=== PATIENT | female | born 1960 | race Caucasian/White ===

== ENCOUNTER 2019-07-14 13:15 | Outpatient (CLI) | payer OTHER, SELFPAY ==
--- NOTE | 2019-07-14 11:30 | DI.RAD_ITS ---
INDICATION: lbp M54.5, G89.29 OTHER CHRONIC PAIN . COMPARISON: No exams were available for comparison TECHNIQUE: 2D digital imaging was performed. FINDINGS: Thevertebral bodies are intact. A narrowed vacuum disc is identified at L5-S1. There is discogenic sc lerosis and hypertrophic spurring and there is a grade 3 L5 on S1 spondylolisthesis. The pedicle, spi nous and transverse processes appear intact. Degenerative changes involving the SI joints. The sacrum is unremarkable IMPRESSION: Degenerative bony changes are associated with a narrowed vacuum disc at L5-S1 where there is a grade 3 spondylolisthesis.
[2019-07-14 12:01] LABS: Abs Immature Grans 0.02 k/cumm (0.0-0.09); Absolute Basophil Count 0.02 k/cumm (0.0-0.2); Absolute Eosinophil Count 0.19 k/cumm (0.0-0.7); Absolute Lymphocyte Count 1.02 k/cumm (1.2-3.4); Absolute Monocyte Count 0.29 k/cumm (0.11-0.7); Absolute Neutrophil Count 3.94 k/cumm (1.2-6.7); Basophils % 0.4; Eosinophils % 3.5; HCT 38.5 % (36.0-46.0); HGB 12.6 g/dL (12.0-15.5); Immature Grans % 0.4; Lymphocytes % 18.6; Mean Corp. HGB Concentration 32.7 g/dL (32.0-36.0); Mean Corpuscular Hemoglobin 34.7 pg (27.0-33.0); Mean Corpuscular Volume 106.1 fL (80-95); Mean Platelet Volume 9.2 fL (8.0-11.0); Monocytes % 5.3; Neutrophils % 71.8; Platelet Count 177 x1000/uL (130-400); RBC 3.63 m/cumm (4.00-5.20); RBC Distribution Width 13.1 % (11.7-14.6); White Blood Cell Count 5.48 k/cumm (4.4-10.8)
[2019-07-14 12:21] LABS: Diff Comment RBC Morph Reviewed
[2019-07-14 12:22] LABS: Hypochromasia 1+; Macrocytosis 2+
[2019-07-14 13:04] LABS: ALT 26 U/L (14-59); AST 24 U/L (15-37); Albumin 3.6 g/dL (3.4-5.0); Alkaline Phosphatase 91 U/L (46-116); Anion Gap 9.8 mmol/L (3-11); BUN 17 mg/dL (7-18); Bilirubin, Total 0.6 mg/dL (0.2-1.0); CO2 28.2 mmol/L (21.0-32.0); CREATININE 1.05 mg/dL (0.55-1.02); Calcium 8.8 mg/dL (8.5-10.1); Chloride 105 mmol/L (98-107); Creatine Kinase 59 U/L (26-192); Estimated GFR 53.64 (mL/min/1.73m2); Glucose 101 mg/dL (70-100); Potassium 4.2 mmol/L (3.5-5.1); Sodium 143 mmol/L (136-145); TSH (W/Ref FT4) 2.05 uIU/mL (0.36-3.74); Total Protein 7.3 g/dL (6.4-8.2)
[2019-07-14 16:40] LABS: Calculated LDL 109 mg/dL; Cholesterol 200 mg/dL (50-200); HDL Cholesterol 68 mg/dL (40-60); Triglyceride 119 mg/dL (30-150); Vitamin B12 854 pg/mL (193-986)
== END 2019-07-14 13:35 ==
PROVIDERS: PCP Family Medicine; Visit Provider Family Medicine
DX: G89.29 Other chronic pain (principal); M54.5 Low back pain; E78.5 Hyperlipidemia, unspecified; I10 Essential (primary) hypertension; R60.0 Localized edema; D51.0 Vitamin B12 deficiency anemia due to intrinsic factor deficiency; M43.17 Spondylolisthesis, lumbosacral region; M51.36 Other intervertebral disc degeneration, lumbar region
CPT/HCPCS: 36415; 80053; 80061; 82550; 72110; 82607; 84443; 85025

== ENCOUNTER 2019-08-03 02:39 | Outpatient (CLI) | payer OTHER, SELFPAY ==
[2019-08-03 12:29] LABS: Reticulocyte 2.4 % (0.5-2.4)
[2019-08-03 13:52] LABS: Anion Gap 9.3 mmol/L (3-11); BUN 12 mg/dL (7-18); CO2 28.7 mmol/L (21.0-32.0); CREATININE 0.94 mg/dL (0.55-1.02); Calcium 9.1 mg/dL (8.5-10.1); Chloride 104 mmol/L (98-107); Folate 3.3 ng/mL (8.6-20.0); Glucose 89 mg/dL (70-100); Potassium 4.6 mmol/L (3.5-5.1); Sodium 142 mmol/L (136-145)
== END 2019-08-03 02:59 ==
PROVIDERS: PCP Family Medicine; Visit Provider Family Medicine
DX: R60.0 Localized edema (principal); D75.89 Other specified diseases of blood and blood-forming organs
CPT/HCPCS: 36415; 80048; 82746; 85045

== ENCOUNTER 2019-08-10 00:43 | Outpatient (CLI) | payer OTHER, SELFPAY ==
--- NOTE | 2019-08-10 11:52 | DI.MAMMO_ITS ---
EXAM: MAMMO SCREENING CLINICAL HISTORY: screening Z12.31. TECHNIQUE: Mammograms were interpreted according to the usual protocol including computer analysis with CAD system, tomosynthesis and C-view imaging. COMPARISON: FEBRUARY 2015 FINDINGS: The breasts are of moderate density with fairly symmetrical distribution of fibroglandular tissue. N o dominant mass or clumped microcalcification is identified in either breast. Current examination is compared with previous examinations including February 2015 and there has been no gross interval change i n appearance in comparison with the previous studies. IMPRESSION: No specific evidence of malignancy at this time. Routine screening examinations are suggested at year ly intervals due to the family history of breast carcinoma. Category 1, breast density category B. BI-RADS Cat 1 - Negative Breast Density - Category B - Scattered areas of fibroglandular density
== END 2019-08-10 01:03 ==
PROVIDERS: PCP Family Medicine; Visit Provider Family Medicine
DX: Z12.31 Encounter for screening mammogram for malignant neoplasm of breast (principal); Z80.3 Family history of malignant neoplasm of breast
CPT/HCPCS: 77063; 77067

== ENCOUNTER 2020-03-10 01:05 | Outpatient (CLI) | payer OTHER, SELFPAY ==
--- NOTE | 2020-03-10 | DI.MRI_ITS ---
EXAM: MR LUMBAR SPINE WO CLINICAL HISTORY: RADICULAR PAIN LT LOWER EXTREMITY,M54.10,RADICULOPATHY. TECHNIQUE: Multiplanar multisequence MRI was performed. COMPARISON: MR MRI - LUMBAR SPINE WO CONTRAST from 07/22/2012 FINDINGS: MR examination lumbosacral spine was performed according to the usual protocol. There is a bilateral L5 spondylolysis with spondylolisthesis of L5 on S1 approximately 20 percent of vertebral width, the findings are essentially unchanged from prior MRI of June 2012. There is associated bilateral neural foraminal narrowing at this level secondary to the spondylolisthesis. There are mild hypertrophic degenerative changes at L3-4 and L4-5. No significant bony signal abnorm ality seen. Conus medullaris appears intact. There is a moderate sized central disc herniation at L1-2 which extends above and below the disc leve l. No gross neural impingement. No central canal spinal stenosis or neural foraminal stenosis. At L2-3 there are no significant findings. At L3-4 there is a mild disc bulge with question minimal superimposed right paracentral disc herniati on. No central canal spinal stenosis or neural foraminal stenosis. No neural impingement. At L4-5 there is a mild central disc herniation, no bony central canal spinal stenosis, neural forami nal stenosis, or neural impingement. At L5-S1 there is the previously noted bilateral spondylolysis with associated spondylolisthesis and bilateral neural foraminal narrowing. No disc herniation at this level. IMPRESSION: Bilateral L5 spondylolysis with associated 20 percent anterior spondylolisthesis of L5 on S1, unchang ed from June 2012 Disc herniations at L1-2 and L 4 5 as described above, these are new since June 2012. DATA REPOSITORY:
== END 2020-03-10 01:25 ==
PROVIDERS: PCP Family Medicine; Visit Provider Nurse Practitioner
DX: M54.16 Radiculopathy, lumbar region (principal); M43.07 Spondylolysis, lumbosacral region; M43.17 Spondylolisthesis, lumbosacral region; M51.16 Intervertebral disc disorders with radiculopathy, lumbar region
CPT/HCPCS: 72148

== ENCOUNTER 2020-05-12 02:49 | Outpatient (CLI) | payer OTHER, SELFPAY ==
--- NOTE | 2020-05-12 12:00 | RT.EKG_ITS ---
APPROVED REPORT Exam: Resting ECG Patient Location: O HR:73 bpm ECG Measurements Heart Rate 73 AXIS VT 210 P 32 QRSd 89 QRS 7 QT 401 T 39 QTc 442 <Conclusion> Sinus rhythm...normal P axis, V-rate 60- 99 Prolonged VT interval...VT >210, V-rate 50- 90 Low voltage, precordial leads...precordial leads <1.0mV
[2020-05-12 12:15] LABS: Abs Immature Grans 0.01 k/cumm (0.0-0.09); Absolute Basophil Count 0.01 k/cumm (0.0-0.2); Absolute Eosinophil Count 0.18 k/cumm (0.0-0.7); Absolute Lymphocyte Count 0.99 k/cumm (1.2-3.4); Absolute Neutrophil Count 4.12 k/cumm (1.2-6.7); Basophils % 0.2; Eosinophils % 3.2; HCT 39.6 % (36.0-46.0); Immature Grans % 0.2 %; Lymphocytes % 17.6; Mean Corp. HGB Concentration 32.8 g/dL (32.0-36.0); Mean Corpuscular Hemoglobin 34.4 pg (27.0-33.0); Mean Corpuscular Volume 104.8 fL (80-95); Mean Platelet Volume 9.4 fL (8.0-11.0); Monocytes % 5.3; Neutrophils % 73.5; Platelet Count 189 x1000/uL (130-400); RBC 3.78 m/cumm (4.00-5.20); RBC Distribution Width 13.2 % (11.7-14.6); White Blood Cell Count 5.61 k/cumm (4.4-10.8)
[2020-05-12 12:25] LABS: PTT Activated 26.8 sec (21.0-31.4); Prothrombin Time 10.5 sec (9.3-11.0)
[2020-05-12 13:05] LABS: BUN 9 mg/dL (7-18); CREATININE 1.06 mg/dL (0.55-1.02); Estimated GFR 52.88 (mL/min/1.73m2)
== END 2020-05-12 03:09 ==
PROVIDERS: PCP Family Medicine; Visit Provider Neurological Surgery
DX: M43.17 Spondylolisthesis, lumbosacral region (principal)
CPT/HCPCS: 36415; 84520; 81003; 82565; 85025; 85610; 85730

== ENCOUNTER 2020-05-20 08:08 | Outpatient (CLI) | payer OTHER, SELFPAY ==
[2020-05-21 23:46] LABS: COVID-19 RT-PCR Result NEGATIVE (Negative)
== END 2020-05-20 08:28 ==
PROVIDERS: PCP Family Medicine; Visit Provider Family Medicine
DX: Z41.9 Encounter for procedure for purposes other than remedying health state, unspecified (principal)
CPT/HCPCS: U0003

== ENCOUNTER 2020-06-07 22:32 | Outpatient (REF) | payer OTHER, SELFPAY ==
[2020-06-07 22:43] LABS: Anion Gap 9.3 mmol/L (3-11); BUN 11 mg/dL (7-18); CO2 28.7 mmol/L (21.0-32.0); CREATININE 1.28 mg/dL (0.55-1.02); Calcium 9.9 mg/dL (8.5-10.1); Chloride 101 mmol/L (98-107); Estimated GFR 42.54 (mL/min/1.73m2); Glucose 102 mg/dL (74-106); Potassium 4.3 mmol/L (3.5-5.1); Sodium 139 mmol/L (136-145)
== END 2020-06-07 22:52 ==
LOC: LBN 22:32
PROVIDERS: PCP Family Medicine; Visit Provider Family Medicine
DX: I10 Essential (primary) hypertension (principal)
CPT/HCPCS: 80048

== ENCOUNTER 2020-09-27 00:42 | Outpatient (CLI) | payer OTHER, SELFPAY ==
--- NOTE | 2020-09-27 | DI.RAD_ITS ---
EXAM: XR LUMBAR SPINE AP, LAT CLINICAL HISTORY: CHECK ALIGNMENT,S/P L4-S1 LAMINECTOMY/FUSION,SPONDYLOLISTHESIS,M43.10 TECHNIQUE: COMPARISON: CR XR LUMBAR SPINE COMPLETE from 07/14/2019 MR MR LUMBAR SPINE WO from 03/10/2020 FINDINGS: Four views were obtained. There are Murry rods in place at L4, L5, and S1 levels bilaterally. There is moderate anterior spondylolisthesis of L5 on S1, unchanged from prior radiographs of 2018. No additional abnormality of alignment seen. There is narrowing of the intervertebral disc space at L5-S1 is noted the prior examination. Otherwi se intervertebral disc spaces are fairly well maintained. Mild facet hypertrophic degenerative changes noted at multiple levels. Moderate bilateral SI joint d egenerative changes, probable fusion of right SI joint inferiorly. IMPRESSION: Degenerative changes, Murry rods in place from L4-S1, persistent unchanged L5 on S1 spondylolist hesis. RADIATION DOSE DELIVERED: Total DLP Total DLP
== END 2020-09-27 01:02 ==
PROVIDERS: PCP Family Medicine; Visit Provider Nurse Practitioner
DX: M43.17 Spondylolisthesis, lumbosacral region (principal); M47.817 Spondylosis without myelopathy or radiculopathy, lumbosacral region
CPT/HCPCS: 72100

== ENCOUNTER 2021-01-06 03:46 | Outpatient (CLI) | payer OTHER, SELFPAY ==
--- NOTE | 2021-01-06 06:30 | DI.US_ITS ---
APPROVED REPORT EXAM: Comprehensive 2D, Doppler, and color-flow Echocardiogram Patient Location: Out-Patient Liner Assembler: Geraldine Naqvi RDCS (AE) Indications: Edema Other Information Study Quality: Fair. Technically limited study due to body habitus. Conclusion Normal left ventricular wall thickness and chamber size. Estimated ejection fraction is 60%. There are no segmental wall motion abnormalities Normal right ventricular size and systolic function The left atrium is borderline dilated. The right atrium is normal size. Structurally normal aortic valve without stenosis or regurgitation Mild mitral annular calcification. Trace mitral regurgitation Structurally normal tricuspid valve, trace tricuspid regurgitation, normal right ventricular systolic pressure Normal pulmonic valve Mildly dilated ascending aorta measuring 3.34 cm Wall motion Left Ventricle The left ventricle is normal size. The left ventricular systolic function is normal. The left ventric ular ejection fraction is within the normal range. There is normal left ventricular wall thickness. T here is normal LV segmental wall motion. There is no ventricular septal defect visualized. LVEF is 60 %. Right Ventricle The right ventricle is normal size. The right ventricular systolic function is normal. The RVSP is 19 .7 mmHg. Atria Left atrium is borderline dilated. The right atrium size is normal. The interatrial septum is intact with no evidence for an atrial septal defect. Aortic Valve The aortic valve is normal in structure. Aortic valve is trileaflet. There is no aortic valvular sten osis. No aortic regurgitation is present. Mitral Valve Mild mitral annular calcification. No evidence of mitral valve stenosis. Trace mitral regurgitation. Tricuspid Valve The tricuspid valve is normal in structure. There is no tricuspid valve stenosis. Trace tricuspid reg urgitation. Pulmonic Valve Pulmonic valve is grossly normal in structure. There is no pulmonic valvular stenosis. There is no pu lmonic valvular regurgitation. Great Vessels The aortic root is normal in size. The ascending aorta is mildly dilated. IVC is normal in size and c ollapses >50% with inspiration. Pericardium There is no pericardial effusion. 2D Dimensions IVSD d PLAX 0.95 cm F: 0.6-1.0 LV Vol A2C d MOD 134.4 mL LVPW d PLAX 0.96 cm F: 0.6 - 1.0 LV Vol A4C d MOD 124.4 mL LVID d PLAX 4.49 cm F: 3.8 - 5.2 LA vol/ BSA A2C s A-L 36.3 mL/m2 LVDs 3.15 cm F: 2.2 - 3.5 LA vol/ BSA A4C s A-L 38.7 mL/m2 Ao Root d 3.14 cm F: 2.7 - 3.3 LA Vol/ BSA Biplane s A-L 38.3 mL/m2 RA Area A4C 15.66 cm2 LA Area A4C s MOD 24.13 cm2 RA Vol/ BSA A4C s A-L 21.5 mL/m2 LA Area A2C s MOD 22.89 cm2 Ao Asc Diam d 3.34 cm F: 2.3 - 3.1 LV EF A4C MOD 61.5 % LV EF Teichholz 56.2 % LV EF A2C MOD 60.6 % LVEF (Calvo's) 59.96 % F: 54 - 74 LV EF Biplane MOD 60.0 % LV Volume 96.70 mL F: 46 - 106 SV 78.58 mL LV Volume Index 46.04 mL/m2 F: 29 - 61 SV Index 37.39 mL/m2 LV Vol Biplane MOD 131.1 mL FS 29.20 % M-Mode TAPSE 2.35 cm (M/F) >1.7 LV Diastology MV E' medial 0.132 (>0.07 m/s) E/A Ratio 1.3 LV E/e MED 8.50 (<14) MV E Vmax 1.13 (0.4-1.3 m/s) MV E' lateral 0.137 (>0.1 m/s) MV A Vmax 0.90 (0.4-1.3 m/s) LV E/e LAT 8.20 (<14) MV E/A Ratio 1.19 MV E/E' medial 8.53 MV E/E' lateral 8.23 Aortic Valve LVOT Area 2.85 cm2 AoV Area Vmax 2.43 cm2 LVOT Vmax 1.32 m/s AoV Area/ BSA (Vmax) 1.16 cm2/m2 LVOT Mean Puma. 0.83 m/s ADA Mean Puma. 2.11 cm2 LVOT Peak Grad 7.0 mmHg ADA Mean Puma. Index 1.00 cm2/m2 LVOT Mean Grad 3.3 mmHg LVOT VTI 0.271 m LVOT Diam s 1.90 cm AoV Vmax 1.55 m/s Velocity Ratio 0.85 AoV Mean Puma. 1.12 m/s AoV Peak Grad 9.6 mmHg LVOT SV 77.35 mL AoV Mean Grad 5.6 mmHg AoV VTI 0.307 m AoV Area VTI 2.52 cm2 AoV Area/ BSA (VTI) 1.20 cm/m2 Mitral Valve MV DT 193 (160-240 msec) MV PHT 56 msec MV Area PHT 3.92 cm2 MV VTI 0.271 m MV VTI Annulus 0.280 m MV Area VTI 2.96 (4.0-6.0 cm2) Pulmonary Valve PV Vmax 1.08 (0.5-1.5 m/s) RVOT Peak Gr. 2.89 mmHg PV Peak Grad 4.6 mmHg RVOT Mean Gr. 1.55 mmHg PV Mean Grad 2.8 mmHg RVOT VTI 0.209 m PV VTI 0.243 m RVOT Vmax 0.85 m/s Tricuspid Valve TR Peak Grad 16.6 mmHg TR Vmax 2.04 m/s RA Pressure 3.00 mmHg RVSP (TR) 19.7 mmHg
== END 2021-01-06 04:06 ==
PROVIDERS: PCP Family Medicine; Visit Provider Nurse Practitioner
DX: R60.0 Localized edema (principal); I77.810 Thoracic aortic ectasia
CPT/HCPCS: 93306

== ENCOUNTER 2021-07-20 12:09 | Outpatient (REF) | payer OTHER, SELFPAY ==
--- NOTE | 2021-07-20 13:40 | PAPFT_PTH ---
PATIENT: Bing Bernal LOC: [facility] U#:[id number] AGE/SX: 61/F ROOM: RE07/20/[address]: Lisa Lowry, PhD SOCIAL MEDIA SR STRATEGY MANAGER : 1960 BED: DIS: 07/20/2021 SPEC #: [id number] RECD: 07/21/21 12:58 STATUS: [facility] RETodd #: [id number] DANELLE: 07/20/21 13:[address]: Lisa Lowry DEPT: [facility] Cytology RECD BY: Aster Murphy Tissues: 1 - CX/ENDOCX FOR PAP SMEARS Procedures: PAP THIN PREP/UVM Screening HPV DNA PROBE Comments: [id number]
== END 2021-07-20 12:10 | disposition home or self-care (01) ==
LOC: LBN 12:09
PROVIDERS: PCP Nurse Practitioner; Visit Provider Nurse Practitioner
DX: Z12.4 Encounter for screening for malignant neoplasm of cervix (principal); Z11.51 Encounter for screening for human papillomavirus (HPV)
CPT/HCPCS: 88142; 87624

== ENCOUNTER 2021-08-17 01:53 | Outpatient (CLI) | payer OTHER, SELFPAY ==
--- NOTE | 2021-08-17 06:15 | DI.MAMMO_ITS ---
Exam(s) MAMMO SCREENING EXAM: MAMMO SCREENING CLINICAL HISTORY: screening,Z12.39. TECHNIQUE: Bilateral full field digital CC and MLO mammographic images were obtained with 3D tomosyn thesis and utilizing computer aided detection (CAD). COMPARISON: Prior mammograms dating back to 2014, the most recent being July 2019. FINDINGS: Asymmetric tissue in the right breast is unchanged from prior studies. There are no new spiculated masses nor malignant appearing microcalcification groups. There is no significant architectural distortion nor skin thickening-retraction. IMPRESSION: No radiographic evidence of malignancy. BI-RADS Category 1 - Negative Breast Density - Category B - Scattered areas of fibroglandular density Breast density Category C or D implies that the patient has dense breast tissue. Dense breast tissue can make it harder to find cancer on a mammogram. Dense breast tissue is also associated with an incr eased risk of breast cancer. This information about the result of the mammogram report was provided to the patient to raise their awareness. Use this report when you speak with the patient about their risks for breast cancer, which includes their family history. At that time, you may recommend additional screening tests (Ultrasoun d or MRI) as these tests may add significant information. A negative radiographic report should not delay biopsy if a dominant or clinically suspicious mass is present. Up to ten percent of cancers are not identified on mammography. A negative report may reinforce clinical impression. Adenosis and dense breasts may obscure an underlying neoplasm. False positive reports average 6 to 10%. Patient will receive a letter notifying them of these results.
== END 2021-08-17 02:13 ==
PROVIDERS: PCP Nurse Practitioner; Visit Provider Nurse Practitioner
DX: Z12.31 Encounter for screening mammogram for malignant neoplasm of breast (principal)
CPT/HCPCS: 77063; 77067

== ENCOUNTER 2021-08-17 02:42 | Outpatient (CLI) | payer OTHER, SELFPAY ==
[2021-08-17 08:55] LABS: Hemoglobin A1C 5.3 % (<5.7)
[2021-08-17 09:26] LABS: CREATININE 1.2 mg/dL (0.55-1.02); Estimated GFR 45.67 (mL/min/1.73m2); Potassium 4.4 mmol/L (3.5-5.1)
== END 2021-08-17 02:43 | disposition home or self-care (01) ==
LOC: LBO 02:42
PROVIDERS: PCP Nurse Practitioner; Visit Provider Nurse Practitioner
DX: I10 Essential (primary) hypertension (principal); R60.0 Localized edema; Z13.1 Encounter for screening for diabetes mellitus
CPT/HCPCS: 36415; 82565; 83036; 84132

== ENCOUNTER 2021-09-23 16:52 | Observation (INO) | payer OTHER, SELFPAY ==
[2021-09-23] VITALS (27 sets, daily range): BP systolic 101–133; BP diastolic 66–96; PULSE 86–107; RESP 12–29; TEMP 36.5–37.5; O2SAT 95–100
--- NOTE | 2021-09-23 17:30 | DI.RAD_ITS ---
Exam(s) XR PORTABLE CHEST AP EXAM: XR PORTABLE CHEST AP CLINICAL HISTORY: syncope. TECHNIQUE: 2D digital imaging was performed. COMPARISON: CR CHEST 2 VIEWS PA,LAT from 04/01/2009 FINDINGS: Cardiomegaly, mild-moderate.. The mediastinum is not widened. Lungs are clear. No infiltrates nor obvious pleural effusions. No evidence of pulmonary edema. IMPRESSION: No acute pulmonary findings on this single AP portable view of the chest. Mild-moderate cardiomegaly noted. DATA REPOSITORY: RADIATION DOSE DELIVERED: All CT scans at this facility use at least one of these dose optimization techniques: automated exposure control; mA and/or kV adjustment per patient size (includes targeted e xams where dose is matched to clinical indication); or iterative reconstruction.
--- NOTE | 2021-09-23 17:30 | RT.EKG_ITS ---
APPROVED REPORT Exam: Resting ECG Reason for Exam: syncope Patient Location: E HR:96 bpm ECG Measurements Heart Rate 96 AXIS MO 235 P 46 QRSd 95 QRS 4 QT 364 T 9 QTc 459 Conclusion Sinus rhythm. Prolonged MO interval. Low voltage, precordial leads Nonspecific T abnormalities
--- NOTE | 2021-09-23 18:05 | NUR.NOTE ---
Nursing Note: Karthik [phone]
[2021-09-23 18:19] LABS: Abs Immature Grans 0.07 10^3/uL (0.0-0.06); Absolute Basophil Count 0.04 10^3/uL (0.0-0.2); Absolute Eosinophil Count 0.09 10^3/uL (0.0-0.7); Absolute Lymphocyte Count 1.01 10^3/uL (1.2-3.4); Absolute Monocyte Count 0.36 10^3/uL (0.1-0.8); Absolute Neutrophil Count 7.66 10^3/uL (1.2-6.7); Basophils % 0.4; Immature Grans % 0.8; Lymphocytes % 10.9; MCHC 34.1 % (32.0-36.0); MCV 102.5 fL (80-95); MPV 9.2 fL (8.0-11.0); Monocytes % 3.9; Nucleated RBC 0 %; Platelet Count 245 10^3/uL (130-400); RDW 12.3 % (11.7-14.6); RDW-SD 46.3 fL; WBC 9.23 10^3/uL (4.4-10.8)
--- NOTE | 2021-09-23 18:22 | ED.GENADUL_ITS ---
Discharge Plan Disposition Patient Disposition: [facility] INPATIENT Condition: Good Discharge Details Clinical Impression: Alcohol intoxication, Syncope, UTI (urinary tract infection) Admit Date/Time: 09/23/21 23:00 Admit Provider: Jasvir Jorge Attending Provider: Jasvir Jorge Primary Care Provider: Lisa Lowry ED Provider: Aster Abad Discharge Data Discharge Date/Time-TO BE ENTERED AT DEPARTURE: 09/23/21 23:02 Medical Decision Making Patient is alert and oriented, pleasant in demeanor Has an abrasion that is not suturable to the bridge of her nose Ordered CTA head and neck given syncopal event Patient is notably tachycardic, 110 upon arrival, lactic acid elevated at 5.6 No leukocytosis, stable blood pressure The alcohol level was ordered at the request of admitting hospitalist, found to be elevated Patient patient is agreeable to admission at this time, on reassessment she does admit to 1 vodka with orange juice daily She states she not had a drink since last month Urinalysis positive for UTI, 20-50, positive for leukocyte esterase, urine culture pending Received 1 L of IV fluid resuscitation No signs of withdrawal Patient with unsteady gait, not safe for discharge home, with lactic acidosis and urinary tract infection with tachycardia, will need to be admitted to the hospital She has a negative CTA per radiology interpretation in my review Case discussed with Dr. Jorge, admitting hospitalist Medical Records Medical records reviewed: Yes I reviewed the patient's medical records. Lab Data Lab results reviewed: Yes I reviewed the patient's lab results. HPI General Mode of arrival: ambulatory . Date/Time Provider Initiated Documentation: 09/23/21 16:59 . Limitations to Documentation: no limitations . Information obtained by: patient . HPI Narrative: This 61-year-old female with history of sleep apnea, spondylolisthesis hyperlipidemia Patient, denies any chest pain or shortness of breath. She feels weak she denies any dizziness. She states she has had a headache for the past week and a half. She states this is unusual for her. Today and yesterday she felt quite tired. tetanus UTD.Today she went on to go to the bathroom and she had a syncopal events. She does not remember the event but woke up to her standing over her. She has never had an episode of syncope before. She denies any current neck pain, headache, urinary symptoms. She denies any abdominal discomfort or fever or chills. She denies any new medications. Related Data Home Medications Medication Instructions Recorded Confirmed calcium carbonate [Tums] 4 tab PO DAILY tab.chew 02/10/13 09/23/21 cholecalciferol (vitamin D3) 1 tab PO DAILY 02/10/13 09/23/21 [Vitamin D3] cyanocobalamin (vitamin B-12) 1 tab PO DAILY 02/10/13 09/23/21 [Vitamin B-12] milk thistle 2 cap PO DAILY 02/10/13 09/23/21 aspirin [Aspirin Low-Strength] 81 mg PO DAILY tab-cap 12/30/14 09/23/21 omeprazole 40 mg PO BID #180 tab-cap 02/03/16 09/23/21 coenzyme Q10 [Co Q-10] 100 mg PO DAILY 30 Days #30 tab-cap 02/05/18 09/23/21 mometasone 0.1 % topical ointment 1 applic TP DAILY PRN #45 gm 07/14/19 09/23/21 atenolol 50 mg tablet 50 mg PO DAILY #90 tab-cap 06/15/21 09/23/21 folic acid 1 mg tablet 1 mg PO DAILY #90 tab 06/15/21 09/23/21 nifedipine 30 mg tablet,extended 30 mg PO DAILY #90 tab 06/15/21 09/23/21 release spironolactone 50 mg tablet 50 mg PO QAM #90 tab 06/15/21 09/23/21 Previous Rx's Medication Instructions Recorded coenzyme Q10 [Co Q-10] 100 mg PO DAILY 30 Days #30 tab-cap 02/05/18 mometasone 0.1 % topical ointment 1 applic TP DAILY PRN #45 gm 07/14/19 atenolol 50 mg tablet 50 mg PO DAILY #90 tab-cap 06/15/21 folic acid 1 mg tablet 1 mg PO DAILY #90 tab 06/15/21 nifedipine 30 mg tablet,extended 30 mg PO DAILY #90 tab 06/15/21 release spironolactone 50 mg tablet 50 mg PO QAM #90 tab 06/15/21 Allergies Allergy/AdvReac Type Severity Reaction Status Date / Time oxycodone Allergy Intermediate Unverified 09/23/21 17:05 sucralfate Allergy Intermediate Itching Unverified 09/23/21 17:05 furosemide Allergy Mild Unverified 09/23/21 17:05 hydrochlorothiazide Allergy Mild Unverified 09/23/21 17:05 influenza A (H5N1) virus AdvReac Unverified 09/23/21 23:48 vaccine mo General Stated Complaint: AMS/LOC MAURICIO: 2 Review of Systems All systems reviewed & are unremarkable except as noted in HPI and below PFSH Active Problem List Alcohol intoxication (Acute) Syncope (Chronic) UTI (urinary tract infection) (Acute) Lactic acid acidosis (Acute) UTI (urinary tract infection) (Acute) HTN (hypertension) (Chronic) Sleep apnea (Acute) Psoriasis (Chronic) Folic acid deficiency (Acute) Spondylolisthesis at L5-S1 level (Acute) Pedal edema (Acute) Essential hypertension (Acute) Gastroesophageal reflux disease with esophagitis (Acute) Headache (Acute 09/26/04) Hyperlipidemia (Acute) Pernicious anemia (Acute 09/26/06) Medical History Non-toxic uninodular goiter thyroid cyst-removed by Dr. Flores 1999 Surgical History Cholecystectomy Status post cholecystectomy Family History Mother , age 48 Breast cancer Father , age 90 Stomach cancer Sister No problems noted. Brother No problems noted. Brother No problems noted. Brother No problems noted. Maternal Grandmother , in her 80s No problems noted. Paternal Grandmother , in her 80s No problems noted. Social History Smoking/Tobacco Use Status: Never Smoking risk assessment performed?: Yes Alcohol Intake: current Alcohol Intake frequency: 0-2 drinks per day Alcohol type: beer, wine and hard liquor Drug use: Never Caregiver/Support person: No Household members: spouse Housing: house Communication Needs: None Do you need help understanding health information?: Never Pets and animals: No Sexually active: No Do you think of yourself as: straight/heterosexual Current gender identity: female What is your relationship status?: How often do you talk on the phone with friends or family?: three or more times per week How often do you get together with friends or relatives?: once per week How often do you attend nondenominational or rastafari services?: 1-3 times per year Do you belong to any clubs or organized social groups?: yes Panel score (0-1 are the most socially isolated patients): 3 What type of physical activity do you participate in: none Jodee/Mormon: Jainism Special jodee needs: No Seatbelt use: always Drive intox 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 carrier driver: No Do you feel safe at home: Yes Do you feel safe in your relationship?: Yes Exam Const General: cooperative and comfortable HENMT Other: No septal hematoma, abrasion to bridge of nose Eyes Pupils: PERRL Neck Other: No midline tenderness Resp Effort & Inspection: normal respiratory effort Auscultation: clear to auscultation bilaterally Cardio Rate: regular rate Rhythm: regular rhythm GI Inspection: normal to inspection Other: Nontender abdominal exam, no CVA tenderness, no abdominal bruit or pulsatile mass Skin General skin exam: no rashes or lesions noted Neuro General: patient alert and patient oriented x3 Cranial Nerves: CN's II-XI intact bilaterally and tongue midline Cognition: normal cognition Speech: speech normal Other: Strength and sensation intact distally Extrem Other: 3+ edema to bilateral lower extremities Course Vital Signs Vital signs: Vital Signs Temperature 37.5 C 09/23/21 17:00 Pulse 107 H 09/23/21 17:00 Respiratory Rate 20 09/23/21 17:00 Blood Pressure 124/83 09/23/21 17:00 Pulse Oximetry 97 09/23/21 17:00 Temperature 37.5 C 09/23/21 17:00 Temperature Source Tympanic 09/23/21 17:00 Pulse 107 H 09/23/21 17:00 Respiratory Rate 17 09/23/21 17:21 Respiratory Effort 09/23/21 17:21 Respiratory Depth Normal 09/23/21 17:21 Respiratory Pattern Normal 09/23/21 17:21 Blood Pressure 124/83 09/23/21 17:00 Pulse Oximetry 97 09/23/21 17:00 Oxygen Delivery Method Room Air 09/23/21 17:00 Oxygen Flow Rate 0 09/23/21 17:00 Pain Level 0 09/23/21 17:00 Critical Care Time Critical Care Time Critical Care Time: Yes Total Critical Care Time: 45 Attestation: Telemetry monitoring, IV antibiotics, IV fluid resuscitation, admission to hospital, CT imaging of head and neck, diagnostic laboratory evaluation PAWSS Have you Been Recently Intoxicated or Drunk Within the Last 30 days?: No Have you Ever Experienced Previous Episodes of Alcohol Withdrawal?: No Have you ever Experienced Withdrawal Seizures?: No Have you ever Experienced Delirium Tremens(DT)s?: No Have you ever undergone Alcohol Rehabilitation Treatment (i.e, inpt ot outpatient treatment programs)?: No Have you ever Experienced Blackouts?: No Have you ever Combined Alcohol with other Downers within the last 90 days?: No Have you ever Combined Alcohol with any other Substance of Abuse during the last 90 days?: No Result: 0
[2021-09-23 18:25] LABS: Lactate 5.5 mmol/L (0.6-1.4)
[2021-09-23 18:35] LABS: Bilirubin Negative (Negative); Blood Small (Negative); Clarity Sl Cloudy (Clear); Glucose Negative (Negative); Ketones Trace mg/dL (Negative); Leukocyte Esterase Moderate (Negative); Nitrite Negative (Negative); Specific Gravity 1.015 (1.005-1.025); Urobilinogen 0.2 EU/dL (Up TO 0.2); pH 5.5 (5-8)
[2021-09-23 18:41] LABS: Magnesium 1.7 mg/dL (1.8-2.4)
[2021-09-23 18:44] LABS: Troponin I < 0.05 ng/mL (<0.06)
[2021-09-23 18:46] LABS: ALT 45 U/L (14-59); AST 68 U/L (15-37); Albumin 3.6 g/dL (3.4-5.0); Alkaline Phosphatase 104 U/L (46-116); Anion Gap 16.5 mmol/L (3-11); BUN 9 mg/dL (7-18); Bilirubin, Total 0.4 mg/dL (0.2-1.0); CO2 20.5 mmol/L (21.0-32.0); CREATININE 1.1 mg/dL (0.55-1.02); Calcium 9.5 mg/dL (8.5-10.1); Chloride 102 mmol/L (98-107); Glucose 109 mg/dL (74-106); Sodium 139 mmol/L (136-145); Total Protein 8.8 g/dL (6.4-8.2)
[2021-09-23 18:53] LABS: Source Nasal/Nares
[2021-09-23] MEDS: Normal Saline 1,000 ML 1000 ML IV (18:54)
[2021-09-23] MEDS: cefTRIAXone 2 GM/50 ML BAG IVPB (19:04)
[2021-09-23 19:10] LABS: Bacteria Many HPF (Negative); C & S Indicated? Yes; Casts Negative LPF (Negative); Crystals Negative HPF (Negative); Epithelial Cells Few HPF (Negative); Mucus Negative (Negative); WBC 20-50 HPF (0-5)
[2021-09-23 19:30] LABS: COVID-19 PCR Negative (Negative)
--- NOTE | 2021-09-23 21:10 | DI.CT_ITS ---
Exam(s) CT BRAIN NECK CTA EXAM: CT BRAIN NECK CTA CLINICAL HISTORY: headache and syncope. TECHNIQUE: Imaging Protocol: Axial CT angiography was performed with multi-slice acquisition and mu lti-planar and/or 3D reconstructions. CONTRAST MATERIAL: Intravenous: Omnipaque 350 Contrast volume:structured data in ml COMPARISON: No exams were available for comparison FINDINGS: CTA Neck W: Aortic arch anatomy: Left vertebral artery originates off of the aortic arch instead of off the subcl tamela artery. Anterior circulation: Both common carotid arteries ascend with normal luminal diameters. No significant stenosis at the ca rotid bifurcations nor within the proximal internal carotid arteries in the neck. Both internal phillips tid arteries are patent in the upper neck and skull base-carotid canals. Posterior circulation: Both vertebral arteries ascend with normal luminal diameters within the foramen transversarium. Diam eters of these vessels are approximately equal. No intraluminal thrombus nor dissection. The right vertebral artery is mildly dominant. Both vertebral arteries contribute to the formation of the basi lar artery at the skull base. CTA Brain W: Anterior circulation: Both internal carotid arteries are patent in the skull base-carotid canals as well as within the cave rnous sinuses. Supraclinoid aspects are patent. Both A1 segments are patent as are the anterior cer ebral arteries and there is no evidence of aneurysm at the level of the anterior communicating artery . Both middle cerebral arteries are patent. Posterior circulation: Basilar artery ascends in the midline. Distally gives off superior cerebellar arteries and above thi s level terminates as patent bilateral posterior cerebral arteries. There is no evidence of aneurysm at the tip of the basilar artery. CT BRAIN: There is no evidence of intracranial hemorrhage, mass effect, or shift of midline structures. There are no extra-axial fluid collections. Ventricles are not enlarged or shifted. There are no ring enh ancing lesions in the brain and no abnormal meningeal enhancement. Small area of hypodensity in the left parietal white matter noted. No abnormal enhancement at this l evel. Probably related to chronic small vessel disease. IMPRESSION: 1. There is no significant stenosis in the carotid arteries in the neck. Both vertebral arteries are patent. No dissection 2. Patent intracranial arteries. No significant stenosis nor occlusion. 3. Other findings as above. No ring enhancing lesions in the brain. No abnormal meningeal enhance ment. RADIATION DOSE DELIVERED: 1,906.36mGy.cm Total DLP DATA REPOSITORY: All CT scans at this facility are submitted to the National Radiology Data Registry (NRDR) Dose Index Registry (DIR) with the [employer] ([employer]). RADIATION OPTIMIZATION: All CT scans at this facility use at least one of these dose optimization te chniques: automated exposure control; mA and/or kV adjustment per patient size (includes targeted exa ms where dose is matched to clinical indication); or iterative reconstruction.
[2021-09-23] MEDS: Omnipaque 350 MG/ML 50 ML BTL IJ ×2 (21:20→21:21)
[2021-09-23] MEDS: Normal Saline - Diluent 50 ML VIAL IV (21:20)
[2021-09-23] MEDS: Normal Saline Flush 10 ML SYR IVP (21:21)
--- NOTE | 2021-09-23 22:01 | DI.VRAD_ITS ---
PROCEDURE INFORMATION: Exam: XR Chest Exam date and time: 09/23/2021 5:38 PM Age: 61 years old Clinical indication: Other: Syncope TECHNIQUE: Imaging protocol: XR of the chest. Views: 1 view. COMPARISON: CT BRAIN NECK CTA 09/23/2021 8:32 PM FINDINGS: Lungs: Unremarkable. No consolidation. Pleural spaces: Unremarkable. No pleural effusion. No pneumothorax. Heart/Mediastinum: Heart appears enlarged. Bones/joints: Unremarkable. IMPRESSION: [id number] cardiac enlargement Dictated and Authenticated by: Grant Garcia MD. Ordering:IKE Rodarte MD
--- NOTE | 2021-09-23 22:31 | DI.VRAD_ITS ---
PROCEDURE INFORMATION: Exam: CT Angiography Head Without And With Contrast, Arteriography Exam date and time: 09/23/2021 5:38 PM Age: 61 years old Clinical indication: Other: Headache and syncope TECHNIQUE: Imaging protocol: Computed tomographic angiography of the head without and with contrast. Exam focused on the arteries. 3D rendering (Not supervised by radiologist): MIP and/or 3D reconstructed images were created by the technologist. Radiation optimization: All CT scans at this facility use at least one of these dose optimization techniques: automated exposure control; mA and/or kV adjustment per patient size (includes targeted exams where dose is matched to clinical indication); or iterative reconstruction. Contrast material: OMNIPAQUE 350; Contrast volume: 85 ml; Contrast route: INTRAVENOUS (IV); COMPARISON: No relevant prior studies available. FINDINGS: ANTERIOR CIRCULATION: Right internal carotid artery: Intracranial segment is patent with no evidence of hemodynamically significant stenosis. No aneurysm. Right middle cerebral artery: No occlusion or significant stenosis. No aneurysm. Right anterior cerebral artery: No occlusion or significant stenosis. No aneurysm. Left internal carotid artery: Intracranial segment is patent with no evidence of hemodynamically significant stenosis. No aneurysm. Left middle cerebral artery: No occlusion or significant stenosis. No aneurysm. Left anterior cerebral artery: No occlusion or significant stenosis. No aneurysm. POSTERIOR CIRCULATION: Right vertebral artery: No occlusion or significant stenosis. No aneurysm. Left vertebral artery: No occlusion or significant stenosis. No aneurysm. Basilar artery: No occlusion or significant stenosis. No aneurysm. Right posterior cerebral artery: No occlusion or significant stenosis. No aneurysm. Left posterior cerebral artery: No occlusion or significant stenosis. No aneurysm. HEAD: Brain: Nonspecific hypodensities of the periventricular and deep subcortical white matter, most likely secondary to chronic small vessel ischemic change. No intracranial hemorrhage or extra-axial fluid collection. No evidence of mass effect or midline shift. Crane-white matter differentiation is normal. Cerebral ventricles: Mild prominence of the ventricles and sulci, most likely attributed to parenchymal volume loss. Bones/joints: Unremarkable. No acute fracture. Paranasal sinuses: Visualized sinuses are normal. No fluid levels. Mastoid air cells: Visualized mastoids are normal. No mastoid effusion. Soft tissues: Unremarkable. IMPRESSION: 1. No intracranial arterial occlusion or significant stenosis. 2. No acute findings on non-contrast Head CT images. ASPECTS score 10. 3. Chronic findings, as above. PROCEDURE INFORMATION: Exam: CT Angiography Neck With Contrast Exam date and time: 09/23/2021 5:38 PM Age: 61 years old Clinical indication: Other: Headache and syncope TECHNIQUE: Imaging protocol: Computed tomography angiography of the neck with contrast. 3D rendering (Not supervised by radiologist): MIP and/or 3D reconstructed images were created by the technologist. Radiation optimization: All CT scans at this facility use at least one of these dose optimization techniques: automated exposure control; mA and/or kV adjustment per patient size (includes targeted exams where dose is matched to clinical indication); or iterative reconstruction. Contrast material: OMNIPAQUE 350; Contrast volume: 85 ml; Contrast route: INTRAVENOUS (IV); COMPARISON: No relevant prior studies available. FINDINGS: Right common carotid artery: No significant stenosis. No dissection or occlusion. Right internal carotid artery: Extracranial segment is patent with no significant stenosis (0% stenosis by NASCET criteria). No dissection or occlusion. Right external carotid artery: No occlusion or significant stenosis. Left common carotid artery: No significant stenosis. No dissection or occlusion. Left internal carotid artery: Extracranial segment is patent with no significant stenosis (0% stenosis by NASCET criteria). No dissection or occlusion. Left external carotid artery: No occlusion or significant stenosis. Right vertebral artery: No significant stenosis. No dissection or occlusion. Left vertebral artery: No significant stenosis. No dissection or occlusion. Soft tissues: Unremarkable. Bones/joints: No acute fracture. IMPRESSION: No occlusion or significant stenosis in the arteries of the neck. REFERENCES: NASCET CRITERIA. The degree of internal carotid artery stenosis is based on NASCET criteria. Normal is no stenosis. Mild is less than 50% stenosis. Moderate is 50-69% stenosis. Severe is 70% to 99% stenosis. Total occlusion is no detectable patent lumen. Dictated and Authenticated by: Jamin Dumont MD. Ordering:IKE Rodarte MD
--- NOTE | 2021-09-23 22:44 | NUR.NOTE ---
pts notified of the admission staus . he will call in the AMNursing Note:
[2021-09-23 23:07] LABS: ETHANOL BLOOD 241.7 mg/dL (<10)
[2021-09-23 23:11] LABS: Lactate 4.3 mmol/L (0.6-1.4)
[2021-09-23] MEDS: Acetaminophen 325 MG TAB 650 MG PO (23:11)
--- NOTE | 2021-09-23 23:13 | W.PM.HP.N ---
Date of service: 09/23/21 Time of Service: 23:13 Assessment and Plan Assessment and plan (1) Syncope: Start date: 09/23/21 Status: Acute Assessment and plan: This is a 61-year-old lady who had a syncopal episode on the way to the bathroom after having had vodka and orange juice drinking and not feeling well with headache and neck pain for the last week. She denies any incontinence or seizure activity and awakened without postictal symptoms. His management menstruation syncope the patient not having voided as of yet but possibly a vasovagal event. She has a UTI and did not have urinary complaints but could have contributed to this episode. He had lactic acidosis and tachycardia which resolved with IV fluid resuscitation in the ED. Patient will be observed with treatment of reversible problems and need to be evaluated by PT and OT. Expectation is that she will return home with her . Qualifiers: Syncope type: vasovagal syncope Qualified Code(s): R55 - Syncope and collapse (2) Lactic acid acidosis: Start date: 09/23/21 Status: Acute Assessment and plan: Probably secondary to dehydration with recent alcohol use and not feeling well with possible decreased intake but this is reversed with IV hydration and patient has resolved her tachycardia indicating hydration management issue. (3) UTI (urinary tract infection): Start date: 09/23/21 Status: Acute Assessment and plan: IV Rocephin and convert to oral antibiotic with guidance from urine culture with pathogen and sensitivities. Increase oral hydration. Qualifiers: Hematuria presence: without hematuria Urinary tract infection type: acute cystitis Qualified Code(s): N30.00 - Acute cystitis without hematuria (4) HTN (hypertension): Status: Chronic Assessment and plan: Patient will not be continued on spironolactone and Procardia while being observed but atenolol will be given. Advance back home therapy as needed. Evaluate for orthostasis as patient is moving with OT and PT evaluation. Patient is obese and can work on weight. Qualifiers: Hypertension type: primary hypertension Qualified Code(s): I10 - Essential (primary) hypertension History of Present Illness History of Present Illness Chief Complaint: Syncopal episode Narrative: This is a 61-year-old female patient with a history of hypertension on 3 different agents including spironolactone with atenolol and nifedipine ER who presented after a syncopal episode as she was getting up to go to the bathroom at home. She awakened with with her over her and did have a superficial laceration over the bridge of her nose which does not require repair. She has had a headache with neck pain for about a week prior to this event and had a drink of vodka with orange juice evening of admission. She had not been drinking daily. Patient does have a cocktail. She denies previous alcohol withdrawal. She denies previous syncope. Her headache and neck pain were improved after her syncopal episode. She has a history of degenerative disc disease of her back and she is short stature and obese. She usually ambulates without difficulty. She is not on any chronic pain medication. In the ED the patient was found to have a UTI with lactic acidosis and alcohol level in the range of intoxication. He required IV fluid resuscitation and started on Rocephin with urine culture pending. He manifested no cardiac dysrhythmia on monitor and tachycardia resolved after IV fluid resuscitation. Patient is eating and drinking well. She does have history of possible migraines but these are not frequent. She has never had focal neurological complaints. She had a syncopal episode on the way to the bathroom not after urination. Pertinent review of systems otherwise unrevealing with patient comfortable lying in bed not able to ambulate without assist in the ED and still requiring assistance to sit up in bed for exam. Review of Systems Narrative: 13 point review of systems otherwise unrevealing. Patient denies any incontinence or focal neurological symptoms after a syncopal episode. She had no prodrome prior to her syncopal episode. She has not been feeling well in general prior to her syncope most of her headache and neck pain but she denied any dysuria or urgency with urination.. [facility] Active Problem List Alcohol intoxication (Acute) Syncope (Chronic) UTI (urinary tract infection) (Acute) Lactic acid acidosis (Acute) UTI (urinary tract infection) (Acute) HTN (hypertension) (Chronic) Syncope (Chronic) Sleep apnea (Acute) Psoriasis (Chronic) Folic acid deficiency (Acute) Spondylolisthesis at L5-S1 level (Acute) Pedal edema (Acute) Essential hypertension (Acute) Gastroesophageal reflux disease with esophagitis (Acute) Headache (Acute 09/26/04) Hyperlipidemia (Acute) Pernicious anemia (Acute 09/26/06) Medical History Non-toxic uninodular goiter thyroid cyst-removed by Dr. Flores 1999 Surgical History Cholecystectomy Status post cholecystectomy Family History Mother , age 48 Breast cancer Father , age 90 Stomach cancer Sister No problems noted. Brother No problems noted. Brother No problems noted. Brother No problems noted. Maternal Grandmother , in her 80s No problems noted. Paternal Grandmother , in her 80s No problems noted. Social History Smoking/Tobacco Use Status: Never Smoking risk assessment performed?: Yes Alcohol Intake: current Alcohol Intake frequency: 0-2 drinks per day Alcohol type: beer, wine and hard liquor Drug use: Never Caregiver/Support person: No Household members: spouse Housing: house Communication Needs: None Do you need help understanding health information?: Never Pets and animals: No Sexually active: No Do you think of yourself as: straight/heterosexual Current gender identity: female What is your relationship status?: How often do you talk on the phone with friends or family?: three or more times per week How often do you get together with friends or relatives?: once per week How often do you attend muslim or anabaptism services?: 1-3 times per year Do you belong to any clubs or organized social groups?: yes Panel score (0-1 are the most socially isolated patients): 3 What type of physical activity do you participate in: none Jodee/Anabaptist: Adventist Special jodee needs: No Seatbelt use: always 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 Do you feel safe at home: Yes Do you feel safe in your relationship?: Yes Meds Allergies and Home Medications Allergies Allergy/AdvReac Type Severity Reaction Status Date / Time oxycodone Allergy Intermediate Unverified 09/23/21 17:05 sucralfate Allergy Intermediate Itching Unverified 09/23/21 17:05 furosemide Allergy Mild Unverified 09/23/21 17:05 hydrochlorothiazide Allergy Mild Unverified 09/23/21 17:05 influenza A (H5N1) virus AdvReac Unverified 09/23/21 23:48 vaccine mo Home Medications Medication Instructions Recorded Confirmed Type calcium carbonate [Tums] 4 tab PO DAILY tab.chew 02/10/13 09/23/21 History cholecalciferol (vitamin D3) 1 tab PO DAILY 02/10/13 09/23/21 History [Vitamin D-400] cyanocobalamin (vitamin B-12) 1 tab PO DAILY 02/10/13 09/23/21 History [Vitamin B-12] milk thistle 2 cap PO DAILY 02/10/13 09/23/21 History aspirin [Aspirin Low-Strength] 81 mg PO DAILY tab-cap 12/30/14 09/23/21 History omeprazole 40 mg PO BID #180 tab-cap 02/03/16 09/23/21 History coenzyme Q10 [Co Q-10] 100 mg PO DAILY 30 Days #30 tab-cap 02/05/18 09/23/21 Rx mometasone 0.1 % topical ointment 1 applic TP DAILY PRN #45 gm 07/14/19 09/23/21 Rx atenolol 50 mg tablet 50 mg PO DAILY #90 tab-cap 06/15/21 09/23/21 Rx folic acid 1 mg tablet 1 mg PO DAILY #90 tab 06/15/21 09/23/21 Rx nifedipine 30 mg tablet,extended 30 mg PO DAILY #90 tab 06/15/21 09/23/21 Rx release spironolactone 50 mg tablet 50 mg PO QAM #90 tab 06/15/21 09/23/21 Rx Exam Narrative Exam Narrative: General: Patient appears older than stated age, morbidly obese and short stature. Affect flat with normal mood. Alert and oriented x3. In no acute distress. HEENT: Normocephalic, abrasion over bridge of nose, eyes with pupils equal and reactive to light symmetrically, extraocular intact and sclera anicteric. Oropharynx with moist Koza. Neck: Supple without JVD. Decreased range of motion with no chronic degenerative disc disease and spondylosis. Back: Kyphotic posture without CVA tenderness. Lungs: Clear to auscultation percussion. Heart: Regular rate and rhythm with no murmurs gallops appreciated. Breast: Exam deferred. Abdomen: Obese contour, soft nontender to palpation without palpable hepatosplenomegaly. Bowel sounds positive in all quadrants. Genitalia/rectal: Exam deferred. Extremities: Nonpitting edema both lower extremities with arthritic changes of the joint but fair range of motion. No clubbing or cyanosis. Skin: Normal color, warm and dry. Neuro: Cranial nerves II through XII grossly intact. No focalizing motor deficits. No tremor. Psych: Flattened affect with good eye contact, normal mood. No abnormal thought processes. Remote and recent memory grossly intact. Results Imaging Imaging Studies: Exam: XR Chest Exam date and time: 09/23/2021 5:38 PM Age: 61 years old Clinical indication: Other: Syncope TECHNIQUE: Imaging protocol: XR of the chest. Views: 1 view. COMPARISON: CT BRAIN NECK CTA 09/23/2021 8:32 PM FINDINGS: Lungs: Unremarkable. No consolidation. Pleural spaces: Unremarkable. No pleural effusion. No pneumothorax. Heart/Mediastinum: Heart appears enlarged. Bones/joints: Unremarkable. IMPRESSION: [id number] cardiac enlargement Dictated and Authenticated by: Grant Garcia MD. Exam: CT Angiography Head Without And With Contrast, Arteriography Exam date and time: 09/23/2021 5:38 PM Age: 61 years old Clinical indication: Other: Headache and syncope TECHNIQUE: Imaging protocol: Computed tomographic angiography of the head without and with contrast. Exam focused on the arteries. 3D rendering (Not supervised by radiologist): MIP and/or 3D reconstructed images were created by the technologist. Radiation optimization: All CT scans at this facility use at least one of these dose optimization techniques: automated exposure control; mA and/or kV adjustment per patient size (includes targeted exams where dose is matched to clinical indication); or iterative reconstruction. Contrast material: OMNIPAQUE 350; Contrast volume: 85 ml; Contrast route: INTRAVENOUS (IV); COMPARISON: No relevant prior studies available. FINDINGS: ANTERIOR CIRCULATION: Right internal carotid artery: Intracranial segment is patent with no evidence of hemodynamically significant stenosis. No aneurysm. Right middle cerebral artery: No occlusion or significant stenosis. No aneurysm. Right anterior cerebral artery: No occlusion or significant stenosis. No aneurysm. Left internal carotid artery: Intracranial segment is patent with no evidence of hemodynamically significant stenosis. No aneurysm. Left middle cerebral artery: No occlusion or significant stenosis. No aneurysm. Left anterior cerebral artery: No occlusion or significant stenosis. No aneurysm. POSTERIOR CIRCULATION: Right vertebral artery: No occlusion or significant stenosis. No aneurysm. Left vertebral artery: No occlusion or significant stenosis. No aneurysm. Basilar artery: No occlusion or significant stenosis. No aneurysm. Right posterior cerebral artery: No occlusion or significant stenosis. No aneurysm. Left posterior cerebral artery: No occlusion or significant stenosis. No aneurysm. HEAD: Brain: Nonspecific hypodensities of the periventricular and deep subcortical white matter, most likely secondary to chronic small vessel ischemic change. No intracranial hemorrhage or extra-axial fluid collection. No evidence of mass effect or midline shift. Crane-white matter differentiation is normal. Cerebral ventricles: Mild prominence of the ventricles and sulci, most likely attributed to parenchymal volume loss. Bones/joints: Unremarkable. No acute fracture. Paranasal sinuses: Visualized sinuses are normal. No fluid levels. Mastoid air cells: Visualized mastoids are normal. No mastoid effusion. Soft tissues: Unremarkable. IMPRESSION: 1. No intracranial arterial occlusion or significant stenosis. 2. No acute findings on non-contrast Head CT images. ASPECTS score 10. 3. Chronic findings, as above. PROCEDURE INFORMATION: Exam: CT Angiography Neck With Contrast Exam date and time: 09/23/2021 5:38 PM Age: 61 years old Clinical indication: Other: Headache and syncope TECHNIQUE: Imaging protocol: Computed tomography angiography of the neck with contrast. 3D rendering (Not supervised by radiologist): MIP and/or 3D reconstructed images were created by the technologist. Radiation optimization: All CT scans at this facility use at least one of these dose optimization techniques: automated exposure control; mA and/or kV adjustment per patient size (includes targeted exams where dose is matched to clinical indication); or iterative reconstruction. Contrast material: OMNIPAQUE 350; Contrast volume: 85 ml; Contrast route: INTRAVENOUS (IV); COMPARISON: No relevant prior studies available. FINDINGS: Right common carotid artery: No significant stenosis. No dissection or occlusion. Right internal carotid artery: Extracranial segment is patent with no significant stenosis (0% stenosis by NASCET criteria). No dissection or occlusion. Right external carotid artery: No occlusion or significant stenosis. Left common carotid artery: No significant stenosis. No dissection or occlusion. Left internal carotid artery: Extracranial segment is patent with no significant stenosis (0% stenosis by NASCET criteria). No dissection or occlusion. Left external carotid artery: No occlusion or significant stenosis. Right vertebral artery: No significant stenosis. No dissection or occlusion. Left vertebral artery: No significant stenosis. No dissection or occlusion. Soft tissues: Unremarkable. Bones/joints: No acute fracture. IMPRESSION: No occlusion or significant stenosis in the arteries of the neck. REFERENCES: NASCET CRITERIA. The degree of internal carotid artery stenosis is based on NASCET criteria. Normal is no stenosis. Mild is less than 50% stenosis. Moderate is 50-69% stenosis. Severe is 70% to 99% stenosis. Total occlusion is no detectable patent lumen. Dictated and Authenticated by: Jamin Dumont MD. Labs Result diagrams: 09/24/21 05:30 09/24/21 05:30 Labs: Laboratory Results - last 24 hr 09/23/21 09/23/21 09/23/21 18:15 18:15 18:15 WBC RBC Hgb Hct MCV MCH MCHC RDW Plt Count MPV Immature Gran % Neutrophils % Lymphocytes % Monocytes % Eosinophils % Basophils % Nucleated RBC % Absolute Neutrophils Absolute Lymphocytes Absolute Monocytes Absolute Eosinophils Absolute Basophils VBG Lactate 5.5 H* Sodium 139 Potassium 4.0 Chloride 102 Carbon Dioxide 20.5 L Anion Gap 16.5 H BUN 9 Creatinine 1.1 H Estimated GFR/1.73 m2 50.50 Glucose 109 H Calcium 9.5 Magnesium 1.7 L Total Bilirubin 0.4 AST 68 H ALT 45 Alkaline Phosphatase 104 Troponin I < 0.05 Total Protein 8.8 H Albumin 3.6 Urine Color Urine Clarity Urine pH Ur Specific [place] Urine Protein Urine Ketones Urine Blood Urine Nitrite Urine Bilirubin Urine Urobilinogen Ur Leukocyte Esterase Urine RBC Urine WBC Ur Epithelial Cells Urine Crystals Urine Bacteria Urine Casts Urine Mucus Ur Culture Indicated? Urine Glucose Ethyl Alcohol COVID-19 Source SARS-CoV-2 (PCR) 09/23/21 09/23/21 09/23/21 18:15 18:30 18:37 WBC 9.23 RBC 4.00 Hgb 14.0 Hct 41.0 MCV 102.5 H MCH 35.0 H MCHC 34.1 RDW 12.3 Plt Count 245 MPV 9.2 Immature Gran % 0.8 Neutrophils % 83.0 Lymphocytes % 10.9 Monocytes % 3.9 Eosinophils % 1.0 Basophils % 0.4 Nucleated RBC % 0 Absolute Neutrophils 7.66 H Absolute Lymphocytes 1.01 L Absolute Monocytes 0.36 Absolute Eosinophils 0.09 Absolute Basophils 0.04 VBG Lactate Sodium Potassium Chloride Carbon Dioxide Anion Gap BUN Creatinine Estimated GFR/1.73 m2 Glucose Calcium Magnesium Total Bilirubin AST ALT Alkaline Phosphatase Troponin I Total Protein Albumin Urine Color Yellow Urine Clarity Sl Cloudy Urine pH 5.5 Ur Specific [place] 1.015 Urine Protein Negative Urine Ketones Trace H Urine Blood Small H Urine Nitrite Negative Urine Bilirubin Negative Urine Urobilinogen 0.2 Ur Leukocyte Esterase Moderate H Urine RBC 3-5 H Urine WBC 20-50 H Ur Epithelial Cells Few Urine Crystals Negative Urine Bacteria Many Urine Casts Negative Urine Mucus Negative Ur Culture Indicated? Yes Urine Glucose Negative Ethyl Alcohol COVID-19 Source Nasal/Nares SARS-CoV-2 (PCR) Negative 09/23/21 09/23/21 18:40 23:05 WBC RBC Hgb Hct MCV MCH MCHC RDW Plt Count MPV Immature Gran % Neutrophils % Lymphocytes % Monocytes % Eosinophils % Basophils % Nucleated RBC % Absolute Neutrophils Absolute Lymphocytes Absolute Monocytes Absolute Eosinophils Absolute Basophils VBG Lactate 4.3 H* Sodium Potassium Chloride Carbon Dioxide Anion Gap BUN Creatinine Estimated GFR/1.73 m2 Glucose Calcium Magnesium Total Bilirubin AST ALT Alkaline Phosphatase Troponin I Total Protein Albumin Urine Color Urine Clarity Urine pH Ur Specific [place] Urine Protein Urine Ketones Urine Blood Urine Nitrite Urine Bilirubin Urine Urobilinogen Ur Leukocyte Esterase Urine RBC Urine WBC Ur Epithelial Cells Urine Crystals Urine Bacteria Urine Casts Urine Mucus Ur Culture Indicated? Urine Glucose Ethyl Alcohol 241.7 H COVID-19 Source SARS-CoV-2 (PCR) Last Vital Signs Temp 36.5 C 09/23/21 23:11 Pulse 88 09/23/21 23:11 Resp 23 09/23/21 23:11 BP 101/66 09/23/21 23:11 Pulse Ox 98 09/23/21 23:11 PAWSS Have you Been Recently Intoxicated or Drunk Within the Last 30 days?: No Have you Ever Experienced Previous Episodes of Alcohol Withdrawal?: No Have you ever Experienced Withdrawal Seizures?: No Have you ever Experienced Delirium Tremens(DT)s?: No Have you ever undergone Alcohol Rehabilitation Treatment (i.e, inpt ot outpatient treatment programs)?: No Have you ever Experienced Blackouts?: No Have you ever Combined Alcohol with other Downers within the last 90 days?: No Have you ever Combined Alcohol with any other Substance of Abuse during the last 90 days?: No Result: 0
[2021-09-23 23:58] LABS: NT-proBNP 123 pg/mL (<300)
[2021-09-24] VITALS (7 sets, daily range): BP systolic 100–120; BP diastolic 65–82; PULSE 70–104; RESP 18–20; TEMP 36.6–37; O2SAT 94–98
[2021-09-24 00:15] LABS: Troponin I < 0.05 ng/mL (<0.06)
[2021-09-24 05:45] LABS: Abs Immature Grans 0.03 10^3/uL (0.0-0.06); Absolute Basophil Count 0.04 10^3/uL (0.0-0.2); Absolute Eosinophil Count 0.06 10^3/uL (0.0-0.7); Absolute Lymphocyte Count 1.25 10^3/uL (1.2-3.4); Absolute Monocyte Count 0.55 10^3/uL (0.1-0.8); Absolute Neutrophil Count 5.09 10^3/uL (1.2-6.7); Basophils % 0.6; Eosinophils % 0.9; HCT 33.2 % (36.0-46.0); HGB 11.3 g/dL (11.2-15.7); Immature Grans % 0.4; Lymphocytes % 17.8; MCH 34.2 pg (27.0-33.0); MCV 100.6 fL (80-95); MPV 9.5 fL (8.0-11.0); Monocytes % 7.8; Neutrophils % 72.5; Nucleated RBC 0 %; Platelet Count 192 10^3/uL (130-400); RDW 12.7 % (11.7-14.6); RDW-SD 47.1 fL; WBC 7.02 10^3/uL (4.4-10.8)
[2021-09-24 06:46] LABS: BUN 9 mg/dL (7-18); CREATININE 1.1 mg/dL (0.55-1.02); Calcium 8.5 mg/dL (8.5-10.1); Glucose 81 mg/dL (74-106)
[2021-09-24 06:47] LABS: ALT 81 U/L (14-59); AST 34 U/L (15-37); Albumin 2.7 g/dL (3.4-5.0); Alkaline Phosphatase 81 U/L (46-116); Anion Gap 13.9 mmol/L (3-11); Bilirubin, Total 0.3 mg/dL (0.2-1.0); CO2 21.1 mmol/L (21.0-32.0); Chloride 108 mmol/L (98-107); Magnesium 1.5 mg/dL (1.8-2.4); Potassium 3.7 mmol/L (3.5-5.1); Sodium 143 mmol/L (136-145); Total Protein 6.8 g/dL (6.4-8.2); Troponin I < 0.05 ng/mL (<0.06)
[2021-09-24] MEDS: Aspirin 81 MG CHEW PO (08:03)
[2021-09-24] MEDS: Cyanocobalamin 500 MCG TAB PO (08:03)
[2021-09-24] MEDS: Cholecalciferol (Vitamin D3) 400 UNIT TAB PO (08:03)
[2021-09-24] MEDS: Folic Acid 1 MG TAB PO (08:04)
[2021-09-24] MEDS: Calcium Carbonate *TUMS* 500 MG CHEW 750 MG PO (08:04)
[2021-09-24] MEDS: Omeprazole 20 MG CAPCR 40 MG PO (08:04)
[2021-09-24] MEDS: Enoxaparin 40 MG/0.4 ML SYR SC (08:05)
[2021-09-24] MEDS: Atenolol 50 MG TAB PO (08:38)
--- NOTE | 2021-09-24 09:31 | PDOC.CMIN ---
- If Service Date Differs Date of service: 09/24/21 Time of Service: 09:31 Care Management Initial Assess REASON FOR HOSPITALIZATION:: Syncope, Lactic Acidosis, UTI. PAST MEDICAL HISTORY/PAST SURGICAL HISTORY:: Active Problem List: Sleep apnea (Acute), Psoriasis (Chronic), Folic acid deficiency (Acute), Spondylolisthesis at L5-S1 level (Acute), Pedal edema (Acute), Essential hypertension (Acute), Gastroesophageal reflux disease with esophagitis (Acute), Headache (Acute 09/26/04), Hyperlipidemia (Acute), and Pernicious anemia (Acute 09/26/06). Medical History: Non-toxic uninodular goiter - thyroid cyst-removed by Dr. Flores 1999. Surgical History: Cholecystectomy and Status post cholecystectomy. PREVIOUS FUNCTIONAL STATUS/SOCIAL/FAMILY SUPPORTS:: Bing lives in [place], [place], with her , Karthik. 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 She states her has had to care for their house, do the laundry, and cook for the past 2 years as she has been unable to. Her nephew, his and their children have tended to her flower garden over the summer months. Bing is independent with her ADLs at baseline. CURRENT FUNCTIONAL STATUS:: Bing is lying in bed when CM comes to meet with her. She is pleasant and easily engages in conversation. She states she is very brianne to have a supportive and understanding and talks about some of her struggles with health issues. ADVANCE DIRECTIVES:: On file; Karthik Bernal () and Katie Bernal (sister) are appointed as co-agents for Health Care. Has patient been provided with info about the portal/API?: Yes Did the patient sign up for the portal?: No (Patient declines.) CODE STATUS:: Full Code INSURANCE COVERAGE / FINANCIAL ISSUES:: [employer] and Financial Asst 57. CURRENT HOME/COMMUNITY SERVICES/EQUIPMENT:: No home/community services. Bing ambulates with a cane when she is outdoors. PRIMARY CARE PHYSICIAN:: Lisa Lowry, Ph.D., ANP ([facility]). POTENTIAL DISCHARGE NEEDS:: Follow up appointment with PCP and plan of care. PATIENT/FAMILY EDUCATION NEEDS:: Review discharge instructions including limitation and follow up plan of care; discuss Ask Me Three and self management. ANTICIPATED BARRIERS TO DISCHARGE:: No anticipated barriers to discharge at this time. TRANSPORTATION:: Via private vehicle with family. PLAN:: iBng will likely be discharged home with no services when medically cleared by provider. She will follow up with her PCP and plan of care as prescribed. Bing will be transported home via private vehicle by family when ready. CM will continue to follow.
[2021-09-24 10:07] LABS: Lactate 0.8 mmol/L (0.6-1.4)
[2021-09-24] MEDS: Normal Saline 500 ML 30 ML IV (11:18)
[2021-09-24] MEDS: MAGNESIUM SULFATE 4 GM/100 ML BAG IVPB (11:19)
[2021-09-24] MEDS: Normal Saline Flush 10 ML SYR IVP (11:23)
--- NOTE | 2021-09-24 13:55 | W.PM.DS.N ---
Date of service: 09/24/21 Time of Service: 11:00 DS: Diagnosis Discharge Diagnosis (1) Syncope: Start date: 09/24/21 Start time: 11:00 Status: Ruled-out Asessment and Plan: Fall, after speaking with patient this am, she was intoxicated and stated per her was having a large amount of pain, so instead of taking a muscle relaxer she decided to drink a large amount of alcohol, unknown consumption. She drank enough that even after a couple of hours and a nap she still reported to the ED with ethyl alcohol level of 241. Today she states, her witnessed her ambulating to the , tripping over her feet and hitting the ground, falling forward. This was the cause of her fall. Intoxication with mechanical fall. She tripped per . In setting of intoxication with ambulation and tripping over her feet, this explains her fall. Syncope r/o. No symptoms today. She was also dehydrated. She likely had quite a bit of alcohol will not admit to how much. At this time given history of events do not feel syncope work up is necessary given cause and effect of fall. If continues then she should have follow up She has been in NSR on telemetry therefore being discharged home. Follow up with PCP in 1 week (2) Lactic acid acidosis: Start date: 09/24/21 Start time: 11:00 Status: Acute Asessment and Plan: Today her lactate level has normalized. Afebrile, not on metformin. Likely d/t dehydration. level today 0.8 lactate (3) UTI (urinary tract infection): Start date: 09/24/21 Start time: 11:00 Status: Acute Asessment and Plan: No sx. Found on ua with positive leuk est, no nitrates. Will not treat at this time as she is asymptomatic. (4) HTN (hypertension): Start date: 09/24/21 Start time: 11:00 Status: Chronic Asessment and Plan: Continue home medications above discussed with Dr. Springer. Discharge Plan Disposition Patient Disposition: HOME Condition: Good Discharge Details Reason For Visit: Syncope,Lactic Acidosis,UTI Admit Date/Time: 09/23/21 23:00 Admit Provider: Jasvir Jorge Attending Provider: Jasvir Jorge Primary Care Provider: [facility] Hospital Course: 61 y.o female admitted to [facility] m/s in obs with concern for syncope however after speaking with patient today, it is clear that patient was intoxicated. She had drank an unknown amount of alcohol prior to admission due to neck pain. Patient then proceeded to lay down for nap, upon waking for nap was unsteady on feet and witnessed patient tripping over her own 2 feet going to the bathroom. She was still intoxicated upon arrival to the ED at 247. Syncope is unlikely given the nature of her fall and witnessed by her . She likely was intoxicated and unsteady causing her to fall. She stated she has not had an alcoholic beverage in over a month and instead of taking a muscle relaxer she decided to drink alcohol. I have a suspicion she tends to drink more than she lets on. She laid down to have a nap after drinking and woke up to ambulate to the , tripping over her feet per her causing her to fall; prompting her visit to the ED. On arrival she still had a considerably high ethyl level. She was kept overnight for syncopal work up; though after discussing the evening events with her this sounds more like an intoxicated event with mechanical fall. Her lactosis level was likely elevated due to dehydration. She was kept overnight for obs. Mag repleted with IV repletion. IV hydration and repeat lactosis level today 0.8. She feels well. At this time, i would not work up for syncope given whole picture. If this should happen again in setting of non alcohol I would then pursue further work up. Therefore she is being discharged home. F/u with PCP in 1-2 weeks and abstain from drinking alcohol. Home Meds and New Rx's Prescriptions: Continued mometasone 0.1 % ointment 1 applic TP DAILY PRN (Reason: skin irritation) Qty: 45 RF: 5 milk thistle 500 MG capsule 2 cap PO DAILY RF: 0 cyanocobalamin (vitamin B-12) [Vitamin B-12] 500 MCG tablet 1 tab PO DAILY RF: 0 calcium carbonate [Tums] 200 MG tablet,chewable 4 tab PO DAILY RF: 0 cholecalciferol (vitamin D3) [Vitamin D3] 400 UNIT tablet 1 tab PO DAILY RF: 0 aspirin [Aspirin Low-Strength] 81 MG tablet,chewable 81 mg PO DAILY RF: 0 omeprazole 40 MG capsule,delayed release(DR/EC) 40 mg PO BID Qty: 180 RF: 12 coenzyme Q10 [Co Q-10] 100 MG capsule 100 mg PO DAILY 30 Days Qty: 30 RF: 0 atenolol 50 mg tablet 50 mg PO DAILY Qty: 90 RF: 4 folic acid 1 mg tablet 1 mg PO DAILY Qty: 90 RF: 4 nifedipine 30 mg tablet extended release 30 mg PO DAILY Qty: 90 RF: 4 spironolactone 50 mg tablet 50 mg PO QAM Qty: 90 RF: 4 Discharge Instructions Instructions: Alcohol Intoxication (DC), Abuse of Alcohol (DC), Fall Prevention (DC) Additional Instructions: Abstain from alcohol Take muscle relaxers for pain, no alcohol If this does happen in setting of non alcohol circumstances you will need further work up. Your urinalysis did show a possible infection, however if you are not experiencing any sx you do not need an antibiotic. We will do a formal urine culture, if this does require an antibiotic we will call you in and let you know and call you one in. At this time due to knowing what the cause of your fall was, no further work up is necessary. Activity:: Activity as Tolerated Equipment/Supplies:: No Equipment Needed Diet:: Low Sodium Discharge Orders Discharge Orders: Discharge Order (Routine); Ordered 09/24/21 Ordered By: Tiana Vincent DS: Summary Time Spent with Patient providing and/or coordinating discharge services: Less than 30 minutes Status at Discharge Functional status at discharge: independent ambulation Overall status at discharge: patient is back to baseline Mental Status: mental status grossly normal Speech and Movement: speech and movement normal Mood: congruent mood Affect: normal affect Exam Const General: cooperative, comfortable and no acute distress Nutritional Appearance: obese Orientation: alert, awake and oriented x3 HENMT Head: normal to inspection, normocephalic and atraumatic General nose exam: external nose not normal (abrasion to outer nose) Eyes Eyelids: eyelids normal Pupils: PERRL EOM: EOM intact bilaterally Neck Neck: normal visual inspection and no JVD Lymphatic: no lymphadenopathy noted Resp Effort & Inspection: normal respiratory effort Auscultation: clear to auscultation bilaterally Cardio Jugular venous pressure: no JVD Rhythm: regular rhythm Heart Sounds: S1 normal GI Auscultation: normal bowel sounds General: No CVA tenderness and deferred Skin General skin exam: no rashes or lesions noted Neuro General: patient alert, patient awake and patient oriented x3 Cognition: normal cognition Speech: speech normal Gait: normal gait Extrem General: normal to inspection, full ROM and no clubbing, cyanosis or edema Psych Mental Status: mental status grossly normal Speech and Movement: speech and movement normal Mood: congruent mood Affect: normal affect DS: Data Vitals/I&O Vitals and I&O: Vital Signs Temperature 37 C 09/24/21 08:01 Temperature Source Tympanic 09/24/21 08:01 Pulse 94 H 09/24/21 08:01 Pulse Rhythm Regular 09/24/21 08:56 Pulse 94 H 09/23/21 20:00 Respiratory Rate 20 09/24/21 08:01 Respiratory Effort Non-Labored 09/24/21 08:56 Respiratory Depth Normal 09/24/21 08:56 Respiratory Pattern Irregular 09/24/21 08:56 Blood Pressure 120/82 09/24/21 08:01 Blood Pressure Mean 77 09/23/21 18:31 Pulse Oximetry 94 09/24/21 08:01 Oxygen Delivery Method Room Air 09/24/21 08:01 Oxygen Flow Rate 0 09/24/21 08:01 Pain Level 0 09/24/21 08:01 Intake & Output 09/23/21 09/24/21 09/24/21 23:59 11:59 23:59 Intake Total 100 / 100 Output Total 700 / 700 Balance -700 / -600 100 / -600 Weight 113.398 kg 110 kg Intake: Oral 100 / 100 Output: Urine 700 / 700 Other: Urine Color Straw Urine Appearance Clear Urine Odor Normal Comment per patient report Voiding Methods Toilet Data Completed and Pending Completed studies during hospitalization [Text1]: Exam(s) PROCEDURE INFORMATION: Exam: XR Chest Exam date and time: 09/23/2021 5:38 PM Age: 61 years old Clinical indication: Other: Syncope TECHNIQUE: Imaging protocol: XR of the chest. Views: 1 view. COMPARISON: CT BRAIN NECK CTA 09/23/2021 8:32 PM FINDINGS: Lungs: Unremarkable. No consolidation. Pleural spaces: Unremarkable. No pleural effusion. No pneumothorax. Heart/Mediastinum: Heart appears enlarged. Bones/joints: Unremarkable. IMPRESSION: [id number] cardiac enlargement Pending studies at discharge: Exam(s) PROCEDURE INFORMATION: Exam: XR Chest Exam date and time: 09/23/2021 5:38 PM Age: 61 years old Clinical indication: Other: Syncope TECHNIQUE: Imaging protocol: XR of the chest. Views: 1 view. COMPARISON: CT BRAIN NECK CTA 09/23/2021 8:32 PM FINDINGS: Lungs: Unremarkable. No consolidation. Pleural spaces: Unremarkable. No pleural effusion. No pneumothorax. Heart/Mediastinum: Heart appears enlarged. Bones/joints: Unremarkable. IMPRESSION: [id number] cardiac enlargement : 1960Age: 61 Exam(s) PROCEDURE INFORMATION: Exam: CT Angiography Head Without And With Contrast, Arteriography Exam date and time: 09/23/2021 5:38 PM Age: 61 years old Clinical indication: Other: Headache and syncope TECHNIQUE: Imaging protocol: Computed tomographic angiography of the head without and with contrast. Exam focused on the arteries. 3D rendering (Not supervised by radiologist): MIP and/or 3D reconstructed images were created by the technologist. Radiation optimization: All CT scans at this facility use at least one of these dose optimization techniques: automated exposure control; mA and/or kV adjustment per patient size (includes targeted exams where dose is matched to clinical indication); or iterative reconstruction. Contrast material: OMNIPAQUE 350; Contrast volume: 85 ml; Contrast route: INTRAVENOUS (IV); COMPARISON: No relevant prior studies available. FINDINGS: ANTERIOR CIRCULATION: Right internal carotid artery: Intracranial segment is patent with no evidence of hemodynamically significant stenosis. No aneurysm. Right middle cerebral artery: No occlusion or significant stenosis. No aneurysm. Right anterior cerebral artery: No occlusion or significant stenosis. No aneurysm. Left internal carotid artery: Intracranial segment is patent with no evidence of hemodynamically significant stenosis. No aneurysm. Left middle cerebral artery: No occlusion or significant stenosis. No aneurysm. Left anterior cerebral artery: No occlusion or significant stenosis. No aneurysm. POSTERIOR CIRCULATION: Right vertebral artery: No occlusion or significant stenosis. No aneurysm. Left vertebral artery: No occlusion or significant stenosis. No aneurysm. Basilar artery: No occlusion or significant stenosis. No aneurysm. Right posterior cerebral artery: No occlusion or significant stenosis. No aneurysm. Left posterior cerebral artery: No occlusion or significant stenosis. No aneurysm. HEAD: Brain: Nonspecific hypodensities of the periventricular and deep subcortical white matter, most likely secondary to chronic small vessel ischemic change. No intracranial hemorrhage or extra-axial fluid collection. No evidence of mass effect or midline shift. Crane-white matter differentiation is normal. Cerebral ventricles: Mild prominence of the ventricles and sulci, most likely attributed to parenchymal volume loss. Bones/joints: Unremarkable. No acute fracture. Paranasal sinuses: Visualized sinuses are normal. No fluid levels. Mastoid air cells: Visualized mastoids are normal. No mastoid effusion. Soft tissues: Unremarkable. IMPRESSION: 1. No intracranial arterial occlusion or significant stenosis. 2. No acute findings on non-contrast Head CT images. ASPECTS score 10. 3. Chronic findings, as above. : 1960Age: 61 Exam(s) PROCEDURE INFORMATION: Exam: CT Angiography Head Without And With Contrast, Arteriography Exam date and time: 09/23/2021 5:38 PM Age: 61 years old Clinical indication: Other: Headache and syncope TECHNIQUE: Imaging protocol: Computed tomographic angiography of the head without and with contrast. Exam focused on the arteries. 3D rendering (Not supervised by radiologist): MIP and/or 3D reconstructed images were created by the technologist. Radiation optimization: All CT scans at this facility use at least one of these dose optimization techniques: automated exposure control; mA and/or kV adjustment per patient size (includes targeted exams where dose is matched to clinical indication); or iterative reconstruction. Contrast material: OMNIPAQUE 350; Contrast volume: 85 ml; Contrast route: INTRAVENOUS (IV); COMPARISON: No relevant prior studies available. FINDINGS: ANTERIOR CIRCULATION: Right internal carotid artery: Intracranial segment is patent with no evidence of hemodynamically significant stenosis. No aneurysm. Right middle cerebral artery: No occlusion or significant stenosis. No aneurysm. Right anterior cerebral artery: No occlusion or significant stenosis. No aneurysm. Left internal carotid artery: Intracranial segment is patent with no evidence of hemodynamically significant stenosis. No aneurysm. Left middle cerebral artery: No occlusion or significant stenosis. No aneurysm. Left anterior cerebral artery: No occlusion or significant stenosis. No aneurysm. POSTERIOR CIRCULATION: Right vertebral artery: No occlusion or significant stenosis. No aneurysm. Left vertebral artery: No occlusion or significant stenosis. No aneurysm. Basilar artery: No occlusion or significant stenosis. No aneurysm. Right posterior cerebral artery: No occlusion or significant stenosis. No aneurysm. Left posterior cerebral artery: No occlusion or significant stenosis. No aneurysm. HEAD: Brain: Nonspecific hypodensities of the periventricular and deep subcortical white matter, most likely secondary to chronic small vessel ischemic change. No intracranial hemorrhage or extra-axial fluid collection. No evidence of mass effect or midline shift. Crane-white matter differentiation is normal. Cerebral ventricles: Mild prominence of the ventricles and sulci, most likely attributed to parenchymal volume loss. Bones/joints: Unremarkable. No acute fracture. Paranasal sinuses: Visualized sinuses are normal. No fluid levels. Mastoid air cells: Visualized mastoids are normal. No mastoid effusion. Soft tissues: Unremarkable. IMPRESSION: 1. No intracranial arterial occlusion or significant stenosis. 2. No acute findings on non-contrast Head CT images. ASPECTS score 10. 3. Chronic findings, as above. Labs on day of discharge: Labs from last 24 hours 09/24/21 09/24/21 09/24/21 10:00 05:30 05:30 WBC 7.02 RBC 3.30 L Hgb 11.3 D Hct 33.2 L MCV 100.6 H MCH 34.2 H MCHC 34.0 RDW 12.7 Plt Count 192 MPV 9.5 Immature Gran % 0.4 Neutrophils % 72.5 Lymphocytes % 17.8 Monocytes % 7.8 Eosinophils % 0.9 Basophils % 0.6 Nucleated RBC % 0 Absolute Neutrophils 5.09 Absolute Lymphocytes 1.25 Absolute Monocytes 0.55 Absolute Eosinophils 0.06 Absolute Basophils 0.04 VBG Lactate 0.8 Sodium 143 Potassium 3.7 Chloride 108 H Carbon Dioxide 21.1 Anion Gap 13.9 H BUN 9 Creatinine 1.1 H Estimated GFR/1.73 m2 50.50 Glucose 81 Calcium 8.5 Magnesium 1.5 L Total Bilirubin 0.3 AST 34 ALT 81 H Alkaline Phosphatase 81 Troponin I < 0.05 NT-Pro-B Natriuret Pep Total Protein 6.8 Albumin 2.7 L Urine Color Urine Clarity Urine pH Ur Specific Soldier Urine Protein Urine Ketones Urine Blood Urine Nitrite Urine Bilirubin Urine Urobilinogen Ur Leukocyte Esterase Urine RBC Urine WBC Ur Epithelial Cells Urine Crystals Urine Bacteria Urine Casts Urine Mucus Ur Culture Indicated? Urine Glucose Ethyl Alcohol COVID-19 Source SARS-CoV-2 (PCR) 09/23/21 09/23/21 09/23/21 23:05 23:05 23:05 WBC RBC Hgb Hct MCV MCH MCHC RDW Plt Count MPV Immature Gran % Neutrophils % Lymphocytes % Monocytes % Eosinophils % Basophils % Nucleated RBC % Absolute Neutrophils Absolute Lymphocytes Absolute Monocytes Absolute Eosinophils Absolute Basophils VBG Lactate 4.3 H* Sodium Potassium Chloride Carbon Dioxide Anion Gap BUN Creatinine Estimated GFR/1.73 m2 Glucose Calcium Magnesium Total Bilirubin AST ALT Alkaline Phosphatase Troponin I < 0.05 NT-Pro-B Natriuret Pep 123 Total Protein Albumin Urine Color Urine Clarity Urine pH Ur Specific Soldier Urine Protein Urine Ketones Urine Blood Urine Nitrite Urine Bilirubin Urine Urobilinogen Ur Leukocyte Esterase Urine RBC Urine WBC Ur Epithelial Cells Urine Crystals Urine Bacteria Urine Casts Urine Mucus Ur Culture Indicated? Urine Glucose Ethyl Alcohol COVID-19 Source SARS-CoV-2 (PCR) 09/23/21 09/23/21 09/23/21 18:40 18:37 18:30 WBC RBC Hgb Hct MCV MCH MCHC RDW Plt Count MPV Immature Gran % Neutrophils % Lymphocytes % Monocytes % Eosinophils % Basophils % Nucleated RBC % Absolute Neutrophils Absolute Lymphocytes Absolute Monocytes Absolute Eosinophils Absolute Basophils VBG Lactate Sodium Potassium Chloride Carbon Dioxide Anion Gap BUN Creatinine Estimated GFR/1.73 m2 Glucose Calcium Magnesium Total Bilirubin AST ALT Alkaline Phosphatase Troponin I NT-Pro-B Natriuret Pep Total Protein Albumin Urine Color Yellow Urine Clarity Sl Cloudy Urine pH 5.5 Ur Specific Soldier 1.015 Urine Protein Negative Urine Ketones Trace H Urine Blood Small H Urine Nitrite Negative Urine Bilirubin Negative Urine Urobilinogen 0.2 Ur Leukocyte Esterase Moderate H Urine RBC 3-5 H Urine WBC 20-50 H Ur Epithelial Cells Few Urine Crystals Negative Urine Bacteria Many Urine Casts Negative Urine Mucus Negative Ur Culture Indicated? Yes Urine Glucose Negative Ethyl Alcohol 241.7 H COVID-19 Source Nasal/Nares SARS-CoV-2 (PCR) Negative 09/23/21 09/23/21 09/23/21 18:15 18:15 18:15 WBC 9.23 RBC 4.00 Hgb 14.0 Hct 41.0 MCV 102.5 H MCH 35.0 H MCHC 34.1 RDW 12.3 Plt Count 245 MPV 9.2 Immature Gran % 0.8 Neutrophils % 83.0 Lymphocytes % 10.9 Monocytes % 3.9 Eosinophils % 1.0 Basophils % 0.4 Nucleated RBC % 0 Absolute Neutrophils 7.66 H Absolute Lymphocytes 1.01 L Absolute Monocytes 0.36 Absolute Eosinophils 0.09 Absolute Basophils 0.04 VBG Lactate 5.5 H* Sodium Potassium Chloride Carbon Dioxide Anion Gap BUN Creatinine Estimated GFR/1.73 m2 Glucose Calcium Magnesium 1.7 L Total Bilirubin AST ALT Alkaline Phosphatase Troponin I < 0.05 NT-Pro-B Natriuret Pep Total Protein Albumin Urine Color Urine Clarity Urine pH Ur Specific Soldier Urine Protein Urine Ketones Urine Blood Urine Nitrite Urine Bilirubin Urine Urobilinogen Ur Leukocyte Esterase Urine RBC Urine WBC Ur Epithelial Cells Urine Crystals Urine Bacteria Urine Casts Urine Mucus Ur Culture Indicated? Urine Glucose Ethyl Alcohol COVID-19 Source SARS-CoV-2 (PCR) 09/23/21 18:15 WBC RBC Hgb Hct MCV MCH MCHC RDW Plt Count MPV Immature Gran % Neutrophils % Lymphocytes % Monocytes % Eosinophils % Basophils % Nucleated RBC % Absolute Neutrophils Absolute Lymphocytes Absolute Monocytes Absolute Eosinophils Absolute Basophils VBG Lactate Sodium 139 Potassium 4.0 Chloride 102 Carbon Dioxide 20.5 L Anion Gap 16.5 H BUN 9 Creatinine 1.1 H Estimated GFR/1.73 m2 50.50 Glucose 109 H Calcium 9.5 Magnesium Total Bilirubin 0.4 AST 68 H ALT 45 Alkaline Phosphatase 104 Troponin I NT-Pro-B Natriuret Pep Total Protein 8.8 H Albumin 3.6 Urine Color Urine Clarity Urine pH Ur Specific Soldier Urine Protein Urine Ketones Urine Blood Urine Nitrite Urine Bilirubin Urine Urobilinogen Ur Leukocyte Esterase Urine RBC Urine WBC Ur Epithelial Cells Urine Crystals Urine Bacteria Urine Casts Urine Mucus Ur Culture Indicated? Urine Glucose Ethyl Alcohol COVID-19 Source SARS-CoV-2 (PCR) 09/24/21 08:18 Blood Blood Culture - Pending 09/23/21 18:40 Blood Blood Culture - Pending Preliminary micro results at discharge 09/23/21 18:30 Urine Culture - Preliminary Urine - Reflex from Ua Escherichia coli 09/24/21 08:18 Blood Culture - Pending Blood 09/23/21 18:40 Blood Culture - Pending Blood [facility] Active Problem List Alcohol intoxication (Acute) Syncope (Chronic) UTI (urinary tract infection) (Acute) Lactic acid acidosis (Acute) UTI (urinary tract infection) (Acute) HTN (hypertension) (Chronic) Sleep apnea (Acute) Psoriasis (Chronic) Folic acid deficiency (Acute) Spondylolisthesis at L5-S1 level (Acute) Pedal edema (Acute) Essential hypertension (Acute) Gastroesophageal reflux disease with esophagitis (Acute) Headache (Acute 09/26/04) Hyperlipidemia (Acute) Pernicious anemia (Acute 09/26/06) Medical History Non-toxic uninodular goiter thyroid cyst-removed by Dr. Flores 1999 Surgical History Cholecystectomy Status post cholecystectomy Family History Mother , age 48 Breast cancer Father , age 90 Stomach cancer Sister No problems noted. Brother No problems noted. Brother No problems noted. Brother No problems noted. Maternal Grandmother , in her 80s No problems noted. Paternal Grandmother , in her 80s No problems noted. Social History Smoking/Tobacco Use Status: Never Smoking risk assessment performed?: Yes Alcohol Intake: current Alcohol Intake frequency: 0-2 drinks per day Alcohol type: beer, wine and hard liquor Drug use: Never Caregiver/Support person: No Household members: spouse Housing: house Communication Needs: None Do you need help understanding health information?: Never Pets and animals: No Sexually active: No Do you think of yourself as: straight/heterosexual Current gender identity: female What is your relationship status?: How often do you talk on the phone with friends or family?: three or more times per week How often do you get together with friends or relatives?: once per week How often do you attend confucianism or adventist services?: 1-3 times per year Do you belong to any clubs or organized social groups?: yes Panel score (0-1 are the most socially isolated patients): 3 What type of physical activity do you participate in: none Jodee/Caodaism: Sabianist Special jodee needs: No Seatbelt use: always Drive intox 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
--- NOTE | 2021-09-24 14:12 | PDOC.CMDIS ---
- If Service Date Differs Date of service: 09/24/21 Time of Service: 14:12 LACE Index Scoring Tool - Questions: Length of Stay (in days): 1 Acuity (Admit via E.D.?): Yes E.D. Visits: 1 - Answers: Total Score: 5 Risk of Readmission: Low Risk Care Management Discharge Reason for Hospitalization: Syncope, Lactic Acidosis, UTI. Discharge Plan: Bing is discharged home with no services. She will follow up with her PCP and plan of care as prescribed. Her is transporting her home via private vehicle. Patient/Family Education Needs: Review of discharge instructions, limitations, follow up plan of care, Ask Me Three, and self management.
== END 2021-09-24 16:43 | disposition home or self-care (01) ==
LOC: ER 23:43 → MS 23:54
PROVIDERS: Nurse Practitioner Family; Admitting Provider Family Medicine; Emergency Provider Physician Assistant; PCP Nurse Practitioner; Visit Provider Family Medicine
DX: R55 Syncope and collapse (principal); N30.00 Acute cystitis without hematuria; E87.2 Acidosis; F10.129 Alcohol abuse with intoxication, unspecified; Y90.8 Blood alcohol level of 240 mg/100 ml or more; R60.0 Localized edema; W18.39XA Other fall on same level, initial encounter; G47.30 Sleep apnea, unspecified; E78.5 Hyperlipidemia, unspecified; M43.10 Spondylolisthesis, site unspecified; I10 Essential (primary) hypertension; K21.00 Gastro-esophageal reflux disease with esophagitis, without bleeding; D51.0 Vitamin B12 deficiency anemia due to intrinsic factor deficiency; R51.9 Headache, unspecified; E53.8 Deficiency of other specified B group vitamins; L40.9 Psoriasis, unspecified; E66.9 Obesity, unspecified; Z68.41 Body mass index [BMI] 40.0-44.9, adult; R00.0 Tachycardia, unspecified; Z20.822 Contact with and (suspected) exposure to COVID-19
CPT/HCPCS: 36415; 36416; 70496; 70498; 80053; 82962; 87040; 87077; 87635; 93005; 96361; 96365; 99291; J1650; 71045; 80320; 81003; 81015; 83605; 83735; 83880; 84484; 85025; 87086; 87186; 93010; 99217; 99220; G0378; J3475; J3490; Q9967

== ENCOUNTER 2022-10-12 09:04 | Outpatient (CLI) | payer OTHER, SELFPAY ==
[2022-10-12 10:29] LABS: Abs Immature Grans 0.03 10^3/uL (0.0-0.06); Absolute Basophil Count 0.04 10^3/uL (0.0-0.2); Absolute Eosinophil Count 0.11 10^3/uL (0.0-0.7); Absolute Lymphocyte Count 0.93 10^3/uL (1.2-3.4); Absolute Monocyte Count 0.37 10^3/uL (0.1-0.8); Absolute Neutrophil Count 6.07 10^3/uL (1.2-6.7); Basophils % 0.5; Eosinophils % 1.5; HCT 38.3 % (36.0-46.0); Immature Grans % 0.4; Lymphocytes % 12.3; MCH 34.9 pg (27.0-33.0); MCHC 33.9 % (32.0-36.0); MCV 103 fL (80-95); MPV 9.5 fL (8.0-11.0); Monocytes % 4.9; Neutrophils % 80.4; Platelet Count 193 10^3/uL (130-400); RBC 3.72 10^6/uL (3.93-5.22); RDW 13.6 % (11.7-14.6); RDW-SD 52.1 fL; WBC 7.55 10^3/uL (4.4-10.8)
[2022-10-12 11:02] LABS: ALT 45 U/L (14-59); AST 80 U/L (15-37); Albumin 3.4 g/dL (3.4-5.0); Alkaline Phosphatase 97 U/L (46-116); Anion Gap 10.8 mmol/L (3-11); BUN 9 mg/dL (7-18); Bilirubin, Total 0.7 mg/dL (0.2-1.0); CO2 27.2 mmol/L (21.0-32.0); CREATININE 1.2 mg/dL (0.55-1.02); Calculated LDL 128 mg/dL (<100); Chloride 99 mmol/L (98-107); Cholesterol 226 mg/dL (<200); Estimated GFR 51.18 (mL/min/1.73m2); Folate 19.1 ng/mL (8.6-20.0); Glucose 112 mg/dL (74-106); HDL Cholesterol 82 mg/dL (40-60); Potassium 4.5 mmol/L (3.5-5.1); Sodium 137 mmol/L (136-145); Total Protein 8.2 g/dL (6.4-8.2); Triglyceride 83 mg/dL (<150); Vitamin B12 1735 pg/mL (193-986)
== END 2022-10-12 09:05 | disposition home or self-care (01) ==
LOC: LOS 09:05
PROVIDERS: PCP Nurse Practitioner Family; Referring Provider Nurse Practitioner Family; Visit Provider Nurse Practitioner Family
DX: Z00.00 Encounter for general adult medical examination without abnormal findings (principal); R60.0 Localized edema; I10 Essential (primary) hypertension; K21.9 Gastro-esophageal reflux disease without esophagitis; D51.0 Vitamin B12 deficiency anemia due to intrinsic factor deficiency
CPT/HCPCS: 36415; 80053; 80061; 82607; 82746; 85025

== ENCOUNTER 2022-11-02 01:18 | Outpatient (CLI) | payer OTHER, SELFPAY ==
--- NOTE | 2022-11-02 08:30 | DI.MAMMO_ITS ---
Exam(s) MAMMO SCREENING EXAM: MAMMO SCREENING CLINICAL HISTORY: screening,Z12.39 TECHNIQUE: Mammograms were interpreted according to the usual protocol including computer analysis w [employer] CAD system, tomosynthesis and C-view imaging. COMPARISON: 2014 through 2020 FINDINGS: The breasts are composed of scattered fibroglandular densities, Breast Density category B. No suspicious masses or suspicious microcalcifications are seen. No skin thickening or abnormal axillary lymph nodes are seen. There has been no significant change from prior exams. IMPRESSION: BI-RADS Category 1, Negative mammogram Yearly screening mammography is recommended. Breast Density - Category B, scattered fibroglandular densities. A negative radiographic report should not delay biopsy if a dominant or clinically suspicious mass is present. Up to ten percent of cancers are not identified on mammography. A negative report may reinforce clinical impression. Adenosis and dense breasts may obscure an underlying neoplasm. False positive reports average 6 to 10%. Patient will receive a letter notifying them of these results.
== END 2022-11-02 01:38 ==
LOC: DI 01:18
PROVIDERS: PCP Nurse Practitioner Family; Visit Provider Nurse Practitioner Family
DX: Z12.31 Encounter for screening mammogram for malignant neoplasm of breast (principal)
CPT/HCPCS: 77063; 77067

== ENCOUNTER 2023-01-01 09:57 | Observation (INO) | payer OTHER, SELFPAY ==
[2023-01-01] VITALS (20 sets, daily range): BP systolic 101–115; BP diastolic 49–76; PULSE 66–88; RESP 13–24; TEMP 36.7; O2SAT 98
--- NOTE | 2023-01-01 10:00 | DI.CT_ITS ---
Exam(s) CT HEAD WO EXAM: CT HEAD WO CLINICAL HISTORY: progressive lower ext weakness. TECHNIQUE: Imaging Protocol: Axial computed tomography images with coronal and sagittal reformatted images were created and reviewed COMPARISON: CT CT BRAIN NECK CTA from 09/23/2021 FINDINGS: There are no skull fractures. There is no fluid in the visualized paranasal sinuses. There is no evidence of intracranial hemorrhage, mass effect, or shift of midline structures. There are no extra-axial fluid collections. The ventricles are not enlarged or shifted and there is no blo od within the ventricular system nor within the basal cisterns. No significant findings in the cerebellar hemispheres nor within the cristopher, midbrain, and thalami. Ho wever, there does appear to be some periventricular hypodensity increased from previous and possibly related to ischemic changes. IMPRESSION: White matter hypodensity both periventricular and around the internal capsules in basal ganglia. Rec ommend follow-up MRI. Discussed with ER physician RADIATION DOSE DELIVERED: 809.98mGy.cm Total DLP DATA REPOSITORY: All CT scans at this facility are submitted to the National Radiology Data Registry (NRDR) Dose Index Registry (DIR) with the [employer] ([employer]). RADIATION OPTIMIZATION: All CT scans at this facility use at least one of these dose optimization te chniques: automated exposure control; mA and/or kV adjustment per patient size (includes targeted exa ms where dose is matched to clinical indication); or iterative reconstruction.
--- NOTE | 2023-01-01 10:00 | DI.CT_ITS ---
Exam(s) CT LUMBAR SPINE WO EXAM: CT LUMBAR SPINE WO CLINICAL HISTORY: progressive, lower ext weakness. TECHNIQUE: Imaging Protocol: Axial computed tomography images with coronal and sagittal reformatted images were created and reviewed COMPARISON: CR XR LUMBAR SPINE AP, LAT from 09/27/2020 FINDINGS: Bones: Posterior fusion hardware again evident at L4-5-S1 levels bilateral intrapedicular screws at these levels and relationship of the screws to the superior endplates is satisfactory at all levels a ppear.. There are no lytic osseous lesions evident. INDIVIDUAL LEVELS: T12-L1:No disc herniation nor canal stenosis. Facet joints unremarkable. No foraminal stenosis. L1-2: Symmetrical annular bulging. No distinct focal disc herniation. Central canal dimensions low er normal. Facet joints unremarkable. No foraminal stenosis. L2-3: Symmetrical annular bulging. No focal disc herniation. Mild central canal stenosis. No sign ificant foraminal stenosis. No facet arthropathy. L3-4: This is 1 level above the fusion. Somewhat obscured by beam hardening artifact from the screw s at L4. There is annular bulging. There is moderate spinal canal stenosis. Could not truly assess for disc herniations here due to beam hardening artifact. There is, however, no prominent foraminal stenosis. L4-5: Bilateral intrapedicular screws within L4 pedicles. Beam hardening artifact prevents visualiz ation of the spinal canal. Cannot assess disc at this level. No obvious foraminal stenosis. L5-S1: Advanced disc space narrowing. Anterior listhesis L5 upon S1 by approximately 11 millimeters . Increased AP diameter of the spinal canal due to the anterior slippage. Vertical foraminal stenos is bilaterally with impingement of exiting nerve roots. The visualized sacroiliac joints and sacrum appear unremarkable. PARASPINAL SOFT TISSUES: Visualized paraspinal tissues appear unremarkable. IMPRESSION: 1. Multilevel hardware as described above, similar to prior studies. 2. Anterolisthesis L5 upon S1 again noted, unchanged. There is bilateral vertical foraminal stenosis at this level which is causing impingement of the exiting nerve roots bilaterally at this level. 3. Although it is difficult to visualize the spinal canal at the levels of the hardware, there does appear to be an element of central canal stenosis above the fusion levels, most prominent at L3-4 lev el where there appears to be moderate central spinal canal stenosis. No fractures. No evidence of osteomyelitis. No paraspinal fluid collections. Discussed with ER physician RADIATION DOSE DELIVERED: 1,011.61mGy.cm Total DLP DATA REPOSITORY: All CT scans at this facility are submitted to the National Radiology Data Registry (NRDR) Dose Index Registry (DIR) with the [employer] ([employer]). RADIATION OPTIMIZATION: All CT scans at this facility use at least one of these dose optimization te chniques: automated exposure control; mA and/or kV adjustment per patient size (includes targeted exa ms where dose is matched to clinical indication); or iterative reconstruction.
--- NOTE | 2023-01-01 10:19 | W.ED.GENAD ---
Discharge Plan Disposition Patient Disposition: Admit to [facility] Condition: Stable Discharge Details Chief Complaint: GenMedical Clinical Impression: Polyneuropathy, Ataxia Primary Care Provider: Philip Romero ED Provider: Luis Styles Home Meds and New Rx's Prescriptions: No Action mometasone 0.1 % ointment 1 applic TP DAILY PRN (Reason: skin irritation) Qty: 45 5RF benzonatate 100 mg capsule 100 - 200 mg PO TID PRN (Reason: cough) Qty: 30 0RF Rx Instructions: Take 1-2 capsules by mouth three times a day as needed for cough milk thistle 500 MG capsule 2 cap PO DAILY cyanocobalamin (vitamin B-12) [Vitamin B-12] 500 MCG tablet 1 tab PO DAILY calcium carbonate [Tums] 200 MG tablet,chewable 4 tab PO DAILY cholecalciferol (vitamin D3) [Vitamin D3] 400 UNIT tablet 1 tab PO DAILY aspirin [Aspirin Low-Strength] 81 MG tablet,chewable 81 mg PO DAILY omeprazole 40 MG capsule,delayed release(DR/EC) 40 mg PO BID Qty: 180 coenzyme Q10 [Co Q-10] 100 MG capsule 100 mg PO DAILY 30 Days Qty: 30 0RF folic acid 1 mg tablet 1 mg PO DAILY Qty: 90 4RF atenolol 50 mg tablet 50 mg PO DAILY Qty: 90 4RF spironolactone 50 mg tablet 50 mg PO QAM Qty: 90 4RF nifedipine 30 mg tablet extended release 30 mg PO DAILY Qty: 90 4RF Medical Decision Making 62-year-old female history of folic acid deficiency, lumbar spinal surgery, hypertension hyperlipidemia, presents with progressive weakness paresthesias to bilateral lower extremities and paresthesias to hands, no headache no nausea no vomiting no chest pain or shortness of breath. Has now started using a walker at home due to instability. Patient is neurologically intact cranial nerves II through XII intact, 5-5 strength upper and lower extremities however patient does feel uncomfortable on her feet, no truncal ataxia noted. Will attempt to walk patient after initial evaluation. Consider peripheral neuropathy potentially related to diabetes versus vitamin deficiency was also consider peripheral polyneuropathy related to remote spinal surgery lower suspicion for spinal epidural abscess or bulging disc, lower suspicion for CVA or TIA, but also consider myositis however lower component of pain, lower suspicion for MS or muscular dystrophy given age history and physical.. No evidence of infection at this time. We will obtain screening labs imaging of lower spine and head. Will empirically administer thiamine and folate given history and symptoms. Fluids anti-inflammatory. Disposition likely home with neurology follow-up 13: 12 patient resting comfortably no acute distress. I attempted to ambulate patient she is extremely unsteady on her feet she describes decreased sensation in bilateral lower extremities and needs to use her eyes to see where her feet are going to maintain proper proprioception, spinal stenosis and foraminal narrowing seen at prior lumbar sacral surgical site, periventricular white matter and other localized white matter lesions seen on the brain CT. Will obtain MRI brain and MRI spine. Patient will unlikely be able to be discharged home today given severely limited gait as she would be a large fall risk. Will need likely rehabilitation and possible neurologic/orthopedic evaluation pending imaging 18: 14 given level of ataxia/weakness/paresthesias patient is high risk for fall if discharged, periventricular white matter changes likely age-related/microvascular ischemia per radiology however cannot exclude demyelinating condition, must also consider progressive spinal stenosis/formal stenosis; have added Lyme panel given initial presentation of polyneuropathy. Have started empiric doxycycline at the request of hospitalist team will discontinue if Lyme is negative. Patient be admitted for further evaluation, and possible placement for PT/OT HPI General Date/Time Provider Initiated Documentation: 01/01/23 10:06. HPI Narrative: 62-year-old female history of hypertension, hyperlipidemia, prior folic acid deficiency, L5-S1 spinal surgery unclear what procedure remotely, presents with progressive paresthesias and weakness specifically in her lower extremities also including her bilateral hands, has gone to the point where she does have difficulty ambulating has been using a walker at home. Related Data Home Medications Medication Instructions Recorded Confirmed calcium carbonate 200 mg calcium 4 tab PO DAILY 02/10/13 01/01/23 (500 mg) chewable tablet (Tums) cholecalciferol (vitamin D3) 10 1 tab PO DAILY 02/10/13 01/01/23 mcg (400 unit) tablet (Vitamin D3) cyanocobalamin (vitamin B-12) 500 1 tab PO DAILY 02/10/13 01/01/23 mcg tablet (Vitamin B-12) milk thistle 500 mg capsule 2 cap PO DAILY 02/10/13 01/01/23 aspirin 81 mg chewable tablet 81 mg PO DAILY 12/30/14 01/01/23 (Aspirin Low-Strength) omeprazole 40 mg capsule,delayed 40 mg PO BID #180 tab-caps 02/03/16 01/01/23 release coenzyme Q10 100 mg capsule (Co 100 mg PO DAILY 30 days #30 02/05/18 01/01/23 Q-10) tab-caps mometasone 0.1 % topical ointment 1 applic topical DAILY PRN skin 07/14/19 01/01/23 irritation #45 grams atenolol 50 mg tablet 50 mg PO DAILY #90 tab-caps 09/10/22 01/01/23 folic acid 1 mg tablet 1 mg PO DAILY #90 tabs 09/10/22 01/01/23 nifedipine 30 mg tablet,extended 30 mg PO DAILY #90 tabs 09/10/22 01/01/23 release spironolactone 50 mg tablet 50 mg PO QAM #90 tabs 09/10/22 01/01/23 benzonatate 100 mg capsule 100 - 200 mg PO TID PRN cough #30 10/12/22 01/01/23 caps Previous Rx's Medication Instructions Recorded coenzyme Q10 100 mg capsule (Co 100 mg PO DAILY 30 days #30 02/05/18 Q-10) tab-caps mometasone 0.1 % topical ointment 1 applic topical DAILY PRN skin 07/14/19 irritation #45 grams atenolol 50 mg tablet 50 mg PO DAILY #90 tab-caps 09/10/22 folic acid 1 mg tablet 1 mg PO DAILY #90 tabs 09/10/22 nifedipine 30 mg tablet,extended 30 mg PO DAILY #90 tabs 09/10/22 release spironolactone 50 mg tablet 50 mg PO QAM #90 tabs 09/10/22 benzonatate 100 mg capsule 100 - 200 mg PO TID PRN cough #30 10/12/22 caps Allergies Allergy/AdvReac Type Severity Reaction Status Date / Time oxycodone Allergy Intermediate Unverified 01/01/23 10:11 sucralfate Allergy Intermediate Itching Unverified 01/01/23 10:11 furosemide Allergy Mild Unverified 01/01/23 10:11 hydrochlorothiazide Allergy Mild Unverified 01/01/23 10:11 influenza A (H5N1) virus AdvReac Unverified 01/01/23 10:11 vaccine mo General Stated Complaint: GenMedical MAURICIO: 3 Review of Systems Narrative: Review of Systems Constitutional: negative Eyes: negative ENT: negative Cardiovascular: negative Respiratory: negative Gastrointestinal: negative : negative Musculoskeletal: negative Skin: negative Neurologic: Leg weakness, paresthesias Psych: negative PFSH All Active Problems (Updated 01/01/23 @ 18:16 by Luis Styles MD) Pernicious anemia (Acute 09/26/06) pern Hyperlipidemia (Acute) Headache (Acute 09/26/04) w/vision problems; MRI-demyelination areas vs. sm. vessel disease;MRI 09/01-? 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 [facility] Folic acid deficiency (Acute) Psoriasis (Chronic) steroids topical as needed Sleep apnea (Acute) CPAP since 2018 Skin lesion (Acute) Rhinosinusitis (Acute) Generalized weakness (Acute) Frequent falls (Acute) Polyneuropathy (Acute) Ataxia (Acute) Medical History Alcohol intoxication HTN (hypertension) Lactic acid acidosis Non-toxic uninodular goiter thyroid cyst-removed by Dr. Flores 1999 Syncope UTI (urinary tract infection) UTI (urinary tract infection) Surgical History Cholecystectomy Status post cholecystectomy Family History Mother , age 48 Breast cancer Father , age 90 Stomach cancer Sister No problems noted. Brother No problems noted. Brother No problems noted. Brother No problems noted. Maternal Grandmother , in her 80s No problems noted. Paternal Grandmother , in her 80s No problems noted. Other Syncope Social History Smoking/Tobacco Use Status: Never Smoking risk assessment performed?: Yes Alcohol Intake: current Alcohol Intake frequency: 0-2 drinks per day Alcohol type: beer, wine and hard liquor Drug use: Never Caregiver/Support person: No Household members: spouse Housing: house Communication Needs: None Do you need help understanding health information?: Never Pets and animals: No Sexually active: No Do you think of yourself as: straight/heterosexual Current gender identity: female What is your relationship status?: How often do you talk on the phone with friends or family?: three or more times per week How often do you get together with friends or relatives?: once per week How often do you attend hindu or baptism services?: 1-3 times per year Do you belong to any clubs or organized social groups?: yes Panel score (0-1 are the most socially isolated patients): 3 What type of physical activity do you participate in: none Jodee/Cheondoism: Mormon Special jodee needs: No Seatbelt use: always Drive intox 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 Do you feel safe at home: Yes Do you feel safe in your relationship?: Yes Course Vital Signs Vital signs: Vital Signs Temperature 36.7 C 01/01/23 10:07 Pulse 74 01/01/23 10:07 Respiratory Rate 20 01/01/23 10:07 Blood Pressure 109/64 01/01/23 10:07 Pulse Oximetry 98 01/01/23 10:07 Temperature 36.7 C 01/01/23 10:07 Temperature Source Oral 01/01/23 10:07 Pulse 74 01/01/23 10:07 Respiratory Rate 20 01/01/23 10:07 Blood Pressure 109/64 01/01/23 10:07 Blood Pressure Position Supine 01/01/23 10:07 Pulse Oximetry 98 01/01/23 10:07 Oxygen Delivery Method Room Air 01/01/23 10:07 Oxygen Flow Rate 0 01/01/23 10:07 Pain Level 0 01/01/23 10:07
[2023-01-01] MEDS: Dexamethasone 10 MG/ML VIAL IVP (10:40)
[2023-01-01] MEDS: Folic Acid 1 MG TAB PO (10:41)
[2023-01-01] MEDS: Normal Saline 500 ML 1000 ML IV (10:41)
[2023-01-01 10:47] LABS: Abs Immature Grans 0.03 10^3/uL (0.0-0.06); Absolute Basophil Count 0.03 10^3/uL (0.0-0.2); Absolute Eosinophil Count 0.03 10^3/uL (0.0-0.7); Absolute Lymphocyte Count 0.57 10^3/uL (1.2-3.4); Absolute Monocyte Count 0.24 10^3/uL (0.1-0.8); Absolute Neutrophil Count 5.17 10^3/uL (1.2-6.7); Basophils % 0.5; Eosinophils % 0.5; HCT 33.8 % (36.0-46.0); HGB 11.2 g/dL (11.2-15.7); Immature Grans % 0.5; Lymphocytes % 9.4; MCH 33.5 pg (27.0-33.0); MCHC 33.1 % (32.0-36.0); MCV 101 fL (80-95); MPV 9.4 fL (8.0-11.0); Neutrophils % 85.1; Platelet Count 124 10^3/uL (130-400); RBC 3.34 10^6/uL (3.93-5.22); RDW 12.3 % (11.7-14.6); RDW-SD 45.9 fL; WBC 6.07 10^3/uL (4.4-10.8)
[2023-01-01] MEDS: THIAMINE 100 MG in Normal Saline 100 ML 200 MG IVPB (10:48)
[2023-01-01 11:17] LABS: ALT 26 U/L (14-59); AST 29 U/L (15-37); Albumin 2.8 g/dL (3.4-5.0); Alkaline Phosphatase 95 U/L (46-116); Anion Gap 8.6 mmol/L (3-11); BUN 19 mg/dL (7-18); Bilirubin, Total 0.6 mg/dL (0.2-1.0); CO2 27.4 mmol/L (21.0-32.0); CREATININE 1.2 mg/dL (0.55-1.02); Calcium 9.5 mg/dL (8.5-10.1); Chloride 101 mmol/L (98-107); Estimated GFR 51.18 (mL/min/1.73m2); Folate 18.3 ng/mL (8.6-20.0); Glucose 98 mg/dL (74-106); Potassium 4.4 mmol/L (3.5-5.1); Sodium 137 mmol/L (136-145); Total Protein 7.2 g/dL (6.4-8.2)
--- NOTE | 2023-01-01 13:00 | DI.MRI_ITS ---
Exam(s) MR LUMBAR SPINE WO EXAM: MR LUMBAR SPINE WO CLINICAL HISTORY: ataxic gait, legs weak and numb. TECHNIQUE: Multiplanar multisequence MRI of the Lumbar spine was performed. COMPARISON: MR MR LUMBAR SPINE WO from 03/10/2020 CR XR LUMBAR SPINE AP, LAT from 09/27/2020 FINDINGS: There has been interval multilevel fusion surgery since the study of February 2020 with posterior fusion h ardware at L4, L5, and S1 levels with posterior fusion rods and bilateral intrapedicular screws at th hilary levels. The position of the screws is satisfactory relative to the superior endplates at each le dayanara. No evidence of discitis nor osteomyelitis nor abnormal fluid collections. Conus medullaris is at normal level. There is no evidence of conus mass nor subjacent clumping of in trathecal nerve roots to suggest arachnoiditis. The distal thecal sac appears unremarkable.There is no evidence of Tarlov intrasacral cysts nor other significant findings within the sacral canal Bones:There are no fractures nor ominous osseous lesions in the lumbar vertebral bodies and visualize d sacrum. Amount of anterolisthesis of L5 upon S1 is unchanged from preoperative study and advanced disc space narrowing at this level is again noted (see below). With respect to the individual levels... T12-L1: Unremarkable L1-2: Again noted is a central subligamentous disc herniation at this level which significantly inden ts the thecal sac. Size of this disc herniation is slightly decreased from previous. This is centra l subligamentous, extends posteriorly 3 millimeters to indent the thecal sac and is 1 cm wide. The d isc herniation extends slightly less cephalad and caudal when compared to the prior study. No new ad ditional disc herniations at this level. No foraminal stenosis evident at this level L2-3: .Mild decreased disc height, relatively symmetrical. Mild annular bulging without a significant focal disc herniation. Central canal dimensions are lower normal. No significant foraminal stenosis on either side. No prominent facet arthropathy. L3-4: This is 1 level above the fusion. There has been no significant height loss of the disc space. There is broad annular bulging noted which has increased from the pre operative images. Results in mild-moderate central canal stenosis. There is no significant foraminal stenosis on either side at this level. L4-5: Preserved disc height. Linear signal abnormality in the posterior disc space possibly related to the surgery but there does not appear to be a new disc herniation at this level. Small central bettencourt bligamentous annular bulge again noted. Central canal dimensions are lower are normal. There is no foraminal stenosis at this level. L5-S1: Advanced disc space narrowing again noted. Anterolisthesis L5 upon S1 is unchanged, with appr oximately 9 millimeters anterior listhesis again evident. There is increased AP diameter of the cent ral canal again noted as typical for anterolisthesis. There is vertical foraminal stenosis again not ed bilaterally with the exiting nerve roots bilaterally impinged between the overlying pedicles and t he subjacent pseudo herniation of the annulus. Soft tissues: paraspinal soft tissues appear unremarkable. IMPRESSION: 1. Compared to the prior MRI scan of 03/10/2020 there has been interval tri level fusion surgery L4-5 -S1. No evidence of hardware loosening, discitis, osteomyelitis, nor epidural abscess. No paraspina l abscess. 2. At the L3-4 level which is 1 level above the fusion there has been new onset increased annular bul ging which results in an element of mild moderate central stenosis, without a distinct disc herniatio n. There is no foraminal stenosis on either side at this level. 3. L5-S1 level there is again noted 9 millimeters anterolisthesis L5 upon S1 and advanced disc space narrowing. Although the AP dimensions of the canal are increased, the anterior recesses are carried forward and there is again noted vertical foraminal stenosis bilaterally with impingement of the exit ing nerve roots bilaterally at this level between the overlying L5 pedicles and the subjacent pseudo herniation of the annulus (which was also previously present in February 2020). DATA REPOSITORY:
--- NOTE | 2023-01-01 13:00 | DI.MRI_ITS ---
Exam(s) MR BRAIN WO EXAM: MR BRAIN WO CLINICAL HISTORY: ataxic gait, lower ext numb and weak TECHNIQUE: Multiplanar multisequence MRI of the brain was performed. COMPARISON: No exams were available for comparison FINDINGS: CEREBRAL PARENCHYMA: There is no evidence of intracranial hemorrhage, mass effect, or shift of midline structures. There are no extra-axial fluid collections. Ventricles are not enlarged or shifted. There is no significant focal signal abnormality in the cerebellar hemispheres nor within the cristopher, m idbrain, and thalami. There is abundant bilateral FLAIR bright foci of signal abnormality in the Liliana in supra ventricular white matter, not associated with hemorrhage nor surrounding edema nor restricted diffusion. Probabl y related to chronic ischemic changes. There is no significant focal signal abnormality evident on diffusion imaging to suggest acute ischem ic event. SWI: No evidence of microhemorrhages. PITUITARY GLAND: No mass nor parasellar abnormality. No obvious abnormality in the cavernous sinuses. FLOW VOIDS: The expected flow void are noted. No evidence of obvious aneurysm nor obvious vascular ma lformation. PARANASAL SINUSES: The visualized paranasal sinuses appear unremarkable. No obvious finding ORBITS: No obvious findings. IMPRESSION: There are multiple foci of Liliana and supra ventricular signal abnormality most probably consistent wit h chronic small vessel disease. Cannot exclude demyelinating disease and inflammatory causes. Never theless, there is no restricted diffusion to suggest acute ischemic event. Called by myself to ER physician DATA REPOSITORY:
[2023-01-01] MEDS: Doxycycline Hyclate 100 MG CAP PO (19:36)
[2023-01-01 20:55] LABS: Source Nasal/Nares
[2023-01-01 21:28] LABS: COVID-19 PCR Negative (Negative)
--- NOTE | 2023-01-01 22:06 | W.PM.HP.N ---
Date of service: 01/01/23 Time of Service: 22:06 Assessment and Plan Assessment and plan (1) Generalized weakness: Start date: 01/01/23 Status: Acute Assessment and plan: Patient is complaining of generalized weakness which appears to be worse distally in both upper and lower extremities though she does have adequate movement against resistance with grasp and with dorsiflexion of great toe. She cannot stand and is unsafe with self ambulation at this time. She will be admitted for PT and OT evaluation and neurological consultation. Her imaging may reveal a demyelinating disease and further studies including an LP may be needed with neurology consulted. She appears to be stable with this process slow but progressive. Differential diagnosis does include Guillain-Alanis? syndrome though not a classic presentation. She is on doxycycline orally possibility of Lyme disease with tickborne disease panel sent to the lab. She is a full code. (2) Ataxia: Start date: 01/01/23 Status: Acute Assessment and plan: Patient has some discoordination with her weakness and imaging is not clear as to etiology other than demyelinating disease. Observation with neurology consultation as planned. LP may be necessary. (3) Polyneuropathy: Status: Acute Assessment and plan: Recent onset over the last months to weeks with patient not being diabetic but overweight. This could be associated with spinal disease with degenerative disc disease status post surgery of the lumbar region but no imaging of the cervical spine was performed. Further imaging with MRI of the neck may be entertained after neurology consultation with guidance from the specialist. Because of the progressive and slow process being bilateral and starting by patient's history and the distal aspects of both extremities this appears to be more of a central or metabolic/inflammatory issue. (4) Spinal stenosis of lumbar region: Status: Chronic Assessment and plan: Mild by imaging with previous surgical intervention for lumbar degenerative disc disease and radicular symptoms. Reviewed with neurology in consultation. History of Present Illness History of Present Illness Chief Complaint: Upper and lower extremity numbness with progressive weakness Narrative: This is 62-year-old lady who presented to the ED with progressive numbness with paresthesias of her upper and lower extremities and then weakness which began distally and her lower extremities mostly but also her upper extremities. She would have difficulty standing and upon presentation was using a walker at home but was very unstable and afraid that she could not be left alone with her working. She does have a history of having adverse effects to immunizations with transient blindness after a flu shot 2 years ago and she is avoided the COVID-vaccine though she has had COVID. She states that the symptoms have been over months and weeks but the weakness is more recent over the last week. This is when she was beginning to have difficulty ambulating at home and did not feel safe. In the ED she was found to have some element of spinal stenosis on MRI with some foraminal narrowing but nothing dramatic status post surgery and her MRI of the brain did show some ischemic white matter disease or possible inflammatory demyelinating disease. Her description of her weakness appearing to progress from her feet slowly upward has some elements of Guillain-Alanis? but she did have some movement in her lower extremities. She has not been seen by neurology recently. A tick panel was sent out and the patient was started on doxycycline for the possibility of Lyme disease in the differential diagnosis. [place] Alanis? syndrome also needs to be considered as mentioned. Patient appears to be stable at this time and things are moving slowly. She has had no fever or rashes. She denies any incontinence. She does take multiple vitamins including B12 and B12 levels pending. Patient will be admitted because of inability to be alone and ambulate and will need physical therapy and Occupational Therapy to review safety. She also needs to see neurology to discuss further investigations to make sure this is not a progressive neurological disease which is not clear at this time. She is a full code. Review of Systems Narrative: 13 point review of systems negative for difficulty swallowing or respiratory complaints. She has no GI complaints. The patient is overweight this been a consequence of her progressive arthritic disease and back problems having been thin and actively running in the past. 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 She does have chronic musculoskeletal complaints with her degenerative disc disease. As stated she has no incontinence of urine or stool. Otherwise review unrevealing or stable. PFSH All Active Problems (Updated 01/02/23 @ 00:47 by Jasvir Jorge) Spinal stenosis of lumbar region (Chronic) Pernicious anemia (Acute 09/26/06) pern Hyperlipidemia (Acute) Headache (Acute 09/26/04) w/vision problems; MRI-demyelination areas vs. sm. vessel disease;MRI 09/01-? 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 [facility] [place] Folic acid deficiency (Acute) Psoriasis (Chronic) steroids topical as needed Sleep apnea (Acute) CPAP since 2018 Skin lesion (Acute) Rhinosinusitis (Acute) Generalized weakness (Acute) Frequent falls (Acute) Polyneuropathy (Acute) Ataxia (Acute) Medical History Alcohol intoxication HTN (hypertension) Lactic acid acidosis Non-toxic uninodular goiter thyroid cyst-removed by Dr. Flores 1999 Syncope UTI (urinary tract infection) UTI (urinary tract infection) Surgical History Cholecystectomy Status post cholecystectomy Family History Mother , age 48 Breast cancer Father , age 90 Stomach cancer Sister No problems noted. Brother No problems noted. Brother No problems noted. Brother No problems noted. Maternal Grandmother , in her 80s No problems noted. Paternal Grandmother , in her 80s No problems noted. Other Syncope Social History Smoking/Tobacco Use Status: Never Smoking risk assessment performed?: Yes Alcohol Intake: current Alcohol Intake frequency: 0-2 drinks per day Alcohol type: beer, wine and hard liquor Drug use: Never Caregiver/Support person: No Household members: spouse Housing: house Communication Needs: None Do you need help understanding health information?: Never Pets and animals: No Sexually active: No Do you think of yourself as: straight/heterosexual Current gender identity: female What is your relationship status?: How often do you talk on the phone with friends or family?: three or more times per week How often do you get together with friends or relatives?: once per week How often do you attend sikh or anabaptism services?: 1-3 times per year Do you belong to any clubs or organized social groups?: yes Panel score (0-1 are the most socially isolated patients): 3 What type of physical activity do you participate in: none Jodee/Worship: Religious Special jodee needs: No Seatbelt use: always Drive intox 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 medical driver: No Do you feel safe at home: Yes Do you feel safe in your relationship?: Yes Meds Allergies and Home Medications Allergies Allergy/AdvReac Type Severity Reaction Status Date / Time oxycodone Allergy Intermediate Unverified 01/01/23 10:11 sucralfate Allergy Intermediate Itching Unverified 01/01/23 10:11 furosemide Allergy Mild Unverified 01/01/23 10:11 hydrochlorothiazide Allergy Mild Unverified 01/01/23 10:11 influenza A (H5N1) virus AdvReac Unverified 01/01/23 10:11 vaccine mo Home Medications Medication Instructions Recorded Confirmed Type calcium carbonate 200 mg calcium 4 tab PO DAILY 02/10/13 01/01/23 History (500 mg) chewable tablet (Tums) cholecalciferol (vitamin D3) 10 1 tab PO DAILY 02/10/13 01/01/23 History mcg (400 unit) tablet (Vitamin D3) cyanocobalamin (vitamin B-12) 500 1 tab PO DAILY 02/10/13 01/01/23 History mcg tablet (Vitamin B-12) milk thistle 500 mg capsule 2 cap PO DAILY 02/10/13 01/01/23 History aspirin 81 mg chewable tablet 81 mg PO DAILY 12/30/14 01/01/23 History (Aspirin Low-Strength) omeprazole 40 mg capsule,delayed 40 mg PO BID #180 tab-caps 02/03/16 01/01/23 History release coenzyme Q10 100 mg capsule (Co 100 mg PO DAILY 30 days #30 02/05/18 01/01/23 Rx Q-10) tab-caps mometasone 0.1 % topical ointment 1 applic topical DAILY PRN skin 07/14/19 01/01/23 Rx irritation #45 grams atenolol 50 mg tablet 50 mg PO DAILY #90 tab-caps 09/10/22 01/01/23 Rx folic acid 1 mg tablet 1 mg PO DAILY #90 tabs 09/10/22 01/01/23 Rx nifedipine 30 mg tablet,extended 30 mg PO DAILY #90 tabs 11/14/22 03/07/23 Rx release spironolactone 50 mg tablet 50 mg PO QAM #90 tabs 09/10/22 01/01/23 Rx benzonatate 100 mg capsule 100 - 200 mg PO TID PRN cough #30 10/12/22 01/01/23 Rx caps Exam Narrative Exam Narrative: General: Patient is moderately obese, appears older than stated age, alert and oriented x3 with flattened affect and good eye contact. She is in no acute distress. HEENT: Normocephalic, eyes with pupils equal reactive light symmetrically, extraocular movement intact and sclera anicteric. Oropharynx with moist mucosa. Neck: Supple without JVD. Back: Stooped posture without CVA tenderness. Decreased range of motion lower back with loss of lordotic curve. Lungs: Fair aeration clear to oscillation percussion. Breast: Exam deferred. Heart: Regular rate and rhythm with no murmurs gallops appreciated Abdomen: Obese contour, soft nontender to palpation with no palpable hepatosplenomegaly. Bowel sounds positive in all quadrants. Genitalia/rectal: Exam deferred. Extremities: Without clubbing, cyanosis or grossly pitting edema with patient having nonpitting edema of both legs. Skin: Normal color, warm and dry. Neuro: Cranial nerves II through XII gross intact. Motor with decreased strength over upper and lower extremities but able to dorsiflex feet and great toe against resistance though she finds it difficult to stand with some ataxia and decreased proprioception with patient not aware of her extremities such as missing her mouth when she attempts to drink a glass of water. This involves upper and lower extremities. No Babinski's. No tremor. (Full neurological exam hopefully to be accomplished by neurology with consultation in the morning). Psych: Flattened affect with depressed mood though there is some variability in her affect. Good eye contact. She appears cautious in conversation. No abnormal thought processes. Remote and recent memory intact. Results Imaging Imaging Studies: EXAM: ? MR BRAIN WO CLINICAL HISTORY:? ataxic gait, lower ext numb and weak TECHNIQUE:? Multiplanar multisequence MRI of the brain was performed. COMPARISON:? No exams were available for comparison FINDINGS: CEREBRAL PARENCHYMA: There is no evidence of intracranial hemorrhage, mass effect, or shift of midline structures.? There are no extra-axial fluid collections.? Ventricles are not enlarged or shifted. There is no significant focal signal abnormality in the cerebellar hemispheres nor within the cristopher, midbrain, and thalami. There is abundant bilateral FLAIR bright foci of signal abnormality in the Liliana in supra ventricular white matter, not associated with hemorrhage nor surrounding edema nor restricted diffusion.? Probably related to chronic ischemic changes. There is no significant focal signal abnormality evident on diffusion imaging to suggest acute ischemic event. SWI: No evidence of microhemorrhages. PITUITARY GLAND: No mass nor parasellar abnormality. No obvious abnormality in the cavernous sinuses. FLOW VOIDS: The expected flow void are noted. No evidence of obvious aneurysm nor obvious vascular malformation. PARANASAL SINUSES: The visualized paranasal sinuses appear unremarkable. No obvious finding ORBITS: No obvious findings. IMPRESSION: There are multiple foci of Liliana and supra ventricular signal abnormality most probably consistent with chronic small vessel disease.? Cannot exclude demyelinating disease and inflammatory causes.? Nevertheless, there is no restricted diffusion to suggest acute ischemic event. EXAM:? MR LUMBAR SPINE WO CLINICAL HISTORY: ? ataxic gait, legs weak and numb.? TECHNIQUE:? Multiplanar multisequence MRI of the Lumbar spine was performed. COMPARISON:? MR MR LUMBAR SPINE WO from 03/10/2020 CR XR LUMBAR SPINE AP, LAT from 09/27/2020 FINDINGS: There has been interval multilevel fusion surgery since the study of February 2020 with posterior fusion hardware at L4, L5, and S1 levels with posterior fusion rods and bilateral intrapedicular screws at these levels.? The position of the screws is satisfactory relative to the superior endplates at each level.? No evidence of discitis nor osteomyelitis nor abnormal fluid collections. Conus medullaris is at normal level.? There is no evidence of conus mass nor subjacent clumping of intrathecal nerve roots to suggest arachnoiditis.? The distal thecal sac appears unremarkable.There is no evidence of Tarlov intrasacral cysts nor other significant findings within the sacral canal Bones:There are no fractures nor ominous osseous lesions in the lumbar vertebral bodies and visualized sacrum.? Amount of anterolisthesis of L5 upon S1 is unchanged from preoperative study and advanced disc space narrowing at this level is again noted (see below). With respect to the individual levels... T12-L1: Unremarkable L1-2: Again noted is a central subligamentous disc herniation at this level which significantly indents the thecal sac.? Size of this disc herniation is slightly decreased from previous.? This is central subligamentous, extends posteriorly 3 millimeters to indent the thecal sac and is 1 cm wide.? The disc herniation extends slightly less cephalad and caudal when compared to the prior study.? No new additional disc herniations at this level.? No foraminal stenosis evident at this level L2-3: .Mild decreased disc height, relatively symmetrical. Mild annular bulging without a significant focal disc herniation.? Central canal dimensions are lower normal. No significant foraminal stenosis on either side.? No prominent facet arthropathy. L3-4: This is 1 level above the fusion.? There has been no significant height loss of the disc space.? There is broad annular bulging noted which has increased from the pre operative images.? Results in mild-moderate central canal stenosis.? There is no significant foraminal stenosis on either side at this level. L4-5: Preserved disc height.? Linear signal abnormality in the posterior disc space possibly related to the surgery but there does not appear to be a new disc herniation at this level.? Small central subligamentous annular bulge again noted.? Central canal dimensions are lower are normal.? There is no foraminal stenosis at this level.? L5-S1: Advanced disc space narrowing again noted.? Anterolisthesis L5 upon S1 is unchanged, with approximately 9 millimeters anterior listhesis again evident.? There is increased AP diameter of the central canal again noted as typical for anterolisthesis.? There is vertical foraminal stenosis again noted bilaterally with the exiting nerve roots bilaterally impinged between the overlying pedicles and the subjacent pseudo herniation of the annulus.? Soft tissues:? paraspinal soft tissues appear unremarkable. IMPRESSION: 1. Compared to the prior MRI scan of 03/10/2020 there has been interval tri level fusion surgery L4-5-S1.? No evidence of hardware loosening, discitis, osteomyelitis, nor epidural abscess.? No paraspinal abscess. 2. At the L3-4 level which is 1 level above the fusion there has been new onset increased annular bulging which results in an element of mild moderate central stenosis, without a distinct disc herniation.? There is no foraminal stenosis on either side at this level. 3. L5-S1 level there is again noted 9 millimeters anterolisthesis L5 upon S1 and advanced disc space narrowing.? Although the AP dimensions of the canal are increased, the anterior recesses are carried forward and there is again noted vertical foraminal stenosis bilaterally with impingement of the exiting nerve roots bilaterally at this level between the overlying L5 pedicles and the subjacent pseudo herniation of the annulus (which was also previously present in February 2020). EXAM: ? CT LUMBAR SPINE WO CLINICAL HISTORY:? progressive, lower ext weakness. ? TECHNIQUE:? Imaging Protocol: Axial computed tomography images with coronal and sagittal reformatted images were created and reviewed COMPARISON:? CR XR LUMBAR SPINE AP, LAT from 09/27/2020? FINDINGS: Bones:? Posterior fusion hardware again evident at L4-5-S1 levels bilateral intrapedicular screws at these levels and relationship of the screws to the superior endplates is satisfactory at all levels appear..? There are no lytic osseous lesions evident. INDIVIDUAL LEVELS: T12-L1:No disc herniation nor canal stenosis. Facet joints unremarkable.? No foraminal stenosis. L1-2:? Symmetrical annular bulging.? No distinct focal disc herniation.? Central canal dimensions lower normal.? Facet joints unremarkable.? No foraminal stenosis. L2-3:? Symmetrical annular bulging.? No focal disc herniation.? Mild central canal stenosis.? No significant foraminal stenosis.? No facet arthropathy.? L3-4:? This is 1 level above the fusion.? Somewhat obscured by beam hardening artifact from the screws at L4.? There is annular bulging.? There is moderate spinal canal stenosis.? Could not truly assess for disc herniations here due to beam hardening artifact.? There is, however, no prominent foraminal stenosis. L4-5:? Bilateral intrapedicular screws within L4 pedicles.? Beam hardening artifact prevents visualization of the spinal canal.? Cannot assess disc at this level.? No obvious foraminal stenosis.? L5-S1:? Advanced disc space narrowing.? Anterior listhesis L5 upon S1 by approximately 11 millimeters.? Increased AP diameter of the spinal canal due to the anterior slippage.? Vertical foraminal stenosis bilaterally with impingement of exiting nerve roots.? The visualized sacroiliac joints and sacrum appear unremarkable. PARASPINAL SOFT TISSUES: Visualized paraspinal tissues appear unremarkable. IMPRESSION: 1. Multilevel hardware as described above, similar to prior studies. 2. Anterolisthesis L5 upon S1 again noted, unchanged.? There is bilateral vertical foraminal stenosis at this level which is causing impingement of the exiting nerve roots bilaterally at this level. 3.? Although it is difficult to visualize the spinal canal at the levels of the hardware, there does appear to be an element of central canal stenosis above the fusion levels, most prominent at L3-4 level where there appears to be moderate central spinal canal stenosis. No fractures.? No evidence of osteomyelitis.? No paraspinal fluid collections. Labs 01/01/23 10:40 01/01/23 10:40 Labs: Laboratory Results - last 24 hr 01/01/23 01/01/23 01/01/23 10:40 10:40 20:50 WBC 6.07 RBC 3.34 L Hgb 11.2 Hct 33.8 L MCV 101 H MCH 33.5 H MCHC 33.1 RDW 12.3 Plt Count 124 L MPV 9.4 Immature Gran % 0.5 Neutrophils % 85.1 Lymphocytes % 9.4 Monocytes % 4.0 Eosinophils % 0.5 Basophils % 0.5 Nucleated RBC % 0.0 Absolute Neutrophils 5.17 Absolute Lymphocytes 0.57 L Absolute Monocytes 0.24 Absolute Eosinophils 0.03 Absolute Basophils 0.03 Sodium 137 Potassium 4.4 Chloride 101 Carbon Dioxide 27.4 Anion Gap 8.6 BUN 19 H Creatinine 1.2 H Est GFR (CKD-EPI 2020) 51.18 Glucose 98 Calcium 9.5 Total Bilirubin 0.6 AST 29 ALT 26 Alkaline Phosphatase 95 Total Protein 7.2 Albumin 2.8 L Folate 18.3 COVID-19 Source Nasal/Nares SARS-CoV-2 (PCR) Negative Last Vital Signs Temp 36.7 C 01/01/23 10:07 Pulse 79 01/01/23 19:34 Resp 17 01/01/23 11:30 BP 115/72 01/01/23 19:34 Pulse Ox 98 01/01/23 10:07 Time Spent Time spent with Patient: >75 minutes Time was spent: preparing to see the patient(eg.review tests), obtaining and/or reviewing separately otained hiistory, ordering medications,tests, procedures, indepentently interpreting results, counseling the patient and care coordination
[2023-01-01] MEDS: Omeprazole 20 MG CAPCR 40 MG PO (23:30)
[2023-01-01] MEDS: Calcium Carbonate *TUMS* 500 MG CHEW 4000 MG PO (23:31)
[2023-01-02] VITALS (185 sets, daily range): BP systolic 100–128; BP diastolic 59–93; PULSE 60–158; RESP 10–24; TEMP 36.2–36.9; O2SAT 93–98
[2023-01-02 05:54] LABS: ESR 53 mm/hr (0-30)
[2023-01-02 05:57] LABS: HCT 31.1 % (36.0-46.0); HGB 10.3 g/dL (11.2-15.7); MCH 33.4 pg (27.0-33.0); MCHC 33.1 % (32.0-36.0); MCV 101 fL (80-95); MPV 9.3 fL (8.0-11.0); Platelet Count 140 10^3/uL (130-400); RBC 3.08 10^6/uL (3.93-5.22); RDW 12.1 % (11.7-14.6); RDW-SD 44.8 fL; WBC 7.33 10^3/uL (4.4-10.8)
[2023-01-02 06:05] LABS: C-Reactive Protein 3.12 mg/dL (0.0-0.3)
[2023-01-02 06:14] LABS: ALT 24 U/L (14-59); AST 22 U/L (15-37); Albumin 2.5 g/dL (3.4-5.0); Alkaline Phosphatase 84 U/L (46-116); Anion Gap 11.4 mmol/L (3-11); BUN 23 mg/dL (7-18); Bilirubin, Total 0.5 mg/dL (0.2-1.0); CO2 24.6 mmol/L (21.0-32.0); CREATININE 1.1 mg/dL (0.55-1.02); Calcium 9.2 mg/dL (8.5-10.1); Chloride 105 mmol/L (98-107); Estimated GFR 56.81 (mL/min/1.73m2); Glucose 92 mg/dL (74-106); Magnesium 1.6 mg/dL (1.8-2.4); Potassium 4.5 mmol/L (3.5-5.1); Sodium 141 mmol/L (136-145); Total Protein 6.5 g/dL (6.4-8.2)
[2023-01-02 06:17] LABS: TSH (W/Ref FT4) 1.18 uIU/mL (0.36-3.74)
--- NOTE | 2023-01-02 06:39 | NUR.NOTE ---
Addendum entered by Esthela Frye RN 01/02/23 06:40: @2230- Pt assisted to bedside commode. She requires 2 person assist and struggles to bear weight. Original Note: Nursing Note:
--- NOTE | 2023-01-02 08:24 | INITIAL_ITS ---
- If Service Date Differs Date of service: 01/02/23 Time of Service: 08:24 Care Management Initial Assess REASON FOR HOSPITALIZATION:: Polyneuropathy, Ataxia PAST MEDICAL HISTORY/PAST SURGICAL HISTORY:: Medical History . Alcohol intoxication. HTN (hypertension). Lactic acid acidosis. Non-toxic uninodular goiter. thyroid cyst-removed by Dr. Flores 1999. Syncope. UTI (urinary tract infection). UTI (urinary tract infection). Surgical History . Cholecystectomy. Status post cholecystectomy PREVIOUS FUNCTIONAL STATUS/SOCIAL/FAMILY SUPPORTS:: Resides in [place] with , Karthik. Sent to ED by [facility] for weakness, numbness in legs and hands over last month. CURRENT FUNCTIONAL STATUS:: Per Provider: Patient will be admitted because of inability to be alone and ambulate and will need physical therapy and Occupational Therapy to review safety. She also needs to see neurology to discuss further investigations to make sure this is not a progressive neurological disease which is not clear at this time. ADVANCE DIRECTIVES:: On file, Karthik as agent. Has patient been provided with info about the portal/API?: No Did the patient sign up for the portal?: No CODE STATUS:: Full Code INSURANCE COVERAGE / FINANCIAL ISSUES:: [employer]. Financial Asst 57 PRIMARY CARE PHYSICIAN:: Philip Parker POTENTIAL DISCHARGE NEEDS:: PT evaluations, neurology, work-up to determine cause of weakness. PATIENT/FAMILY EDUCATION NEEDS:: Review of discharge instructions, community based services. ANTICIPATED BARRIERS TO DISCHARGE:: Ataxia TRANSPORTATION:: TBD by mobility and disposition. PLAN:: Bing will be evaluated for increased services and have a work up of symptoms. She remains in the ED awaiting bed availability to admit to the Med/Surg floor. CM continues to follow.
[2023-01-02 08:27] LABS: Lab Add On Test DONE
[2023-01-02] MEDS: NIFEdipine-CR 30 MG TABCR PO (08:45)
[2023-01-02] MEDS: Cholecalciferol (Vitamin D3) 400 UNIT TAB PO (08:46)
[2023-01-02] MEDS: Atenolol 50 MG TAB PO (08:46)
[2023-01-02] MEDS: Spironolactone 50 MG TAB PO (08:47)
[2023-01-02] MEDS: Enoxaparin 40 MG/0.4 ML SYR SC (08:47)
[2023-01-02] MEDS: Cyanocobalamin 500 MCG TAB PO (08:50)
[2023-01-02] MEDS: Aspirin 81 MG CHEW PO (08:55)
[2023-01-02] MEDS: Doxycycline Hyclate 100 MG CAP PO ×2 (08:55→19:50)
[2023-01-02] MEDS: Folic Acid 1 MG TAB PO (08:55)
--- NOTE | 2023-01-02 11:08 | PT.INIE ---
Date of service: 01/02/23 Time of Service: 10:25 PT Notes Visit Reasons: [facility] Inpatient Initial Evaluation Date: 01/02/2023 Referring Doctor: Jasvir Jorge MD PT Orders: PT CONSULT: Limited ability Precautions: Fall. Standard. Activity as tolerated. Patient Profile/Admitting Diagnosis: Bing is a 62-year-old R-hand dominant female who presented to the ED on 01/01/2023 due to generalized weakness, difficulty with walking, worsening pain and tingling in B UE and LE worse in the hands and the feet. Patient is admitted for further assessment and monitoring of generalized weakness, ataxia, polyneuropathy, and spinal stenosis of lumbar region. MRI of cervical spine: Degenerative disc changes at C6-7 causing mild narrowing of the AP dimension of the central canal and mild bilateral neural foraminal narrowing.. Cord signal normal. MRI of lumbar spine: 1. Compared to the prior MRI scan of 03/10/2020 there has been interval tri level fusion surgery L4-5-S1.? No evidence of hardware loosening, discitis, osteomyelitis, nor epidural abscess.? No paraspinal abscess. 2. At the L3-4 level which is 1 level above the fusion there has been new onset increased annular bulging which results in an element of mild moderate central stenosis, without a distinct disc herniation.? There is no foraminal stenosis on either side at this level. 3. L5-S1 level there is again noted 9 millimeters anterolisthesis L5 upon S1 and advanced disc space narrowing.? Although the AP dimensions of the canal are increased, the anterior recesses are carried forward and there is again noted vertical foraminal stenosis bilaterally with impingement of the exiting nerve roots bilaterally at this level between the overlying L5 pedicles and the subjacent pseudo herniation of the annulus (which was also previously present in February 2020). MRI of Brain: There are multiple foci of Liliana and supra ventricular signal abnormality most probably consistent with chronic small vessel disease.? Cannot exclude demyelinating disease and inflammatory causes.? Nevertheless, there is no restricted diffusion to suggest acute ischemic event. CT of Lumbar spine: 1. Multilevel hardware as described above, similar to prior studies. 2. Anterolisthesis L5 upon S1 again noted, unchanged.? There is bilateral vertical foraminal stenosis at this level which is causing impingement of the exiting nerve roots bilaterally at this level. 3.? Although it is difficult to visualize the spinal canal at the levels of the hardware, there does appear to be an element of central canal stenosis above the fusion levels, most prominent at L3-4 level where there appears to be moderate central spinal canal stenosis. No fractures.? No evidence of osteomyelitis.? No paraspinal fluid collections. PMHX: All Active Problems?(Updated 01/02/23 @ 00:47 by Jasvir Jorge) Spinal stenosis of lumbar region (Chronic) Pernicious anemia (Acute 09/26/06) Hyperlipidemia (Acute) Headache (Acute 09/26/04) w/vision problems; MRI-demyelination areas vs. sm. vessel disease;MRI 09/01-? 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 DHMCFolic acid deficiency (Acute) Psoriasis (Chronic) steroids topical as needed Sleep apnea (Acute) CPAP since 2018Skin lesion (Acute) Rhinosinusitis (Acute) Generalized weakness (Acute) Frequent falls (Acute) Polyneuropathy (Acute) Ataxia (Acute) Medical History? Alcohol intoxication HTN (hypertension) Lactic acid acidosis Non-toxic uninodular goiter thyroid cyst-removed by Dr. Flores 1999 Syncope UTI (urinary tract infection) UTI (urinary tract infection) Surgical History? Cholecystectomy Status post cholecystectomy Social History/Home Situation: Lives with in a priavte home with 2 steps to enter with rails on B sides. works during the day. Patient has needed the use of the canes or walker in the past several days due to increasing weakness and difficulty with walking. 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 Equipment Owned/DME: FWW, [facility] Subjective: Patient reports worsening tingling and pain in B UE and LE worse in the hands and the feet. Pain is shooting, starting from her hands/feet and then radiating to her arms /thighs on B sides. She states that her grasp on both hands has declined and has limited her ability to safely hold glasses and mugs. She states that her pain in B hands and feet goes up to 6-7/10 with weight bearing using the walker. She reports falling yesterday while she was transferring from the truck to her PCP's office at [facility] with her a family member. She feels that her swelling in both legs have worsened. She reports that her symptoms started about a year or so ago after her back surgery and have gotten worse these past couple of weeks. She denies headache and chest pain but did indicate some back pain with sit<>stand movement transition. Per ED nurse Jackie, patient looked shaky and unstable during the bed to bedside commode transfer they did earlier. Objective: General Observation: Seated on bedside commode. Telemetry monitoring in place. Appeared somewhat shaky in B UE/LE with movement. High BMI. Mental Status: Alert and oriented as to person, place, time, and purpose. Able to pay attention, focus, and respond appropriately. Pain: 6-7/10 in B feet and hands with weight bearing using FWW Vital Signs: HR and O2 sat WNL throughout ROM: Right Upper Extremity: Shoulder Flexion WFL. Shoulder abduction WFL. Elbow flexion WFL. Wrist flexion WFL. Functional opening and closing of hand WFL. Left Upper Extremity: Shoulder Flexion WFL. Shoulder abduction WFL. Elbow flexion WFL. Wrist flexion WFL. Functional opening and closing of hand WFL. Right Lower Extremity: Hip flexion WFL. Hip abduction WFL. Knee flexion WFL. Ankle dorsiflexion WFL. Ankle plantarflexion WFL. Left Lower Extremity: Hip flexion WFL. Hip abduction WFL. Knee flexion WFL. Ankle dorsiflexion WFL. Ankle plantarflexion WFL. Strength: Right Upper Extremity: Shoulder flexors 4-/5. Shoulder abductors 4-/5. Elbow flexors 4-/5. Elbow extensors 4-/5. Cad Draftsman weak but functional. Left Upper Extremity: Shoulder flexors 4-/5. Shoulder abductors 4-/5. Elbow flexors 4-/5. Elbow extensors 4-/5. Cad Draftsman weak but functional. Right Lower Extremity: Hip flexors 4-/5. Hip abductors 4-/5. Knee flexors 4-/5. Knee extensors 4-/5. Ankle dorsiflexors 4-/5. Ankle plantarflexors 4/5. Left Lower Extremity: Hip flexors 4-/5. Hip abductors 4-/5. Knee flexors 4-/5. Knee extensors 4-/5. Ankle dorsiflexors 4-/5. Ankle plantarflexors 4/5. Bed Mobility/Transfers: Sit to stand with minimal assist with minimal cues for safe/correct technique Stand to sit with conatct guard assist with minimal cues for safe/correct technique Bedside commode to bed with minimal assist with minimal cues for walker management Gait: Instructed patient with level surface ambulation of about 20 feet requiring minimal assist. Step length and width asymmetric. Gait slowed down and unstable. Pain of up to 7/10 reported in B feet, some pain in B hands while pushing down on walker handles. Patient reports decreased awareness in B feet requiring her to look at them while walking to feel more safe. Verbalized that she could not go any farther as she felt that her legs were not there. Balance: Static Sitting: Good Dynamic Sitting: Good Static Standing: Fair Dynamic Standing: Fair Special Tests: Mobility Limitations Standardized Measure [facility] 6 clicks Basic Mobility Inpatient Short Form: Raw Score: 17 CMS Score: 51% deficit NEURO TESTIN-stage balance test: Unable to do all 4 positions (feet together, semi-tandem, full tandem, one-legged stance) for 10 seconds. Romberg Test: Deferred for now Finger to finger pointing: Impaired using index finger on each side at a time, R more affected than L Toe tapping: Impaired in B feet R more affected than the L L2 myotome 4-/5 L3 myotome 4-/5 L4 myotome 4-/5 L5 myotome 4-/5 S1 myotome 4-/5 Normotonic throughout B UE/LE Speech clear Informed Consent/Education: Patient was instructed in purpose of PT consult and plan of care. Agreeable to proceed with established PT POC to achieve personal goals. Assessment: No muscle atrophy noted in B UE/LE. Normotonic in B UE/LE. Strength deficit minimal and symmetric. Rapid alternating movement impaired in B UE and LE but worse in B LE. Grasp weak but functional on B sides. Activity tolerance significantly decreased. Anxiety now increased with ongoing symptoms, limiting her ability to move. UE and LE coordination impaired. Patient presents with clinical signs and symptoms consistent with current/admitting diagnoses that have resulted to mobility limitations, gait instability, generalized weakness, and overall ADL decline as demonstrated by the following impairment level findings: 1. Decreased strength to B UE/LE major muscle groups 2. Impaired standing balance 3. Impaired walking and standing tolerance 4. Decreased proprioception in B hands affecting grasp 5. Decreased proprioception in B feet affecting safety of ambulation 6. Swelling to B legs Impairments are contributing to the following functional limitations: 1. Decline in bed mobility skills 2. Decline in transfer skills 3. Difficulty with ambulation without assistive device and physical assistance 4. Increased completion time for mobility ADL performance 5. Increased risk for falls 6. Difficulty with managing steps alone safely 7. [facility] mobility deficit score of 51% Patient is assessed as a 39462 moderate complexity based on the following: History: 62-year-old female with past medical history as indicated above Examination: Demonstrable impairment in strength, balance, and mobility level with underlying impairments and functional limitations as exhibited above as well as deficit score of 51% utilizing the [facility] Mobility Inpatient Short Form Presentation: Evolving Decision Makin moderate complexity Goals: Goals X1 week 1. Supine-Sit independent 2. Sit-Supine independent 3. Sit-Stand independent 4. Stand-Sit independent with FWW 5. Bed-Chair independent with FWW 6. Chair-Bed independent with FWW 7. Supervision gait on level surface with use of FWW for at least 200 feet without report of pain nor dyspnea 8. Supervision stair negotiation while holding onto [] rails for at least [] steps without report of pain nor dyspnea 9. Supervision with home exercise program 10. Good static and dynamic standing balance/tolerance Plan of Care/Treatment Plan: 1-2x/day, 7 days/week x 1 week. Plan of care has been reviewed with the AMPOULE EXAMINER providing the service under Physical Therapy direction. Initiate Physical Therapy intervention for pain management as needed, strengthening, bed mobility, transfers, gait, stairs, balance training, and use of assistive device. DISCHARGE RECOMMENDATIONS: [] Home with no services [] [] Home with services [specify] [] Home with outpatient PT [] [] SNF for continued rehabilitation [] [] Con[facility] Care [] [] SNF versus LTC based on ability to participate and progress [] [X] HHPT vs SNF based on progress towards goals TREATMENT CODE/TIME: 58259 x 25, 68115 x 16 minutes beginning at 10:25 AM. Thank you for the opportunity to participate in the care of this patient. Chelsie Crews PT, DPT, CLT [facility] [place], [place]
[2023-01-02 12:16] LABS: Vitamin B12 > 2000 pg/mL (193-986)
--- NOTE | 2023-01-02 12:20 | DI.MRI_ITS ---
Exam(s) MR CERVICAL SPINE WO EXAM: MR CERVICAL SPINE WO CLINICAL HISTORY: ascending polyneuropathy TECHNIQUE: Multiplanar multisequence MRI of the cervical spine was performed without intravenous con trast. COMPARISON: No exams were available for comparison FINDINGS: Exam is somewhat limited by motion. BONES: Vertebral body heights are maintained. Alignment is normal. Bone marrow signal intensity is wi thin normal limits. CERVICAL CORD: Craniovertebral junction is unremarkable. The cervical cord is normal size and signal intensity. SOFT TISSUES: Unremarkable. C2-3: No disc herniation or bulge is identified. No evidence of neural foraminal narrowing. No signi ficant central canal stenosis C3-4: No disc herniation or bulge is identified. No evidence of neural foraminal narrowing. No signif icant central canal stenosis C4-5: No disc herniation or bulge is identified. No evidence of neural foraminal narrowing. No signif icant central canal stenosis C5-6: No disc herniation or bulge is identified. No evidence of neural foraminal narrowing. No signif icant central canal stenosis C6-7: Small endplate osteophytes and mild loss of disc height. Mild concentric disc bulging causing effacement of the CSF space. Mild bilateral neural foraminal narrowing. C7-T1: Minimal disc osteophytes. No evidence of neural foraminal narrowing. No significant central c anal stenosis IMPRESSION: Degenerative disc changes at C6-7 causing mild narrowing of the AP dimension of the central canal and mild bilateral neural foraminal narrowing.. Cord signal normal. DATA REPOSITORY:
--- NOTE | 2023-01-02 13:23 | NCONE_ITS ---
Date of service: 01/02/23 Time of Service: :23 Assessment and Plan Assessment and plan (1) Generalized weakness: Status: Acute (2) Frequent falls: Status: Acute (3) Polyneuropathy: Status: Acute (4) Spinal stenosis of lumbar region: Status: Chronic Assessment and plan: Ms. Bernal presents with a 1-2+ year decline in ambulation worse in the last months and weeks. Her neurological exam is consistent with a peripheral neuropathy. Her ambulation and findings are complicated by lumbar spine disease, ETOH use, obesity, significant LE edema, as well as chronic deconditioning. I recommend A1c, SPEP, and CK as further work-up. Tick/Lyme, B1 pending. Her clinical history is not suggestive of a AIDP or CIDP. Further, nerve conduction studies of the LE will be extremely difficult given her significant LE edema. I don't think an LP would help with diagnosis given her chronic illnesses. What I do recommend is: -outpatient NCS/EMG of the UE to look for neuropathy vs compressive mononueropathy vs both -work-up and treatment of her LE edema as per primary care team -work-up as above -PT for strengthening and to work on balance. -long-term goals of weight loss and ETOH reduction We discussed medications for what may be neuropathic pain in her feet. Would not do gabapentin due to risk of worsening her LE edema. Thus, could try pregabalin. She did not think it was necessary at this time. Will f/up tomorrow. History of Present Illness History of Present Illness Chief Complaint: weakness and falls Narrative: Handedness: right. HPI: Ms. Bernal is a 62 year-old woman with hypertension, hyperlipidemia, GERD, chronic kidney disease, pre-diabetes, elevated ETOH use, obesity, chronic low back pain s/p lumbar spine surgery, and chronic LE edema. Ms. Bernal notes several years of decline and difficulty walking. She notes chronic low back pain such that she was unable to work as of 2018. She underwent L-spine surgery (L4/5-S1 decompression and fusion) in March 2020 at [facility] for her back pain for which she has had full resolution. She denied have radicular symptoms, numbness, or imbalance at that time. She recalls using a cane for ambulating outside the house ~2 years ago if not longer. Over time, she notes that is became harder and harder to get outside the house, such that she has essentially been house bound for the last 1 year if not longer. During this time, she again notes increasing difficulty with am bulation, particularly stairs, but such that she was using her cane indoors as well for the last 6+ months. She has had numbness in her feet bilaterally for a year if not longer. This has not changed with time. She notes chronic and significant lower extremity edema such that her legs are often weeping fluids. She tried compression stockings remotely but did not like using them. She notes less edema since arriving here which she attributes to laying in bed all day rather than sitting in her chair at home. She has sharp pains and aching pains in her toes and feet present for at least one year if not longer. About one year ago, she started having numbness in her right hand involving the ulnar digits only. Over time, she developed similar symptoms on the left; and now has numbness of the entire hands bilaterally associated with aching pain in her wrists. She is not having any weakness in her arms/hands. In the last 2 weeks, she notes increased wobbliness when walking standing. She has started using a walker and has been hesitant to walk without someone with her. She called her PCP yesterday and fell getting into their truck to get to the appointment. She fell getting out of the truck too. No other falls. Her works during the day such that she is home alone. She drinks once glass of wine daily, drinking more on weekends. I was able to review her [facility] records. At the time of her lumbar spine surgery in 2019, she was having LBP with claudication, pain radiating into her legs bilaterally as well as numbness in her feet. She had absent LE reflexes at that time. Work-up: -CTH (01/01/23): No acute findings. I reviewed these images personally and this is my personal interpretation. -MRI brain (01/01/23): no acute findings. Moderate chronic vascular changes - more than expected for age. I reviewed these images personally and this is my personal interpretation. -MRI L-spine (01/01/23): s/p L4-S1 fusion. Moderate L3-4 central stenosis. Mild R>L NF narrowing. I reviewed these images personally and this is my personal interpretation. -MRI c-spine (01/02/23): no cord compression or cord signal changes. Mild central and NF narrowing at C6-7. I reviewed these images personally and this is my personal interpretation. -Labs (01/02/23): TSH 1.18, B12 >2000, Cr 1.1, ESR 53, CRP 3.12 Review of Systems All systems reviewed & are unremarkable except as noted in HPI and below PFSH All Active Problems (Updated 01/02/23 @ 00:47 by Jasvir Jorge) Spinal stenosis of lumbar region (Chronic) Pernicious anemia (Acute 09/26/06) pern Hyperlipidemia (Acute) Headache (Acute 09/26/04) w/vision problems; MRI-demyelination areas vs. sm. vessel disease;MRI 09/01-? of small aneurysm @L clinoids and L ICA 2020- optical migraines- Dr Adams ([facility]) Gastroesophageal reflux disease with esophagitis (Acute) Essential hypertension (Acute) Pedal edema (Acute) 12/2020 Echo- EF 60%, Mildly dilated ascending aorta measuring 3.34 cm Spondylolisthesis at L5-S1 level (Acute) xray 2002-thoracic DJD; L5 spondylo w/Grade II;spondylolisthesis L5 on S1 Surgery 05/16- spinal fusion? [facility] Folic acid deficiency (Acute) Psoriasis (Chronic) steroids topical as needed Sleep apnea (Acute) CPAP since 2018 Skin lesion (Acute) Rhinosinusitis (Acute) Generalized weakness (Acute) Frequent falls (Acute) Polyneuropathy (Acute) Ataxia (Acute) Medical History Alcohol intoxication HTN (hypertension) Lactic acid acidosis Non-toxic uninodular goiter thyroid cyst-removed by Dr. Flores 1999 Syncope UTI (urinary tract infection) UTI (urinary tract infection) Surgical History Cholecystectomy Status post cholecystectomy Family History Mother , age 48 Breast cancer Father , age 90 Stomach cancer Sister No problems noted. Brother No problems noted. Brother No problems noted. Brother No problems noted. Maternal Grandmother , in her 80s No problems noted. Paternal Grandmother , in her 80s No problems noted. Other Syncope Social History Smoking/Tobacco Use Status: Never Smoking risk assessment performed?: Yes Alcohol Intake: current Alcohol Intake frequency: 0-2 drinks per day Alcohol type: beer, wine and hard liquor Drug use: Never Caregiver/Support person: No Household members: spouse Housing: house Communication Needs: None Do you need help understanding health information?: Never Pets and animals: No Sexually active: No Do you think of yourself as: straight/heterosexual Current gender identity: female What is your relationship status?: How often do you talk on the phone with friends or family?: three or more times per week How often do you get together with friends or relatives?: once per week How often do you attend spiritism or episcopalian services?: 1-3 times per year Do you belong to any clubs or organized social groups?: yes Panel score (0-1 are the most socially isolated patients): 3 What type of physical activity do you participate in: none Jodee/Latter Day: Spiritism Special jodee needs: No Seatbelt use: always Drive intox 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 coach tour driver: No Do you feel safe at home: Yes Do you feel safe in your relationship?: Yes Visit Medication and Allergies Active Medications Generic Name Dose Route Start Last Admin Trade Name Freq PRN Reason Stop Dose Admin Acetaminophen 0 mg 01/01/23 22:07 Acetaminophen 325 Mg Tab PO Q4H PRN PRN Al Hydrox/Mg Hydrox/Simethicone 30 ml 01/01/23 22:07 Mylanta Suspension 30 Ml Cup PO Q2H PRN PRN Aspirin 81 mg 01/02/23 08:30 01/02/23 08:55 Aspirin 81 Mg Chew PO 81 mg DAILY CHRISTIE Administration Atenolol 50 mg 01/02/23 08:30 01/02/23 08:46 Atenolol 50 Mg Tab PO 50 mg DAILY CHRISTIE Administration Benzonatate 100 - 200 mg 01/02/23 07:33 Benzonatate 100 Mg Cap PO TID PRN PRN cough Calcium Carbonate 2,000 mg 01/02/23 08:30 01/02/23 08:52 Calcium Carbonate *Tums* 500 Mg Chew PO Not Given DAILY [facility] Cholecalciferol 400 unit 01/02/23 08:30 01/02/23 08:46 Cholecalciferol (Vitamin D3) 400 Unit Tab PO 400 unit DAILY [facility] Administration Cyanocobalamin 500 mcg 01/02/23 08:30 01/02/23 08:50 Cyanocobalamin 500 Mcg Tab PO 500 mcg DAILY [facility] Administration Dimethicone/Zinc Oxide 0 gm 01/01/23 22:07 Joni Protect Cream 142 Gm Tube TP PRN PRN Docusate Sodium 100 mg 01/01/23 22:07 Docusate Sodium 100 Mg Cap PO TID PRN PRN Doxycycline Hyclate 100 mg 01/01/23 20:00 01/02/23 08:55 Doxycycline Hyclate 100 Mg Cap PO 100 mg BID [facility] Administration Enoxaparin Sodium 40 mg 01/02/23 08:30 01/02/23 08:47 Enoxaparin 40 Mg/0.4 Ml Syr SC 40 mg Q24H [facility] Administration Folic Acid 1 mg 01/02/23 08:30 01/02/23 08:55 Folic Acid 1 Mg Tab PO 1 mg DAILY [facility] Administration Sodium Chloride 500 mls @ 0 mls/hr 01/01/23 22:07 Saline 500ml Bag IV PRN PRN As Directed IV Miscellaneous Supplies 1 each 01/01/23 22:15 Iv Access IV DIRECTED [facility] Magnesium Hydroxide 30 ml 01/01/23 22:07 Milk Of Magnesia 30 Ml Cup PO DAILY PRN PRN Nifedipine 30 mg 01/02/23 08:30 01/02/23 08:45 Nifedipine-Cr 30 Mg Tabcr PO 30 mg DAILY [facility] Administration Omeprazole 40 mg 01/03/23 07:30 Omeprazole 20 Mg Capcr PO BID@0730,2000 [facility] Patient's Own 1 each 01/03/23 08:39 Medication ( TP Mometasone 0.1 % DAILY PRN PRN Ointment) skin irritation Polyethylene Glycol 17 gm 01/01/23 22:07 Polyethylene Glycol 3350 17 Gm Packet PO DAILY PRN PRN Constipation Sodium Chloride 0 ml 01/01/23 22:07 Normal Saline Flush 10 Ml Syr IVP PRN PRN Spironolactone 50 mg 01/02/23 08:30 01/02/23 08:47 Spironolactone 50 Mg Tab PO 50 mg QAM [facility] Administration Allergies oxycodone Allergy (Intermediate, Unverified 01/01/23 10:11) sucralfate Allergy (Intermediate, Unverified 01/01/23 10:11) Itching furosemide Allergy (Mild, Unverified 01/01/23 10:11) hydrochlorothiazide Allergy (Mild, Unverified 01/01/23 10:11) influenza A (H5N1) virus vaccine mo Adverse Reaction (Unverified 01/01/23 10:11) Exam Narrative Exam Narrative: Physical Exam: Gen: Patient of apparent stated age, NAD, BMI 43 Head and face: no facial or cranial abnormalities Neck: Supple, no meningismus, no occipital tenderness CV: + S1, S2, RRR, no murmur Resp: CTA B/L Abd: soft, nontender, nondistended Ext: Extensive LE edema. No clubbing or cyanosis. No bony deformity. Neuro Exam: Language: fluency, naming, repetition, and comprehension intact; Mental Status: AAOx3, current events intact, fund of knowledge intact; Speech: no dysarthria Cranial nerves: Funduscopy: not performed CN II: visual somers intact CN III, IV, : extraocular movements intact, no nystagmus, pupils symmetric and reactive to light CN V: face sensation intact to LT and PP CN VII: no facial asymmetry noted CN VIII: hearing intact bilaterally CN IX, X: palate rises symmetrically CN XI: trapezius/SCM 5/5 bilaterally CN XII: protrudes tongue symmetrically Sensory: intact to LT in all extremities; she notes absent PP from the neck down; absent vibration in the R toe and reduced in the LE compared to the UE; absent joint position in the toes bilaterally Motor: bulk and tone intact. Fine motor movements intact bilaterally. No pronator drift. Strength 5/5 throughout the bilateral UE. 4/5 bilateral hip flexors and 4+/5 bilateral all else LE except EHL 0/5 bilaterally. Reflexes: 2+ at the biceps, triceps, and brachioradialis; absent at the patella and achilles tendons bilaterally; toes neutral bilaterally; Coordination: FTN and HTS intact bilaterally Gait: able to stand unassisted. While standing, initially with some leg shaking but no tremor. The shaking improved the longer she stood. Results Last Vital Signs Temp 97.5 F L 01/02/23 07:03 Pulse 70 01/02/23 10:01 Resp 20 01/02/23 11:20 BP 125/73 01/02/23 10:01 Pulse Ox 96 01/02/23 07:03 Labs 01/02/23 05:34 01/02/23 05:34 Labs: Laboratory Results - last 24 hr 01/01/23 01/02/23 01/02/23 20:50 05:34 05:34 WBC RBC Hgb Hct MCV MCH MCHC RDW Plt Count MPV ESR 53 H Sodium Potassium Chloride Carbon Dioxide Anion Gap BUN Creatinine Est GFR (CKD-EPI 2020) Glucose Calcium Magnesium Total Bilirubin AST ALT Alkaline Phosphatase C-Reactive Protein Total Protein Albumin Vitamin B12 TSH 1.18 COVID-19 Source Nasal/Nares SARS-CoV-2 (PCR) Negative Add-On Test Request 01/02/23 01/02/23 01/02/23 05:34 05:34 05:34 WBC 7.33 RBC 3.08 L Hgb 10.3 L Hct 31.1 L MCV 101 H MCH 33.4 H MCHC 33.1 RDW 12.1 Plt Count 140 MPV 9.3 ESR Sodium 141 Potassium 4.5 Chloride 105 Carbon Dioxide 24.6 Anion Gap 11.4 H BUN 23 H Creatinine 1.1 H Est GFR (CKD-EPI 2020) 56.81 Glucose 92 Calcium 9.2 Magnesium 1.6 L Total Bilirubin 0.5 AST 22 ALT 24 Alkaline Phosphatase 84 C-Reactive Protein 3.12 H Total Protein 6.5 Albumin 2.5 L Vitamin B12 TSH COVID-19 Source SARS-CoV-2 (PCR) Add-On Test Request 01/02/23 01/02/23 05:34 Unknown WBC RBC Hgb Hct MCV MCH MCHC RDW Plt Count MPV ESR Sodium Potassium Chloride Carbon Dioxide Anion Gap BUN Creatinine Est GFR (CKD-EPI 2020) Glucose Calcium Magnesium Total Bilirubin AST ALT Alkaline Phosphatase C-Reactive Protein Total Protein Albumin Vitamin B12 > 2000 H TSH COVID-19 Source SARS-CoV-2 (PCR) Add-On Test Request DONE
--- NOTE | 2023-01-02 14:40 | NUR.NOTE ---
lunch provided Nursing Note:
--- NOTE | 2023-01-02 17:05 | PTTR_ITS ---
Date of service: 01/02/23 Time of Service: 13:36 PT Notes Visit Reasons: Generalized weakness with ataxia Physical Therapy Inpatient Treatment Note Date: 01/02/2023 Precautions: Fall. Standard. Activity as tolerated. Subjective: Indicates that she has only taken tea since this morning. She has not had lunch at time of this visit and is considerably hungry, medical technologist blood bank Phillip updated about this matter. States that she has been seen by the neurologist and is wondering about how she can get her compression garment for B legs. Reports less pain in B hands and feet tis afternoon. Verbalizes that her hands tend to get cold intermittently. Objective: General Observation: Seated at edge of bed. High BMI. Mental Status: Alert and oriented as to person, place, time, and purpose. Able to pay attention, focus, and respond appropriately. Pain: 4-5/10 in B feet and hands with weight bearing using FWW Vital Signs: HR and O2 sat WNL throughout Bed Mobility/Transfers: Sit to stand with minimal assist with minimal cues for safe/correct technique Stand to sit with contact guard assist with minimal cues for safe/correct technique Bedside commode to bed with minimal assist with minimal cues for walker management Gait: Instructed patient with level surface ambulation of about 20 feet x 2 requiring minimal assist and wheelchair follow. Step length and width asymmetric. Gait slowed down and unstable.? Pain of up to 64-5/10 reported in B feet,? some pain in B hands while pushing down on walker handles.? Patient reports decreased awareness in B feet requiring her to look at them while walking to feel more safe.? Balance: Static Sitting: Good Dynamic Sitting: Good Static Standing: Fair Dynamic Standing: Fair THERA EX: Shoulder hor abd/add x 10 using yellow TB Bilateral heel raises while holding onto FWW x 10 Sit<>stand x 10 using B UE for support Assessment: No muscle atrophy noted in B UE/LE.? Normotonic in B UE/LE.? Strength deficit minimal and symmetric.? Rapid alternating movement impaired in B UE and LE but worse in B LE.? Grasp weak but functional on B sides.? Activity tolerance significantly decreased.? Anxiety now increased with ongoing symptoms, limiting her ability to move. UE and LE coordination impaired. Patient will benefit from services to address impairments in strength, balance, coordination, and mobility level. DISCHARGE RECOMMENDATIONS: [] ? Home with no services [] [] ? Home with services [specify] [] ? Home with outpatient PT [] [] ? SNF for continued rehabilitation [] [] ? [facility] [] [] ? SNF versus LTC based on ability to participate and progress [] [X]? HHPT vs SNF based on progress towards goals TREATMENT CODE/TIME: 76488 x 20 minutes , 57562 x 14 minutes beginning at 13:36 PM.
--- NOTE | 2023-01-02 18:52 | PGE_ITS ---
Date of Service Date of service: 01/02/23 Time of Service: 12:00 Assessment and Plan Assessment and plan (1) Generalized weakness: Status: Acute Assessment and plan: Patient is complaining of generalized weakness which appears to be worse distally in both upper and lower extremities though she does have adequate movement against resistance with grasp and with dorsiflexion of great toe. She cannot stand and is unsafe with self ambulation at this time. PT and OT evaluation and neurological consultation. Seen by Dr Vang - see her note. (2) Ataxia: Status: Acute Assessment and plan: Patient has some discoordination with her weakness - PT/OT consult (3) Polyneuropathy: Status: Acute Assessment and plan: See above (4) Spinal stenosis of lumbar region: Status: Chronic Assessment and plan: Mild by imaging with previous surgical intervention for lumbar degenerative disc disease and radicular symptoms. See above Subjective Subjective Patient reports: no new complaints, feels better, tolerating a regular diet, bowel movement and afebrile; denies diarrhea, nausea, vomiting or shortness of breath Interval history since last seen: Awake, alert sitting in the chair in the room. States she is feeling stronger and would like to go to SNF for short term rehab Exam Narrative Exam Narrative: General: Patient is moderately obese, appears older than stated age, alert and oriented x3 with flattened affect and good eye contact. She is in no acute distress. HEENT: Normocephalic, eyes with pupils equal reactive light symmetrically, extraocular movement intact and sclera anicteric. Oropharynx with moist mucosa. Neck: Supple without JVD. Back: Stooped posture without CVA tenderness. Decreased range of motion lower back with loss of lordotic curve. Lungs: Fair aeration clear to oscillation percussion. Breast: Exam deferred. Heart: Regular rate and rhythm with no murmurs gallops appreciated Abdomen: Obese contour, soft nontender to palpation with no palpable hepatosplenomegaly. Bowel sounds positive in all quadrants. Genitalia/rectal: Exam deferred. Extremities: Without clubbing, cyanosis or grossly pitting edema with patient having nonpitting edema of both legs. Skin: Normal color, warm and dry. Neuro: Cranial nerves II through XII gross intact. Motor with decreased strength over upper and lower extremities but able to dorsiflex feet and great toe against resistance though she finds it difficult to stand with some ataxia and decreased proprioception with patient not aware of her extremities such as missing her mouth when she attempts to drink a glass of water. This involves upper and lower extremities. No Babinski's. No tremor. (Full neurological exam hopefully to be accomplished by neurology with consultation in the morning). Psych: Flattened affect with depressed mood though there is some variability in her affect. Good eye contact. She appears cautious in conversation. No abnormal thought processes. Remote and recent memory intact. Const General: cooperative, comfortable and no acute distress Nutritional Appearance: obese Orientation: alert, awake and oriented x3 HENMT Head: normal to inspection, normocephalic and atraumatic Eyes Eyelids: eyelids normal Pupils: PERRL EOM: EOM intact bilaterally Neck Neck: normal visual inspection and no JVD Lymphatic: no lymphadenopathy noted Chest Chest: normal inspection of the chest Resp Effort & Inspection: normal respiratory effort Auscultation: clear to auscultation bilaterally Cardio Jugular venous pressure: no JVD Rhythm: regular rhythm Heart Sounds: S1 normal GI Auscultation: normal bowel sounds General: No CVA tenderness and deferred Skin General skin exam: no rashes or lesions noted Neuro General: patient alert, patient awake and patient oriented x3 Cognition: normal cognition Speech: speech normal Gait: normal gait Extrem General: full ROM and edema Psych Mental Status: mental status grossly normal Speech and Movement: speech and movement normal Mood: congruent mood Affect: normal affect Objective Last Vital Signs Temp 36.4 C L 01/02/23 17:14 Pulse 66 01/02/23 17:14 Resp 17 01/02/23 17:14 BP 106/67 01/02/23 17:14 Pulse Ox 96 01/02/23 17:14 Laboratory Results - last 24 hr 01/01/23 01/02/23 01/02/23 20:50 05:34 05:34 WBC RBC Hgb Hct MCV MCH MCHC RDW Plt Count MPV ESR 53 H Sodium Potassium Chloride Carbon Dioxide Anion Gap BUN Creatinine Est GFR (CKD-EPI 2020) Glucose Calcium Magnesium Total Bilirubin AST ALT Alkaline Phosphatase C-Reactive Protein Total Protein Albumin Vitamin B12 TSH 1.18 COVID-19 Source Nasal/Nares SARS-CoV-2 (PCR) Negative Add-On Test Request 01/02/23 01/02/23 01/02/23 05:34 05:34 05:34 WBC 7.33 RBC 3.08 L Hgb 10.3 L Hct 31.1 L MCV 101 H MCH 33.4 H MCHC 33.1 RDW 12.1 Plt Count 140 MPV 9.3 ESR Sodium 141 Potassium 4.5 Chloride 105 Carbon Dioxide 24.6 Anion Gap 11.4 H BUN 23 H Creatinine 1.1 H Est GFR (CKD-EPI 2020) 56.81 Glucose 92 Calcium 9.2 Magnesium 1.6 L Total Bilirubin 0.5 AST 22 ALT 24 Alkaline Phosphatase 84 C-Reactive Protein 3.12 H Total Protein 6.5 Albumin 2.5 L Vitamin B12 TSH COVID-19 Source SARS-CoV-2 (PCR) Add-On Test Request 01/02/23 01/02/23 05:34 Unknown WBC RBC Hgb Hct MCV MCH MCHC RDW Plt Count MPV ESR Sodium Potassium Chloride Carbon Dioxide Anion Gap BUN Creatinine Est GFR (CKD-EPI 2020) Glucose Calcium Magnesium Total Bilirubin AST ALT Alkaline Phosphatase C-Reactive Protein Total Protein Albumin Vitamin B12 > 2000 H TSH COVID-19 Source SARS-CoV-2 (PCR) Add-On Test Request DONE Time Spent with Patient Time Spent with Patient: 25-34 minutes Time was spent: preparing to see the patient(eg.review tests), obtaining and/or reviewing separately otained hiistory, ordering medications,tests, procedures, referring, communicating with other health resident care provider, indepentently interpreting results, counseling the patient and care coordination
[2023-01-02] MEDS: Calcium Carbonate *TUMS* 500 MG CHEW 2000 MG PO (21:08)
[2023-01-02] MEDS: Omeprazole 20 MG CAPCR 40 MG PO (21:09)
[2023-01-03] VITALS (8 sets, daily range): BP systolic 98–115; BP diastolic 67–74; PULSE 61–74; RESP 14–19; TEMP 35.6–37.4; O2SAT 95–98
--- NOTE | 2023-01-03 | DI.US_ITS ---
APPROVED REPORT EXAM: Comprehensive 2D, Doppler, and color-flow Echocardiogram Patient Location: In-Patient Room/Bed: 209 Principal Engineer: Geraldine Naqvi RDCS (AE) Indications: Peripheral Edema, Dyspnea Other Information Study Quality: Fair. Technically limited study due to body habitus, inability to position patient exa m done bedside supine. Conclusion Normal left ventricular wall thickness and chamber size. Estimated ejection fraction is 60%. Wall m otion is normal The right atrium and right ventricle are not well visualized Left atrial size is normal Within the limits of the study there is no structural or hemodynamically significant valvular disease Estimated right ventricular systolic pressure is normal at 22 mmHg Wall motion Left Ventricle The left ventricle is normal size. The overall left ventricular systolic function appears normal. The re is normal left ventricular wall thickness. There is normal LV segmental wall motion. There is no v entricular septal defect visualized. LVEF is 60%. Right Ventricle Right ventricle is not well visualized. Right ventricular systolic function could not be assessed. Th e RVSP is 22.4 mmHg. Atria The left atrium size is normal. Right atrium is not well visualized. The interatrial septum is intact with no evidence for an atrial septal defect. Aortic Valve The aortic valve is normal in structure. Aortic valve is trileaflet. There is no aortic valvular sten osis. No aortic regurgitation is present. Mitral Valve The mitral valve is normal in structure. No evidence of mitral valve stenosis. Trace mitral regurgita tion. Tricuspid Valve The tricuspid valve is normal in structure. There is no tricuspid valve stenosis. Trace tricuspid reg urgitation. Pulmonic Valve Pulmonic valve is not well visualized. There is no pulmonic valvular stenosis. There is no pulmonic v alvular regurgitation. Great Vessels The aortic root is normal in size. The ascending aorta is normal Aortic arch is normal in caliber. IV C is normal in size and collapses >50% with inspiration. Pericardium There is no pericardial effusion. 2D Dimensions IVSD d PLAX 0.90 cm F: 0.6-1.0 LV Vol A2C d MOD 64.0 mL LVPW d PLAX 0.92 cm F: 0.6 - 1.0 LV Vol A4C d MOD 104.4 mL LVID d PLAX 4.49 cm F: 3.8 - 5.2 LV EF A4C MOD 60.8 % LVDs 3.00 cm F: 2.2 - 3.5 LV EF A2C MOD 60.6 % Ao Root d 3.02 cm F: 2.7 - 3.3 LV EF Biplane MOD 59.2 % Ao Asc Diam d 3.34 cm F: 2.3 - 3.1 SV 48.84 mL LV EF Teichholz 61.4 % LVEF (Calvo's) 59.24 % F: 54 - 74 LV Volume 82.45 mL F: 46 - 106 LV Volume Index 40.21 mL/m2 F: 29 - 61 LV Vol Biplane MOD 82.4 mL FS 32.75 % LV Diastology MV E' medial 0.131 (>0.07 m/s) E/A Ratio 1.1 LV E/e MED 6.65 (<14) MV E Vmax 0.87 (0.4-1.3 m/s) MV E' lateral 0.083 (>0.1 m/s) MV A Vmax 0.80 (0.4-1.3 m/s) LV E/e LAT 10.45 (<14) MV E/A Ratio 1.07 MV E/E' medial 6.65 MV E/E' lateral 10.47 Aortic Valve LVOT Area 3.10 cm2 AoV Area Vmax 2.62 cm2 LVOT Vmax 1.15 m/s ADA Mean Puma. 2.35 cm2 LVOT Mean Puma. 0.72 m/s LVOT Peak Grad 5.2 mmHg LVOT Mean Grad 2.5 mmHg LVOT VTI 0.246 m LVOT Diam s 1.95 cm AoV Vmax 1.36 m/s Velocity Ratio 0.85 AoV Mean Puma. 0.95 m/s AoV Peak Grad 7.4 mmHg LVOT SV 76.38 mL AoV Mean Grad 4.1 mmHg AoV VTI 0.279 m AoV Area VTI 2.74 cm2 Mitral Valve MV DT 212 (160-240 msec) MV PHT 61 msec MV Area PHT 3.58 cm2 MV VTI 0.355 m MV Area VTI 2.15 (4.0-6.0 cm2) Pulmonary Valve PV Vmax 0.96 (0.5-1.5 m/s) RVOT Peak Gr. 2.51 mmHg PV Peak Grad 3.7 mmHg RVOT Mean Gr. 1.45 mmHg PV Mean Grad 2.0 mmHg RVOT VTI 0.197 m PV VTI 0.224 m RVOT Vmax 0.79 m/s Tricuspid Valve TR Peak Grad 19.3 mmHg TR Vmax 2.20 m/s RA Pressure 3.00 mmHg RVSP (TR) 22.4 mmHg
[2023-01-03 06:41] LABS: Abs Immature Grans 0.03 10^3/uL (0.0-0.06); Absolute Basophil Count 0.04 10^3/uL (0.0-0.2); Absolute Eosinophil Count 0.09 10^3/uL (0.0-0.7); Absolute Monocyte Count 0.26 10^3/uL (0.1-0.8); Absolute Neutrophil Count 3.31 10^3/uL (1.2-6.7); Basophils % 0.8; Eosinophils % 1.8; HCT 30.3 % (36.0-46.0); Immature Grans % 0.6; Lymphocytes % 24.3; MCH 33.4 pg (27.0-33.0); MCV 101 fL (80-95); MPV 9.5 fL (8.0-11.0); Monocytes % 5.3; Neutrophils % 67.2; Platelet Count 139 10^3/uL (130-400); RBC 2.99 10^6/uL (3.93-5.22); RDW 12.3 % (11.7-14.6); RDW-SD 45.7 fL; WBC 4.93 10^3/uL (4.4-10.8)
[2023-01-03 06:54] LABS: Anion Gap 11.5 mmol/L (3-11); BUN 25 mg/dL (7-18); CO2 25.5 mmol/L (21.0-32.0); CREATININE 1.1 mg/dL (0.55-1.02); Calcium 9.3 mg/dL (8.5-10.1); Chloride 103 mmol/L (98-107); Estimated GFR 56.81 (mL/min/1.73m2); Glucose 84 mg/dL (74-106); Magnesium 1.3 mg/dL (1.8-2.4); Sodium 140 mmol/L (136-145)
[2023-01-03 06:58] LABS: Creatine Kinase 9 U/L (26-192)
[2023-01-03] MEDS: Omeprazole 20 MG CAPCR 40 MG PO ×2 (09:14→20:39)
[2023-01-03] MEDS: NIFEdipine-CR 30 MG TABCR PO (09:14)
[2023-01-03] MEDS: Cyanocobalamin 500 MCG TAB PO (09:14)
[2023-01-03] MEDS: Acetaminophen 325 MG TAB PO (09:14)
[2023-01-03] MEDS: Folic Acid 1 MG TAB PO (09:14)
[2023-01-03] MEDS: Doxycycline Hyclate 100 MG CAP PO ×2 (09:14→20:39)
[2023-01-03] MEDS: Cholecalciferol (Vitamin D3) 400 UNIT TAB PO (09:14)
[2023-01-03] MEDS: Atenolol 50 MG TAB PO (09:15)
[2023-01-03] MEDS: Aspirin 81 MG CHEW PO (09:15)
[2023-01-03] MEDS: Spironolactone 50 MG TAB PO (09:15)
[2023-01-03] MEDS: Enoxaparin 40 MG/0.4 ML SYR SC (09:15)
--- NOTE | 2023-01-03 10:10 | CMPROGNOTE_ITS ---
- If Service Date Differs Date of service: 01/03/23 Time of Service: 10:10 Care Management Progress Note S/O: Bing was sitting in her chair when CM met with her. She discussed how she has had a slow decline at home, but in the last week she had a big change, and was not able to ambulate independently. She expressed concern about being home alone when her is at work, but also stated that if he doesn't work she will not have health insurance. She stated that she is agreeable to rehab, but she isn't sure if her insurance will cover it, and is worried about a large medical bill. CM discussed sending referrals, and if she is accepted, the facility will do a PA prior to her going, so she will have some assurance that her insurance has agreed to pay, although CM stated that there are no guarantees that it will be fully covered. Bing [facility] [place] and the [place]. CM requested an OT consult, at PT's recommendation. CM will continue to follow. A: Bing is a 62 year old female admitted to [facility] on 01/01/23 with generalized weakness with ataxia. P: Bing will return home with services vs SNF for short term rehab. Her will likely transport her, via private vehicle. She will follow up with her PCP and discharge plan of care. CM will continue to follow.
[2023-01-03 10:35] LABS: Lyme Ab w Rflx to Lyme Confirm Negative (Negative)
[2023-01-03] MEDS: Normal Saline 500 ML 30 ML IV (11:15)
[2023-01-03] MEDS: MAGNESIUM SULFATE 4 GM/100 ML BAG IVPB (11:15)
--- NOTE | 2023-01-03 15:37 | PTTR_ITS ---
Date of service: 01/03/23 Time of Service: 15:00 PT Notes Visit Reasons: Generalized weakness with ataxia Inpatient Physical Therapy Treatment Note [facility] Date: 01/03/2023 PRECAUTIONS: Activity as tolerated, fall SUBJECTIVE: Bing is pleasant and agreeable to participating in PT. She reports that she continues to feel weak, however, does note improved ability to complete bed mobility. OBJECTIVE: PAIN: No c/o pain BED MOBILITY/TRANSFERS Supine-sit: SBA with HOB flat with cueing for technique and use of leg ultrasonic tester (performed x2) Sit-supine: SBA with HOB flat with cueing for technique and use of leg ultrasonic tester (performed x2) Sit-stand: SBA Stand-sit: SBA GAIT Assistive Device: FWW Weight bearing: Full Assist: SBA Distance: 150' + 100' + 50' Deviation: Slow pacing, fatigue, minimal SOB, seated rest x2 ASSESSMENT: Patient tolerated a progression in gait distance with FWW support and SBA. she continues to demonstrate global weakness and deconditioning. PLAN: Continue with global strengthening and general conditioning for improved activity tolerance and mobility. TREATMENT CODE/TIME: 26 minutes; 18393 x2 (15:00)
[2023-01-03] MEDS: Docusate Sodium 100 MG CAP PO (16:45)
--- NOTE | 2023-01-03 17:15 | PT.INTREAT ---
Date of service: 01/03/23 Time of Service: 10:07 PT Notes Visit Reasons: Generalized weakness with ataxia Physical Therapy Inpatient Treatment Note Date: 01/03/2023 Precautions: Fall. Standard. Activity as tolerated. Subjective: Reports that her legs feel like sponges after walking activity this morning. Adds that she also gets intermittent cramping sensation in B feet for the past year. Objective: General Observation: Seated on bedside chair. High BMI. Mental Status: Alert and oriented as to person, place, time, and purpose. Able to pay attention, focus, and respond appropriately. Pain: 7/10 in B hands with weight bearing using FWW Vital Signs: HR and O2 sat WNL throughout Bed Mobility/Transfers: Sit to stand with contact guard assist, cues given to Use B hands for support Stand to sit with contact guard assist, cues given to Use B hands for support Gait: Instructed patient with level surface ambulation of about 80 feet x 2 requiring contact guard assist and wheelchair follow. Step length and width asymmetric. Reports 6-7/10 pain in B hands, denies pain in B feet. Visual cues needed to allow better control of limb advancement, patient tends to look down on B feet for improved awareness. Balance: Static Sitting: Good Dynamic Sitting: Good Static Standing: Fair Dynamic Standing: Fair THERA EX: Bilateral heel raises while holding onto FWW x 10 Chest expansion exercises with B UE flexion/extension Sit<>stand x 10 using B UE for support Chest expansion exercises with B UE hor abd/add Partial knee bends x 10 Special Test: Romberg Test: Positive with increased posteroanterior sway with near LOB requiring moderate assist from PT to prevent fall Assessment: Romberg test positive. Gait more stable compared to yesterday. No report of pain in B feet even with weight bearing. No muscle atrophy noted in B UE/LE.? Normotonic in B UE/LE.? Strength deficit minimal and symmetric.? Rapid alternating movement impaired in B UE and LE but worse in B LE.? Grasp improved but betsy=maria luisa weak. Will need OT evalaution for self-care and hand dexterity skilling. weak but functional on B sides.? Activity tolerance significantly decreased.? Anxiety now increased with ongoing symptoms, limiting her ability to move. UE and LE coordination impaired.? Patient will benefit from services to address impairments in strength,? balance, coordination, and mobility level. DISCHARGE RECOMMENDATIONS: [] ? Home with no services [] [] ? Home with services [specify] [] ? Home with outpatient PT [] [] ? SNF for continued rehabilitation [] [] ? Skilled Nursing Care [] [] ? SNF versus LTC based on ability to participate and progress [] [X]? HHPT vs SNF based on progress towards goals TREATMENT CODE/TIME: 61750 x 20 minutes ,? 89961 x 14 minutes beginning at 13:36 PM.
--- NOTE | 2023-01-03 17:20 | PGE_ITS ---
Date of Service Date of service: 01/03/23 Time of Service: 17:20 Assessment and Plan Assessment and plan (1) Generalized weakness: Status: Acute (2) Frequent falls: Status: Acute (3) Polyneuropathy: Status: Acute (4) Spinal stenosis of lumbar region: Status: Chronic Assessment and plan: Ms. Bernal presents with a 1-2+ year decline in ambulation worse in the last months and weeks. Her neurological exam is consistent with a peripheral neuropathy. Her ambulation and findings are complicated by lumbar spine disease, ETOH use, obesity, significant LE edema, as well as chronic deconditioning. SPEP, Tick panel, B1 pending. Her clinical history is not suggestive of a AIDP or CIDP. Further, nerve conduction studies of the LE will be extremely difficult given her significant LE edema. I don't think an LP would help with diagnosis given her chronic illnesses. What I do recommend is: -outpatient NCS/EMG of the UE to look for neuropathy vs compressive mononueropathy vs both -work-up and treatment of her LE edema as per primary care team -PT for strengthening and to work on balance. I told her today that I really think she should go to SNF as I don't think she is going to get the exercise she needs with Home health and I am not confident she can self-motivate -long-term goals of weight loss and ETOH reduction - she states she will stop drinking ETOH completely She should follow-up in the neurology clinic in the next few weeks for NCS/EMG. Subjective Subjective Interval history since last seen: Bing has already noticed improved strength. Able to walk about the hospital floor today with a walker. She knows she needs to be more active. Still has not been given compression stockings. - thigh-highs have been ordered. However, she notes edema still better than usual. -Labs: CK 9, A1c 5.0, Mag 1.6 -> 1.3, Lyme negative -Pending labs: B1, SPEP, Tick panel Exam Narrative Exam Narrative: Physical Exam: Constitutional: Patient of apparent stated age, well nourished, well developed, no acute distress Extrem: stable bilateral LE edema Neuro: MS/Language/Speech: Alert, oriented, clear language (fluency and comprehension), no dysarthria Motor: Normal bulk and tone. FMM intact, no pronator drift. 5/5 strength in bilateral upper extremities. 4-/5 bilaetal hip flexors. EHL 4-/5 bilaterally today. Coordination: Finger to nose performed without dysmetria Gait: not tested today Objective Last Vital Signs Temp 96.1 F L 01/03/23 15:19 Pulse 62 01/03/23 15:34 Resp 18 01/03/23 15:19 BP 108/73 01/03/23 15:19 Pulse Ox 98 01/03/23 15:19 Laboratory Results - last 24 hr 01/01/23 01/03/23 01/03/23 17:20 05:50 05:50 WBC 4.93 RBC 2.99 L Hgb 10.0 L Hct 30.3 L MCV 101 H MCH 33.4 H MCHC 33.0 RDW 12.3 Plt Count 139 MPV 9.5 Immature Gran % 0.6 Neutrophils % 67.2 Lymphocytes % 24.3 Monocytes % 5.3 Eosinophils % 1.8 Basophils % 0.8 Nucleated RBC % 0.0 Absolute Neutrophils 3.31 Absolute Lymphocytes 1.20 Absolute Monocytes 0.26 Absolute Eosinophils 0.09 Absolute Basophils 0.04 Sodium 140 Potassium 4.0 Chloride 103 Carbon Dioxide 25.5 Anion Gap 11.5 H BUN 25 H Creatinine 1.1 H Est GFR (CKD-EPI 2020) 56.81 Glucose 84 Hemoglobin A1c Calcium 9.3 Magnesium 1.3 L Creatine Kinase Lyme Disease Antibody Negative 01/03/23 01/03/23 05:50 05:50 WBC RBC Hgb Hct MCV MCH MCHC RDW Plt Count MPV Immature Gran % Neutrophils % Lymphocytes % Monocytes % Eosinophils % Basophils % Nucleated RBC % Absolute Neutrophils Absolute Lymphocytes Absolute Monocytes Absolute Eosinophils Absolute Basophils Sodium Potassium Chloride Carbon Dioxide Anion Gap BUN Creatinine Est GFR (CKD-EPI 2020) Glucose Hemoglobin A1c 5.0 Calcium Magnesium Creatine Kinase 9 L Lyme Disease Antibody Time Spent with Patient Time Spent with Patient: 25-34 minutes Time was spent: preparing to see the patient(eg.review tests), referring, communicating with other health respiratory care faculty and counseling the patient
--- NOTE | 2023-01-03 19:27 | W.PM.PROGNOT ---
Date of Service Date of service: 01/03/23 Time of Service: 13:00 Assessment and Plan Assessment and plan (1) Generalized weakness: Status: Acute Assessment and plan: Patient is complaining of generalized weakness which appears to be worse distally in both upper and lower extremities though she does have adequate movement against resistance with grasp and with dorsiflexion of great toe. She cannot stand and is unsafe with self ambulation at this time. PT and OT evaluation and neurological consultation. Seen by Dr Vang - see her note. (2) Ataxia: Status: Acute Assessment and plan: Patient has some discoordination with her weakness - PT/OT consult (3) Polyneuropathy: Status: Acute Assessment and plan: See above (4) Spinal stenosis of lumbar region: Status: Chronic Assessment and plan: Mild by imaging with previous surgical intervention for lumbar degenerative disc disease and radicular symptoms. See above Subjective Subjective Patient reports: no new complaints, voiding w/o difficulty, bowel movement and afebrile; denies diarrhea, nausea, vomiting or shortness of breath Interval history since last seen: Bing states she is feeling stronger and would like to go to rehab to get stronger, she doesn't think home health PT will be enough for her. Exam Const General: cooperative, comfortable and no acute distress Nutritional Appearance: obese Orientation: alert, awake and oriented x3 HENMT Head: normal to inspection, normocephalic and atraumatic Eyes Eyelids: eyelids normal Pupils: PERRL EOM: EOM intact bilaterally Neck Neck: normal visual inspection Resp Effort & Inspection: normal respiratory effort Auscultation: clear to auscultation bilaterally Cardio Jugular venous pressure: no JVD Rhythm: regular rhythm GI Auscultation: normal bowel sounds Skin General skin exam: no rashes or lesions noted Neuro General: patient alert, patient awake and patient oriented x3 Cognition: normal cognition Speech: speech normal Extrem General: full ROM and edema Psych Mental Status: mental status grossly normal Speech and Movement: speech and movement normal Mood: congruent mood Affect: normal affect Objective Last Vital Signs Temp 35.6 C L 01/03/23 15:19 Pulse 62 01/03/23 15:34 Resp 18 01/03/23 15:19 BP 108/73 01/03/23 15:19 Pulse Ox 98 01/03/23 15:19 Laboratory Results - last 24 hr 01/01/23 01/03/23 01/03/23 17:20 05:50 05:50 WBC 4.93 RBC 2.99 L Hgb 10.0 L Hct 30.3 L MCV 101 H MCH 33.4 H MCHC 33.0 RDW 12.3 Plt Count 139 MPV 9.5 Immature Gran % 0.6 Neutrophils % 67.2 Lymphocytes % 24.3 Monocytes % 5.3 Eosinophils % 1.8 Basophils % 0.8 Nucleated RBC % 0.0 Absolute Neutrophils 3.31 Absolute Lymphocytes 1.20 Absolute Monocytes 0.26 Absolute Eosinophils 0.09 Absolute Basophils 0.04 Sodium 140 Potassium 4.0 Chloride 103 Carbon Dioxide 25.5 Anion Gap 11.5 H BUN 25 H Creatinine 1.1 H Est GFR (CKD-EPI 2020) 56.81 Glucose 84 Hemoglobin A1c Calcium 9.3 Magnesium 1.3 L Creatine Kinase Lyme Disease Antibody Negative 01/03/23 01/03/23 05:50 05:50 WBC RBC Hgb Hct MCV MCH MCHC RDW Plt Count MPV Immature Gran % Neutrophils % Lymphocytes % Monocytes % Eosinophils % Basophils % Nucleated RBC % Absolute Neutrophils Absolute Lymphocytes Absolute Monocytes Absolute Eosinophils Absolute Basophils Sodium Potassium Chloride Carbon Dioxide Anion Gap BUN Creatinine Est GFR (CKD-EPI 2020) Glucose Hemoglobin A1c 5.0 Calcium Magnesium Creatine Kinase 9 L Lyme Disease Antibody Time Spent with Patient Time Spent with Patient: 25-34 minutes Time was spent: preparing to see the patient(eg.review tests), obtaining and/or reviewing separately otained hiistory, ordering medications,tests, procedures, referring, communicating with other health property caretaker, indepentently interpreting results, counseling the patient and care coordination
[2023-01-03] MEDS: Calcium Carbonate *TUMS* 500 MG CHEW 2000 MG PO (20:41)
[2023-01-04] VITALS (7 sets, daily range): BP systolic 104–118; BP diastolic 70–78; PULSE 63–86; RESP 17–18; TEMP 36–36.7; O2SAT 95–98
[2023-01-04 06:45] LABS: Abs Immature Grans 0.04 10^3/uL (0.0-0.06); Absolute Basophil Count 0.03 10^3/uL (0.0-0.2); Absolute Eosinophil Count 0.18 10^3/uL (0.0-0.7); Absolute Lymphocyte Count 0.74 10^3/uL (1.2-3.4); Absolute Monocyte Count 0.24 10^3/uL (0.1-0.8); Absolute Neutrophil Count 4.61 10^3/uL (1.2-6.7); Basophils % 0.5; Eosinophils % 3.1; HCT 30.9 % (36.0-46.0); HGB 10.5 g/dL (11.2-15.7); Immature Grans % 0.7; Lymphocytes % 12.7; MCH 34.7 pg (27.0-33.0); MCV 102 fL (80-95); MPV 9.2 fL (8.0-11.0); Monocytes % 4.1; Neutrophils % 78.9; Platelet Count 131 10^3/uL (130-400); RBC 3.03 10^6/uL (3.93-5.22); RDW 12.6 % (11.7-14.6); RDW-SD 45.9 fL; WBC 5.84 10^3/uL (4.4-10.8)
[2023-01-04 06:51] LABS: Anion Gap 10.3 mmol/L (3-11); BUN 23 mg/dL (7-18); CO2 25.7 mmol/L (21.0-32.0); CREATININE 1.1 mg/dL (0.55-1.02); Chloride 103 mmol/L (98-107); Estimated GFR 56.81 (mL/min/1.73m2); Glucose 88 mg/dL (74-106); Magnesium 1.8 mg/dL (1.8-2.4); Sodium 139 mmol/L (136-145)
[2023-01-04] MEDS: Enoxaparin 40 MG/0.4 ML SYR SC (08:54)
[2023-01-04] MEDS: Spironolactone 50 MG TAB PO (08:56)
[2023-01-04] MEDS: Atenolol 50 MG TAB PO (08:56)
[2023-01-04] MEDS: Cholecalciferol (Vitamin D3) 400 UNIT TAB PO (08:57)
[2023-01-04] MEDS: Omeprazole 20 MG CAPCR 40 MG PO (08:57)
[2023-01-04] MEDS: Doxycycline Hyclate 100 MG CAP PO (08:57)
[2023-01-04] MEDS: Aspirin 81 MG CHEW PO (08:58)
[2023-01-04] MEDS: Cyanocobalamin 500 MCG TAB PO (08:58)
[2023-01-04] MEDS: Folic Acid 1 MG TAB PO (08:58)
[2023-01-04] MEDS: NIFEdipine-CR 30 MG TABCR PO (08:58)
--- NOTE | 2023-01-04 10:25 | OT.INIE ---
Occupational Therapy Notes Inpatient Occupational Therapy Evaluation Date: 01/04/23 Referring Doctor: OT Orders: Non urgent Precautions: Fall, standard, full PATIENT PROFILE/ADMITTING DIAGNOSIS: Pt is a 62 year old female who was admitted through the ED with the following dx of spinal stenosis of the lumbar region, pernicious anemia, hyperlipidemia, essential HTN, spondylothistesis of L5-S1, folic acid deficiency, psoriasis, sleep apnea, syncope, skin lesion, rhinosinusitis, generalized weakness, frequent falls, polyneuropathy, ataxia. Past Medical History: All Active Problems?(Updated 01/02/23 @ 00:47 by Jasvir Jorge) Spinal stenosis of lumbar region (Chronic) Pernicious anemia (Acute 09/26/06) pernHyperlipidemia (Acute) Headache (Acute 09/26/04) w/vision problems; MRI-demyelination areas vs. sm. vessel disease;MRI 09/01-? of small aneurysm @[facility] clinoids and L ICA 2020- optical migraines- Dr Adams ([facility]) Gastroesophageal reflux disease with esophagitis (Acute) Essential hypertension (Acute) Pedal edema (Acute) 12/2020 Echo- EF 60%, Mildly dilated ascending aorta measuring 3.34 cmSpondylolisthesis at L5-S1 level (Acute) xray 2002-thoracic DJD; L5 spondylo w/Grade II;spondylolisthesis L5 on S1 Surgery 05/16- spinal fusion? DHMCFolic acid deficiency (Acute) Psoriasis (Chronic) steroids topical as neededSleep apnea (Acute) CPAP since 2019Skin lesion (Acute) Rhinosinusitis (Acute) Generalized weakness (Acute) Frequent falls (Acute) Polyneuropathy (Acute) Ataxia (Acute) Medical History? Alcohol intoxication HTN (hypertension) Lactic acid acidosis Non-toxic uninodular goiter thyroid cyst-removed by Dr. Flores 1999 Syncope UTI (urinary tract infection) UTI (urinary tract infection) Surgical History? Cholecystectomy Status post cholecystectomy Social History/Home Situation: Pt states that she lives in a private home with her . She notes that she sleeps downstairs in a twin sized bed. She utilizes a FWW and cane for mobility but notes that she has multiple places set up along her route inside her home similar to furniture surfing. She has a tub shower which she notes she has some difficulty getting in and out of the tub. She does not that her performs most of her home care tasks and home maintenance throughout. Equipment owned/DME: [employer] [facility] SUBJECTIVE: Pt states that she is doing well but notes that she is waiting to be seen for her medication this morning and notes that she is fairly (I) at this time but does need help. OBJECTIVE: General Observation: Pleasant, IV in (L) UE Mental Status: A&Ox3 ROM: RUE AROM WFL L UE AROM WFL STRENGTH: RUE 4/5 throughout LUE 3+/5 throughout BALANCE: Static sitting Normal Dynamic Sitting Good SPECIAL TESTS: Daily Activity Limitations Standardized Measure [facility] AM PAC ?6 clicks? Daily Activity Inpatient Short Form: Raw score: 18 INFORMED CONSENT/EDUCATION: Pt instructed in purpose of OT Consult and plan of care. ASSESSMENT: Patient is a 62-year-old female referred to occupational therapy services with diagnosis of spinal stenosis of the lumbar region, pernicious anemia, hyperlipidemia, essential HTN, spondylothistesis of L5-S1, folic acid deficiency, psoriasis, sleep apnea, syncope, skin lesion, rhinosinusitis, generalized weakness, frequent falls, polyneuropathy, ataxia. Patient presents with clinical signs and symptoms consistent with dx, as demonstrated by the following impairment level findings/functional limitations: Impairments in ADL/IADL And leisure activities, decreased gross motor of (B) UE, decreased functional mobility required for ADL performance, pain with ADLs and functional mobility, decreased functional activity tolerance. Patient is assessed as a Moderate 26081 complexity based on the following: History: see above Examination: see functional limitations as noted above Presentation: evolving Decision Making: moderate complexity GOALS Goals x1 week 1. Grooming- (I) with oral hygiene in seated position 2. Dressing seated mod (I) 3. Bathing seated (I) 4. Toileting on commode (I) 5. Eating (I) PLAN OF CARE/TREATMENT PLAN: 1x/day, 5 days/ week x 1week Initiate Occupational Therapy Services for bathing, dressing, grooming, toileting, eating, transfer training. DISCHARGE RECOMMENDATIONS OT recommends that pt go to SNF for short term stay when medically cleared per MD. DME needs/recommendations include: [employer]- To increase pts safety with toileting routines during the night time and conservation of pts energy for safety with ADL/IADL routines. Grab bars- in shower for (A) and support of pt when transferring in and out of her bathtub to promote increased safety Shower bench- to extend out of the tub for increased (I) with tub transfer and shower safety throughout TREATMENT TIME/MINUTES/CODES 31143, 20 minutes (08:50) Lita Drew, OTR/L [facility]
[2023-01-04 10:56] LABS: Homocysteine 29.1 umol/L (5.0-13.9)
--- NOTE | 2023-01-04 12:21 | PT.INTREAT ---
Date of service: 01/04/23 Time of Service: 11:28 PT Notes Visit Reasons: Generalized weakness with ataxia Inpatient Physical Therapy Treatment Note [facility] Date: 01/04/2023 PRECAUTIONS: Activity as tolerated, fall SUBJECTIVE: Bing is pleasant and agreeable to participating in PT. She reports that she continues to feel weak, however, does feel better. She is glad that she has been accepted at [facility]. OBJECTIVE: PAIN: Patient c/o pain in B wrists/hands BED MOBILITY/TRANSFERS Sit-stand: SBA Stand-sit: SBA GAIT Assistive Device: FWW Weight bearing: Full Assist: SBA Distance: 200' in a.m.; 100' x2 in p.m. Deviation: Improved pacing, fatigue, ataxic gait (increasing in p.m.), seated rest in p.m. STAIRS: Up/down 3x4 and 2x6 using B rails and a step-to pattern with SBA ASSESSMENT: Patient tolerated a progression in gait distance with FWW support and SBA. she continues to demonstrate global weakness and ataxic gait. PLAN: Continue with global strengthening and general conditioning for improved activity tolerance and mobility. TREATMENT CODE/TIME: Session 1: 30 minutes; 45965 x2 (11:28) Session 2: 25 minutes; 91503 x2 (14:40)
--- NOTE | 2023-01-04 12:46 | W.PM.DS.N ---
Date of service: 01/04/23 Time of Service: 12:46 DS: Diagnosis Discharge Diagnosis (1) Generalized weakness: Status: Acute (2) Frequent falls: Status: Acute (3) Polyneuropathy: Status: Acute (4) Spinal stenosis of lumbar region: Status: Chronic Discharge Plan Disposition Patient Disposition: Jail Facility(SNF) Condition: Stable Condition: Improving Discharge Details Reason For Visit: Generalized weakness with ataxia Admit Date/Time: 01/01/23 22:08 Admit Provider: Jasvir Jorge Attending Provider: Jasvir Jorge Primary Care Provider: Philip Romero Hospital Course Hospital Course: This is a 62 year old female who presented to the ED with a 1-2+ year decline in ambulation worse in the last months and weeks. She was seen by neurology who reports her neurological exam is consistent with a peripheral neuropathy.? Her ambulation and findings are complicated by lumbar spine disease, ETOH use, obesity, significant LE edema, as well as chronic deconditioning.? SPEP, Tick panel, B1 pending. Recommendations include: -outpatient NCS/EMG of the UE to look for neuropathy vs compressive mononueropathy vs both -work-up and treatment of her LE edema by her per primary care team -PT for strengthening and to work on balance.? -long-term goals of weight loss and ETOH reduction - she states she will stop drinking ETOH completely -She should follow-up in the neurology clinic in the next few weeks for NCS/EMG. She has remained medically stable and slowly progressing here with PT, case management has been following and referrals placed for skilled rehabilation as she remains unsafe for discharge to home. she has been accepted to [facility] and rehab. she was placed on doxycycline while tick panel pending. can discontinue if negative. discussed with DR Mason. Home Meds and New Rx's Prescriptions: New doxycycline hyclate 100 mg Capsule 100 mg PO BID Qty: 24 0RF Continued mometasone 0.1 % ointment 1 applic TP DAILY PRN (Reason: skin irritation) Qty: 45 5RF benzonatate 100 mg capsule 100 - 200 mg PO TID PRN (Reason: cough) Qty: 30 0RF Rx Instructions: Take 1-2 capsules by mouth three times a day as needed for cough milk thistle 500 MG capsule 2 cap PO DAILY cyanocobalamin (vitamin B-12) [Vitamin B-12] 500 MCG tablet 1 tab PO DAILY calcium carbonate [Tums] 200 MG tablet,chewable 4 tab PO DAILY cholecalciferol (vitamin D3) [Vitamin D3] 400 UNIT tablet 1 tab PO DAILY aspirin [Aspirin Low-Strength] 81 MG tablet,chewable 81 mg PO DAILY omeprazole 40 MG capsule,delayed release(DR/EC) 40 mg PO BID Qty: 180 coenzyme Q10 [Co Q-10] 100 MG capsule 100 mg PO DAILY 30 Days Qty: 30 0RF folic acid 1 mg tablet 1 mg PO DAILY Qty: 90 4RF atenolol 50 mg tablet 50 mg PO DAILY Qty: 90 4RF spironolactone 50 mg tablet 50 mg PO QAM Qty: 90 4RF nifedipine 30 mg tablet extended release 30 mg PO DAILY Qty: 90 4RF Discharge Instructions Instructions: Weakness (DC) Stand Alone Forms: Nursing Discharge Form Activity:: Activity as Tolerated Equipment/Supplies:: Walker Diet:: As Tolerated Discharge Orders Discharge Orders: Discharge Order (Routine); Ordered 01/04/23 Ordered By: Sherrell Manuel DS: Summary Time Spent with Patient providing and/or coordinating discharge services: Greater than 30 minutes Status at Discharge Functional status at discharge: uses cane/walker Overall status at discharge: patient is not back to baseline Mental Status: mental status grossly normal Speech and Movement: speech and movement normal Mood: congruent mood Affect: normal affect Exam Const General: cooperative, comfortable and no acute distress Nutritional Appearance: obese Orientation: alert, awake and oriented x3 HENMT Head: normal to inspection, normocephalic and atraumatic Eyes Eyelids: eyelids normal Pupils: PERRL EOM: EOM intact bilaterally Neck Neck: normal visual inspection Resp Effort & Inspection: normal respiratory effort Auscultation: clear to auscultation bilaterally Cardio Jugular venous pressure: no JVD Rhythm: regular rhythm GI Auscultation: normal bowel sounds Skin General skin exam: no rashes or lesions noted Neuro General: patient alert, patient awake and patient oriented x3 Cognition: normal cognition Speech: speech normal Extrem General: full ROM and edema Psych Mental Status: mental status grossly normal Speech and Movement: speech and movement normal Mood: congruent mood Affect: normal affect DS: Data Vitals/I&O Vitals and I&O: Vital Signs Temperature 36.0 C L 01/04/23 11:07 Temperature Source Tympanic 01/04/23 11:07 Pulse 78 01/04/23 11:31 Pulse Rhythm Regular 01/04/23 10:48 Pulse 73 01/02/23 16:40 Respiratory Rate 17 01/04/23 11:07 Respiratory Effort Normal, Non-Labored 01/03/23 21:14 Respiratory Depth Normal 01/03/23 21:14 Respiratory Pattern Normal 01/03/23 21:14 Blood Pressure 104/72 01/04/23 11:07 Blood Pressure Mean 69 01/02/23 16:31 Blood Pressure Position Supine 01/01/23 10:07 Pulse Oximetry 98 01/04/23 11:07 Oxygen Delivery Method Room Air 01/04/23 11:07 Oxygen Flow Rate 0 01/04/23 11:07 Pain Level 6 01/04/23 11:07 Intake & Output 01/03/23 01/04/23 01/04/23 23:59 11:59 23:59 Intake Total 492 / 492 Output Total 450 / 450 Balance -450 / 280 492 / 492 Intake: IV 492 / 492 Output: Urine 450 / 450 Other: Urine Color Yellow Yellow Urine Appearance Clear Urine Odor Normal Voiding Methods Bedside Commode Toilet Data Completed and Pending Labs on day of discharge: Labs from last 24 hours 01/04/23 01/04/23 01/02/23 06:01 06:01 08:30 WBC 5.84 RBC 3.03 L Hgb 10.5 L Hct 30.9 L MCV 102 H MCH 34.7 H MCHC 34.0 RDW 12.6 Plt Count 131 MPV 9.2 Immature Gran % 0.7 Neutrophils % 78.9 Lymphocytes % 12.7 Monocytes % 4.1 Eosinophils % 3.1 Basophils % 0.5 Nucleated RBC % 0.0 Absolute Neutrophils 4.61 Absolute Lymphocytes 0.74 L Absolute Monocytes 0.24 Absolute Eosinophils 0.18 Absolute Basophils 0.03 Sodium 139 Potassium 4.0 Chloride 103 Carbon Dioxide 25.7 Anion Gap 10.3 BUN 23 H Creatinine 1.1 H Est GFR (CKD-EPI 2020) 56.81 Glucose 88 Calcium 9.0 Magnesium 1.8 Homocysteine 29.1 H PFSH All Active Problems (Updated 01/02/23 @ 00:47 by Jasvir Jorge) Spinal stenosis of lumbar region (Chronic) Pernicious anemia (Acute 09/26/06) pern Hyperlipidemia (Acute) Headache (Acute 09/26/04) w/vision problems; MRI-demyelination areas vs. sm. vessel disease;MRI 09/01-? 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 [facility] [place] Folic acid deficiency (Acute) Psoriasis (Chronic) steroids topical as needed Sleep apnea (Acute) CPAP since 2018 Skin lesion (Acute) Rhinosinusitis (Acute) Generalized weakness (Acute) Frequent falls (Acute) Polyneuropathy (Acute) Ataxia (Acute) Medical History Alcohol intoxication HTN (hypertension) Lactic acid acidosis Non-toxic uninodular goiter thyroid cyst-removed by Dr. Flores 1999 Syncope UTI (urinary tract infection) UTI (urinary tract infection) Surgical History Cholecystectomy Status post cholecystectomy Family History Mother , age 48 Breast cancer Father , age 90 Stomach cancer Sister No problems noted. Brother No problems noted. Brother No problems noted. Brother No problems noted. Maternal Grandmother , in her 80s No problems noted. Paternal Grandmother , in her 80s No problems noted. Other Syncope Social History Smoking/Tobacco Use Status: Never Smoking risk assessment performed?: Yes Alcohol Intake: current Alcohol Intake frequency: 0-2 drinks per day Alcohol type: beer, wine and hard liquor Drug use: Never Caregiver/Support person: No Household members: spouse Housing: house Communication Needs: None Do you need help understanding health information?: Never Pets and animals: No Sexually active: No Do you think of yourself as: straight/heterosexual Current gender identity: female What is your relationship status?: How often do you talk on the phone with friends or family?: three or more times per week How often do you get together with friends or relatives?: once per week How often do you attend congregational or rastafarian services?: 1-3 times per year Do you belong to any clubs or organized social groups?: yes Panel score (0-1 are the most socially isolated patients): 3 What type of physical activity do you participate in: none Jodee/Scientology: Religion Special jodee needs: No Seatbelt use: always Drive intox 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 route delivery driver: No Do you feel safe at home: Yes Do you feel safe in your relationship?: Yes Time Spent with Patient Time Spent with Patient: 45-69 minutes Time was spent: preparing to see the patient(eg.review tests), obtaining and/or reviewing separately otained hiistory, ordering medications,tests, procedures, referring, communicating with other health customer care voice consultant, indepentently interpreting results and care coordination
[2023-01-04 13:14] LABS: Albumin 49.3 % (55.8-66.1); Albumin g/dL 2.8 g/dL (3.6-5.2); Total Protein 5.7 g/dL (6.3-8.2)
[2023-01-04] MEDS: Acetaminophen 325 MG TAB PO (13:51)
--- NOTE | 2023-01-04 16:01 | RESPIRATORY ---
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 Home settings Auto CPAP 6-16. Patient wears nasal pillows size medium.
--- NOTE | 2023-01-04 16:31 | CHAPLAIN ---
Bing was up in the chair when I visited. She was pleasant and easily engaged in a conversation. She told me about her problems ambulating, the numbness in her feet, and now in her hands, with a burning sensation as well. She said she knows that others have worse problems, but this has been unsettling for her as it hasn't yet been determined what is causing this. She may be discharged to rehab as early as today. Bing lives in [place] with her , who she said is a strong support for her. A nephew, his and three daughters live next door and Bing talked about how much she enjoys spending time with the girls and is grateful that the are involved in her life. She suggested to her that he not visit today, after working half a day. She said he is older than she is, but continues to work to keep insurance for her. 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
--- NOTE | 2023-01-04 16:54 | CMDISCH_ITS ---
- If Service Date Differs Date of service: 01/04/23 Time of Service: 16:54 LACE Index Scoring Tool - Questions: Length of Stay (in days): 3 Acuity (Admit via E.D.?): Yes E.D. Visits: 1 - Answers: Total Score: 7 Risk of Readmission: Low Risk Care Management Discharge Reason for Hospitalization: Polyneuropathy, Ataxia Discharge Plan: Bing will transfer to [facility] for short term rehab today, prior to returning home. CM spoke to Erica from [facility], who requested that Bing's stay be observation, which will be approved. Erica also confirmed the PA for the SNF stay. She will transport via [facility] private vehicle. She will follow up with her PCP and discharge plan of care. Bing is very happy to be going to rehab, and is motivated to improve quickly. She is appreciative of the care she has received at [facility]. Patient/Family Education Needs: Review discharge instructions and limitations, discussion of self care needs including ask me three. Services Needed at Discharge: Transportation ([facility])
--- NOTE | 2023-01-04 16:55 | SUR.PHASEI ---
Discharge Pt discharge to Rehab via wheel chair, alert and oriented. IV hep lock removed. Pain 5/10 Thigh high teds on. Belongings including c pap returned to patient. Report given to Anjali Alonso [phone]
[2023-01-05 16:06] LABS: Anaplasma phagocytophilum Negative (Negative); B. miyamotoi PCR Negative (Negative); Babesia divergens/MO-1 Negative (Negative); Babesia duncani Negative (Negative); Babesia microti Negative (Negative); Ehrlichia chaffeensis Negative (Negative); Ehrlichia ewingii/canis Negative (Negative); Ehrlichia muris eauclairensis Negative (Negative)
[2023-01-06 01:29] LABS: Thiamine (Vitamin B1), WB 53 nmol/L (70-180)
[2023-01-06 16:09] LABS: Methylmalonic Acid 0.11 nmol/mL (<=0.40)
--- NOTE | 2023-01-07 08:33 | INDS_ITS ---
Date of service: 01/04/23 PT Notes Visit Reasons: Generalized weakness with ataxia Physical Therapy Inpatient Discharge Summary Date: 01/04/2023 Dates of service: 01/02/2023 through 01/04/2023 This is a clinical summary of care provided for the duration of dates listed above. No charge was made in the completion of this documentation. Referring Doctor:? Jasvir Jorge MD PT Orders: PT CONSULT: Limited ability Precautions: Fall. Standard. Activity as tolerated. Patient Profile/Admitting Diagnosis:? Bing is a 62-year-old R-hand dominant female who presented to the ED on 01/01/2023 due to generalized weakness,? difficulty with walking,? worsening pain and tingling in B UE and LE worse in the hands and the feet.? Patient is admitted for further assessment and monitoring of generalized weakness,? ataxia,? polyneuropathy,? and spinal stenosis of lumbar region. MRI of cervical spine: Degenerative disc changes at C6-7 causing mild narrowing of the AP dimension of the central canal and mild bilateral neural foraminal narrowing.. Cord signal normal. MRI of lumbar spine: 1. Compared to the prior MRI scan of 03/10/2020 there has been interval tri level fusion surgery L4-5-S1.? No evidence of hardware loosening, discitis, osteomyelitis, nor epidural abscess.? No paraspinal abscess. 2. At the L3-4 level which is 1 level above the fusion there has been new onset increased annular bulging which results in an element of mild moderate central stenosis, without a distinct disc herniation.? There is no foraminal stenosis on either side at this level. 3. L5-S1 level there is again noted 9 millimeters anterolisthesis L5 upon S1 and advanced disc space narrowing.? Although the AP dimensions of the canal are increased, the anterior recesses are carried forward and there is again noted vertical foraminal stenosis bilaterally with impingement of the exiting nerve roots bilaterally at this level between the overlying L5 pedicles and the subjacent pseudo herniation of the annulus (which was also previously present in February 2020). MRI of Brain: There are multiple foci of Liliana and supra ventricular signal abnormality most probably consistent with chronic small vessel disease.? Cannot exclude demyelinating disease and inflammatory causes.? Nevertheless, there is no restricted diffusion to suggest acute ischemic event. CT of Lumbar spine: 1. Multilevel hardware as described above, similar to prior studies. 2. Anterolisthesis L5 upon S1 again noted, unchanged.? There is bilateral vertical foraminal stenosis at this level which is causing impingement of the exiting nerve roots bilaterally at this level. 3.? Although it is difficult to visualize the spinal canal at the levels of the hardware, there does appear to be an element of central canal stenosis above the fusion levels, most prominent at L3-4 level where there appears to be moderate central spinal canal stenosis. No fractures.? No evidence of osteomyelitis.? No paraspinal fluid collections. PMHX: All Active Problems?(Updated 01/02/23 @ 00:47 by Jasvir Jorge) Spinal stenosis of lumbar region (Chronic) Pernicious anemia (Acute 09/26/06) Hyperlipidemia (Acute) Headache (Acute 09/26/04) w/vision problems; MRI-demyelination areas vs. sm. vessel disease;MRI 09/01-? of small aneurysm @L clinoids and L ICA 2020- optical migraines- Dr Adams ([facility]) Gastroesophageal reflux disease with esophagitis (Acute) Essential hypertension (Acute) Pedal edema (Acute) 12/2020 Echo- EF 60%, Mildly dilated ascending aorta measuring 3.34 cm Spondylolisthesis at L5-S1 level (Acute) xray 2002-thoracic DJD; L5 spondylo w/Grade II;spondylolisthesis L5 on S1 Surgery 05/16- spinal fusion? [facility] (Ac[facility]) Psoriasis (Chronic) steroids topical as needed Sleep apnea (Acute) CPAP since 2018Skin lesion (Acute) Rhinosinusitis (Acute) Generalized weakness (Acute) Frequent falls (Acute) Polyneuropathy (Acute) Ataxia (Acute) Medical History? Alcohol intoxication HTN (hypertension) Lactic acid acidosis Non-toxic uninodular goiter thyroid cyst-removed by Dr. Flores 1999 Syncope UTI (urinary tract infection) UTI (urinary tract infection) Surgical History? Cholecystectomy Status post cholecystectomy Social History/Home Situation: Lives with in a priavte home with 2 steps to enter with rails on B sides.? works during the day.? Patient has needed the use of the canes or walker in the past several days due to increasing weakness and difficulty with walking.? 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 Equipment Owned/DME: FWW, SPC Subjective: NT. See most recent OTR REFRIGERATED CDL TRUCK DRIVER notes. Objective: General Observation: NT. See most recent OTR REFRIGERATED CDL TRUCK DRIVER notes. Mental Status: NT. See most recent OTR REFRIGERATED CDL TRUCK DRIVER notes. Pain: NT. See most recent OTR REFRIGERATED CDL TRUCK DRIVER notes. Vital Signs: NT. See most recent OTR REFRIGERATED CDL TRUCK DRIVER notes. ROM: Right Upper Extremity: ? Shoulder Flexion WFL. Shoulder abduction WFL. Elbow flexion WFL. Wrist flexion WFL. Functional opening and closing of hand WFL. Left Upper Extremity:? Shoulder Flexion WFL. Shoulder abduction WFL. Elbow flexion WFL. Wrist flexion WFL. Functional opening and closing of hand WFL. Right Lower Extremity: Hip flexion WFL. Hip abduction WFL. Knee flexion WFL. Ankle dorsiflexion WFL. Ankle plantarflexion WFL. Left Lower Extremity: Hip flexion WFL. Hip abduction WFL. Knee flexion WFL. Ankle dorsiflexion WFL. Ankle plantarflexion WFL. Strength: Right Upper Extremity: Shoulder flexors 4-/5. Shoulder abductors 4-/5. Elbow flexors 4-/5. Elbow extensors 4-/5. Therapeutic Recreation Assistant weak but functional. Left Upper Extremity: Shoulder flexors 4-/5. Shoulder abductors 4-/5. Elbow flexors 4-/5. Elbow extensors 4-/5. Therapeutic Recreation Assistant weak but functional. Right Lower Extremity: Hip flexors 4-/5. Hip abductors 4-/5. Knee flexors 4-/5. Knee extensors 4-/5. Ankle dorsiflexors 4-/5. Ankle plantarflexors 4/5. Left Lower Extremity: Hip flexors 4-/5. Hip abductors 4-/5. Knee flexors 4-/5. Knee extensors 4-/5. Ankle dorsiflexors 4-/5. Ankle plantarflexors 4/5. BED MOBILITY/TRANSFERS? Sit-stand: SBA? Stand-sit: SBA ? GAIT? Assistive Device: FWW ? Weight bearing: Full Assist: SBA ? Distance: 200' in a.m.; 100' x2 in p.m. ? Deviation: Improved pacing, fatigue, ataxic gait (increasing in p.m.), seated rest in p.m. STAIRS: Up/down 3x4 and 2x6 using B rails and a step-to pattern with SBA Balance: Static Sitting: Good Dynamic Sitting: Good Static Standing: Fair Dynamic Standing: Fair Special Tests: Mobility Limitations Standardized Measure [facility] AM-PAC 6 clicks Basic Mobility Inpatient Short Form: Raw Score: 18? CMS Score: 47% deficit ? NEURO TESTIN-stage balance test:? Unable to do all 4 positions (feet together,? semi- tandem, full tandem, one-legged stance) for 10 seconds. Romberg Test: Deferred for now Finger to finger pointing: Impaired using index finger on each side at a time,? R more affected than L Toe tapping: Impaired in B feet R more affected than the L L2 myotome 4-/5 L3 myotome 4-/5 L4 myotome 4-/5 L5 myotome 4-/5 S1 myotome 4-/5 Normotonic throughout B UE/LE Speech clear Informed Consent/Education:? Patient was instructed in purpose of PT consult and plan of care. Agreeable to proceed with established PT POC to achieve personal goals. Assessment: No muscle atrophy noted in B UE/LE.? Normotonic in B UE/LE.? Strength deficit minimal and symmetric.? Rapid alternating movement impaired in B UE and LE but worse in B LE.? Grasp weak but functional on B sides.? Activity tolerance significantly decreased.? Anxiety now increased with ongoing symptoms, limiting her ability to move. UE and LE coordination impaired. Patient presents with clinical signs and symptoms consistent with current/admitting diagnoses that have resulted to mobility limitations, gait instability, generalized weakness, and overall ADL decline as demonstrated by the following impairment level findings: 1.? Decreased strength to B UE/LE major muscle groups 2.? Impaired standing balance 3.? Impaired walking and standing tolerance 4.? Decreased proprioception in B hands affecting grasp 5.? Decreased proprioception in B feet affecting safety of ambulation 6.? Swelling to B legs Impairments are contributing to the following functional limitations: 1.? Decline in bed mobility skills 2.? Decline in transfer skills 3.? Difficulty with ambulation without assistive device and physical assistance 4.? Increased completion time for mobility ADL performance 5.? Increased risk for falls 6.? Difficulty with managing steps alone safely 7.? [facility] mobility deficit score of 51% Goals: Goals X1 week 1. Supine-Sit independent NOT MET 2. Sit-Supine independent NOT MET 3. Sit-Stand independent NOT MET NOT MET 4. Stand-Sit independent with FWW NOT MET 5. Bed-Chair independent with FWW NOT MET 6. Chair-Bed independent with FWW NOT MET 7. Supervision gait on level surface with use of FWW for at least 200 feet without report of pain nor dyspnea NOT MET 8. Supervision stair negotiation while holding onto [] rails for at least [] steps without report of pain nor dyspnea NOT MET 9. Supervision with home exercise program NOT MET 10. Good static and dynamic standing balance/tolerance NOT MET Plan of Care/Treatment Plan: 1-2x/day, 7 days/week x 1 week. Plan of care has been reviewed with the OTR REFRIGERATED CDL TRUCK DRIVER providing the service under Physical Therapy direction. Initiate Physical Therapy intervention for pain management as needed, strengthening, bed mobility, transfers, gait, stairs, balance training, and use of assistive device. DISCHARGE RECOMMENDATIONS: [] ? Home with no services [] [] ? Home with services [specify] [] ? Home with outpatient PT [] [X] ? SNF for continued rehabilitation [] ? County Records Management Officer Care [] [] ? SNF versus LTC based on ability to participate and progress [] TREATMENT CODE/TIME: MC Thank you for the opportunity to participate in the care of this patient. Chelsie Crews PT, DPT, CLT [facility] [place], [place]
--- NOTE | 2023-01-07 08:43 | OTDS_ITS ---
Occupational Therapy Notes Occupational Therapy Inpatient Discharge Summary Date: 01/07/23 Dates of Service: 01/04/23 Referring Doctor: OT Orders: Non urgent Precautions: Fall, standard, full *This document serves as a summary of care, no skilled OT services were provided for this documentation on this date, this is a reflection of initial evaluation as no further services were provided prior to discharge* PATIENT PROFILE/ADMITTING DIAGNOSIS: Pt is a 62 year old female who was admitted through the ED with the following dx of spinal stenosis of the lumbar region, pernicious anemia, hyperlipidemia, essential HTN, spondylothistesis of L5-S1, folic acid deficiency, psoriasis, sleep apnea, syncope, skin lesion, rhinosinusitis, generalized weakness, frequent falls, polyneuropathy, ataxia. Past Medical History: All Active Problems?(Updated 01/02/23 @ 00:47 by Jasvir Jorge) Spinal stenosis of lumbar region (Chronic) Pernicious anemia (Acute 09/26/06) pernHyperlipidemia (Acute) Headache (Acute 09/26/04) w/vision problems; MRI-demyelination areas vs. sm. vessel disease;MRI 09/01-? 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 [place]) Psoriasis (Chronic) steroids topical as neededSleep apnea (Acute) CPAP since 2018Skin lesion (Acute) Rhinosinusitis (Acute) Generalized weakness (Acute) Frequent falls (Acute) Polyneuropathy (Acute) Ataxia (Acute) Medical History? Alcohol intoxication HTN (hypertension) Lactic acid acidosis Non-toxic uninodular goiter thyroid cyst-removed by Dr. Flores 1999 Syncope UTI (urinary tract infection) UTI (urinary tract infection) Surgical History? Cholecystectomy Status post cholecystectomy Social History/Home Situation: Pt states that she lives in a private home with her . She notes that she sleeps downstairs in a twin sized bed. She utilizes a FWW and cane for mobility but notes that she has multiple places set up along her route inside her home similar to furniture surfing. She has a tub shower which she notes she has some difficulty getting in and out of the tub. She does not that her performs most of her home care tasks and home maintenance throughout. Equipment owned/DME: FWW, cane SUBJECTIVE:??N/A OBJECTIVE:? BALANCE: ? Static sitting Normal Dynamic Sitting Good ?? ? INFORMED CONSENT/EDUCATION: Pt instructed in purpose of OT Consult and plan of care. ASSESSMENT:?? Patient is a? 62-year-old female referred to occupational therapy services with diagnosis of spinal stenosis of the lumbar region, pernicious anemia, hyperlipidemia, essential HTN, spondylothistesis of L5-S1, folic acid deficiency, psoriasis, sleep apnea, syncope, skin lesion, rhinosinusitis, generalized weakness, frequent falls, polyneuropathy, ataxia. Patient was seen for OT consult only and then discharged to [facility]hab for short term stay. GOALS- Not met seen for OT consult only 1.? Grooming- (I) with oral hygiene in seated position 2.? Dressing seated mod (I) 3.? Bathing seated (I) 4.? Toileting on commode (I) 5.? Eating (I) PLAN OF CARE/TREATMENT PLAN: Discharged 01/04/23 to [facility] for continued care. DISCHARGE RECOMMENDATIONS OT recommends that pt go to SNF for short term stay when medically cleared per MD. DME needs/recommendations include: Commode- To increase pts safety with toileting routines during the night time and conservation of pts energy for safety with ADL/IADL routines. Grab bars- in shower for (A) and support of pt when transferring in and out of her bathtub to promote increased safety Shower bench- to extend out of the tub for increased (I) with tub transfer and shower safety throughout TREATMENT TIME/MINUTES/CODES N/A Lita Drew, OTR/L [facility]
== END 2023-01-04 16:57 | disposition skilled nursing facility (03) ==
LOC: ER 01-02 10:52 → MS 01-02 16:51
PROVIDERS: Internal Medicine; Nurse Practitioner Family; Psychiatry & Neurology Neurology; Student in an Organized Health Care Education/Training Program; Admitting Provider Family Medicine; Emergency Provider Emergency Medicine; PCP Nurse Practitioner Family; Visit Provider Family Medicine
DX: R53.1 Weakness (principal); G62.9 Polyneuropathy, unspecified; R27.8 Other lack of coordination; Z79.899 Other long term (current) drug therapy; Z98.1 Arthrodesis status; E53.8 Deficiency of other specified B group vitamins; E78.5 Hyperlipidemia, unspecified; R20.2 Paresthesia of skin; G47.30 Sleep apnea, unspecified; Z20.822 Contact with and (suspected) exposure to COVID-19; K21.9 Gastro-esophageal reflux disease without esophagitis; R60.0 Localized edema; R29.6 Repeated falls; R90.89 Other abnormal findings on diagnostic imaging of central nervous system; M48.061 Spinal stenosis, lumbar region without neurogenic claudication; R73.03 Prediabetes; N18.9 Chronic kidney disease, unspecified; I12.9 Hypertensive chronic kidney disease with stage 1 through stage 4 chronic kidney disease, or unspecified chronic kidney disease; E66.9 Obesity, unspecified; Z68.41 Body mass index [BMI] 40.0-44.9, adult
CPT/HCPCS: 36415; 80048; 80053; 80186; 82550; 83090; 85027; 85652; 87635; 87798; 96361; 96365; 96366; 96372; 96375; 97110; 97162; 97165; 97530; 99285; J1650; 70450; 70551; 72131; 72141; 72148; 82607; 82746; 83036; 83735; 84165; 84425; 84443; 85025; 86140; 86618; 93306; 99223; 99232; 99239; J1100; J3475; J3490

== ENCOUNTER 2024-01-17 11:03 | Inpatient (IN) | payer OTHER, SELFPAY ==
[2024-01-17] VITALS (7 sets, daily range): BP systolic 93–138; BP diastolic 59–89; PULSE 65–88; RESP 15–21; TEMP 36–36.4; O2SAT 96–99
--- NOTE | 2024-01-17 11:29 | W.ED.GENAD ---
Discharge Plan Disposition Patient Disposition: Home Condition: Serious Discharge Details Clinical Impression: Acute metabolic encephalopathy, Acute hyponatremia, Hypomagnesemia Primary Care Provider: Philip Romero ED Provider: Aster Abad General Date/Time Provider Initiated Documentation: 01/17/24 11:08. HPI Narrative: This 60-year-old female with history of neuromuscular disorder, pernicious anemia, hypertension, wheelchair dependent presents with report of confusion which started approximately 3 days ago. Patient's states she awoke from bed 3 nights ago and was confused, thought she could walk which she has not walked in many years per . also states that her recall had changed. Denies any falls or new medications. Does have home health involvement which is the only new thing in patient's schedule. Patient states that she feels confused. Denies any pain complaints or shortness of breath. Denies any fever or chills. Related Data Home Medications Medication Instructions Recorded Confirmed calcium carbonate 200 mg calcium 4 tab PO DAILY 02/10/13 01/17/24 (500 mg) chewable tablet (Tums) cholecalciferol (vitamin D3) 10 1 tab PO DAILY 02/10/13 01/17/24 mcg (400 unit) tablet (Vitamin D3) milk thistle 500 mg capsule 2 cap PO DAILY 02/10/13 01/17/24 omeprazole 40 mg capsule,delayed 40 mg PO BID #180 tab-caps 02/03/16 01/17/24 release benzonatate 100 mg capsule 100 - 200 mg (1 - 2 x 100 mg) PO 10/12/22 01/17/24 TID PRN cough #30 caps mometasone 0.1 % topical ointment 1 applic topical DAILY PRN skin 01/21/23 01/17/24 irritation #45 grams atenolol 50 mg tablet See Rx Instructions .Route 11/25/23 01/17/24 .COMPLEX #90 tabs folic acid 1 mg tablet See Rx Instructions .Route 11/25/23 01/17/24 .COMPLEX #90 tabs Previous Rx's Medication Instructions Recorded benzonatate 100 mg capsule 100 - 200 mg (1 - 2 x 100 mg) PO 10/12/22 TID PRN cough #30 caps mometasone 0.1 % topical ointment 1 applic topical DAILY PRN skin 01/21/23 irritation #45 grams atenolol 50 mg tablet See Rx Instructions .Route 11/25/23 .COMPLEX #90 tabs folic acid 1 mg tablet See Rx Instructions .Route 11/25/23 .COMPLEX #90 tabs Allergies Allergy/AdvReac Type Severity Reaction Status Date / Time oxycodone Allergy Intermediate Anaphylaxis Unverified 01/17/24 11:17 sucralfate Allergy Intermediate Itching Unverified 01/17/24 11:17 furosemide Allergy Mild Anaphylaxis Unverified 01/17/24 11:17 hydrochlorothiazide Allergy Mild Anaphylaxis Unverified 01/17/24 11:17 influenza A (H5N1) virus AdvReac Anaphylaxis Unverified 01/17/24 11:17 vaccine mo General Stated Complaint: AMS/LOC MAURICIO: 3 Course Vital Signs Vital signs: Vital Signs Temperature 36.4 C L 01/17/24 11:09 Pulse 88 01/17/24 11:09 Respiratory Rate 16 01/17/24 11:09 Blood Pressure 113/89 01/17/24 11:09 Pulse Oximetry 98 01/17/24 11:09 Temperature 36.4 C L 01/17/24 11:09 Pulse 88 01/17/24 11:09 Respiratory Rate 16 01/17/24 11:19 Respiratory Effort Normal 01/17/24 11:19 Respiratory Depth Normal 01/17/24 11:19 Respiratory Pattern Normal 01/17/24 11:19 Blood Pressure 113/89 01/17/24 11:09 Pulse Oximetry 98 01/17/24 11:09 Oxygen Delivery Method Room Air 01/17/24 11:09 Oxygen Flow Rate 0 01/17/24 11:09 Pain Level 0 01/17/24 11:09 Medical Decision Making This 63-year-old female presents with confusion for the past 3 days Patient is alert and oriented x 2 patient confused regarding date, this is unusual reportedly, and able to follow all basic commands, strength and sensation equal and symmetrical and at patient's reported baseline, Júnior dependent No visible sign of trauma, lungs clear to auscultation bilaterally, cardiac rate rhythm regular, 1+ edema to bilateral lower extremities, no abdominal tenderness, no rebound or guarding vital stable GCS 15, pupils equal round reactive to light and accommodation, moist mucous membranes, uvula midline, negative [id number] Given comorbidities documented history, order diagnostic labs, CT head, chest x-ray Hyponatremia, 126, hypomagnesemia 1.2, metabolic encephalopathy, Schneider catheter placed as patient is bedbound, sodium chloride initiated at 100 cc an hour Per hospital request, serum osmolality and serum sodium ordered for further evaluation of hyponatremia CT head per radiology interpretation my review does not show evidence of acute abnormality, no change in mentation, alert and oriented x 2 throughout this encounter Alcohol negative, low suspicion for detox Urinalysis pending Previous echo in December of last year ejection Fraction 60%, spent approximately 5 minutes reviewing patient's prior medical history Case discussed with Dr. Nicholas, will admit to his service in the hospital Vitals remained stable Quality:[facility] Health Related Social Needs: No Data to Display Critical Care Time Critical Care Time Attestation: Approximately 35 minutes of critical care time secondary to acute metabolic encephalopathy secondary to likely electrolyte abnormality, supplementation with normal saline and IV magnesium, telemetry monitoring, and admission to the hospital for metabolic encephalopathy, CT interpretation and review, diagnostic lab interpretation and review PFSH All Active Problems (Updated 01/17/24 @ 14:54 by SENDY Steiner) Hypomagnesemia (Acute) Acute hyponatremia (Acute) Acute metabolic encephalopathy (Acute) Pernicious anemia (Acute 09/26/06) pern Hyperlipidemia (Acute) Headache (Acute 09/26/04) w/vision problems; MRI-demyelination areas vs. sm. vessel disease;MRI 09/01-? 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 [facility] [place] Folic acid deficiency (Acute) Psoriasis (Chronic) steroids topical as needed Sleep apnea (Acute) CPAP since 2018 Skin lesion (Acute) Rhinosinusitis (Acute) Generalized weakness (Acute) Frequent falls (Acute) Polyneuropathy (Acute) Ataxia (Acute) Spinal stenosis of lumbar region (Chronic) Medical History UTI (urinary tract infection) Syncope Alcohol intoxication Lactic acid acidosis UTI (urinary tract infection) HTN (hypertension) Non-toxic uninodular goiter thyroid cyst-removed by Dr. Flores 1999 Surgical History Status post cholecystectomy Cholecystectomy Family History Mother , age 48 Breast cancer Father , age 90 Stomach cancer Sister No problems noted. Brother No problems noted. Brother No problems noted. Brother No problems noted. Maternal Grandmother , in her 80s No problems noted. Paternal Grandmother , in her 80s No problems noted. Other Syncope Social History Smoking/Tobacco Use Status: Never Smoking risk assessment performed?: Yes Alcohol Intake: current Alcohol Intake frequency: 0-2 drinks per day Alcohol type: beer, wine and hard liquor Drug use: Never Caregiver/Support person: No Household members: spouse Housing: house Communication Needs: None Do you need help understanding health information?: Never Pets and animals: No Sexually active: No Do you think of yourself as: straight/heterosexual Current gender identity: female What is your relationship status?: How often do you talk on the phone with friends or family?: three or more times per week How often do you get together with friends or relatives?: once per week How often do you attend rastafari or roman catholic services?: 1-3 times per year Do you belong to any clubs or organized social groups?: yes Panel score (0-1 are the most socially isolated patients): 3 What type of physical activity do you participate in: none Jodee/Synagogue: Church Special jodee needs: No Seatbelt use: always Drive intox 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
--- NOTE | 2024-01-17 11:45 | RT.EKG_ITS ---
APPROVED REPORT Exam: Resting ECG Reason for Exam: weakness Patient Location: E HR:73 bpm ECG Measurements Heart Rate 73 AXIS WI 240 P 1 QRSd 84 QRS -4 QT 387 T 18 QTc 427 Conclusion Sinus rhythm 73 first degree block, pr 240 no stemi
--- NOTE | 2024-01-17 11:47 | DI.RAD_ITS ---
Exam(s) XR CHEST 2V PA LATERAL EXAM: XR CHEST 2V PA LATERAL CLINICAL HISTORY: ams. TECHNIQUE: 2D digital imaging was performed. COMPARISON: CR,XR XR PORTABLE CHEST AP from 09/23/2021 FINDINGS: 2 views: Moderate cardiomegaly again noted. Mediastinum not widened. Lungs are clear. No infiltrates nor pleural effusions. IMPRESSION: No acute pulmonary findings.Cardiomegaly again noted. DATA REPOSITORY: RADIATION DOSE DELIVERED:
[2024-01-17 12:06] LABS: Lactate 1.7 mmol/L (0.6-1.4)
[2024-01-17 12:07] LABS: Abs Immature Grans 0.05 10^3/uL (0.0-0.06); Absolute Basophil Count 0.02 10^3/uL (0.0-0.2); Absolute Eosinophil Count 0.02 10^3/uL (0.0-0.7); Absolute Lymphocyte Count 0.46 10^3/uL (1.2-3.4); Absolute Monocyte Count 0.17 10^3/uL (0.1-0.8); Absolute Neutrophil Count 3.22 10^3/uL (1.2-6.7); Basophils % 0.5; Eosinophils % 0.5; HCT 35.4 % (36.0-46.0); HGB 12.2 g/dL (11.2-15.7); Immature Grans % 1.3; Lymphocytes % 11.7; MCH 32.7 pg (27.0-33.0); MCHC 34.5 % (32.0-36.0); MCV 95 fL (80-95); MPV 9.2 fL (8.0-11.0); Monocytes % 4.3; Neutrophils % 81.7; Platelet Count 105 10^3/uL (130-400); RBC 3.73 10^6/uL (3.93-5.22); RDW 12.7 % (11.7-14.6); RDW-SD 43.8 fL; WBC 3.94 10^3/uL (4.4-10.8)
[2024-01-17 12:27] LABS: Ammonia < 10 umol/L (11-32)
[2024-01-17 12:28] LABS: ETHANOL BLOOD < 3.0 mg/dL (<10)
[2024-01-17 12:29] LABS: ALT 24 U/L (14-59); AST 32 U/L (15-37); Albumin 3.4 g/dL (3.4-5.0); Alkaline Phosphatase 130 U/L (46-116); Anion Gap 10.6 mmol/L (3-11); BUN 12 mg/dL (7-18); Bilirubin, Total 0.9 mg/dL (0.2-1.0); CO2 25.4 mmol/L (21.0-32.0); CREATININE 0.8 mg/dL (0.55-1.02); Calcium 10.3 mg/dL (8.5-10.1); Chloride 90 mmol/L (98-107); Estimated GFR 82.74 (mL/min/1.73m2); Glucose 109 mg/dL (74-106); Magnesium 1.2 mg/dL (1.8-2.4); Potassium 4.9 mmol/L (3.5-5.1); Sodium 126 mmol/L (136-145); Total Protein 8.3 g/dL (6.4-8.2); Troponin I < 50 ng/L (< or =60)
[2024-01-17 12:37] LABS: TSH (W/Ref FT4) 3.44 uIU/mL (0.36-3.74)
--- NOTE | 2024-01-17 12:50 | DI.CT_ITS ---
Exam(s) CT HEAD WO EXAM: CT HEAD WO CLINICAL HISTORY: confusion, ams. TECHNIQUE: Imaging Protocol: Axial computed tomography images with coronal and sagittal reformatted images were created and reviewed COMPARISON: CT CT HEAD WO from 01/01/2023 FINDINGS: Ventricles and Extra axial spaces: Normal in size and morphology for the degree atrophy.. Hemorrhage: None. Cerebral parenchyma: No evidence of acute infarct or mass. Mild atrophy. White matter changes again noted consistent with small vessel disease. Somewhat prominent for the patient's age. Midline shift: None. Brainstem/Cerebellum: Normal. Calvarium: Normal. Visualized Paranasal sinuses:Clear. Mastoids: Clear. Soft Tissues: Unremarkable. ORBITS: Unremarkable. PITUITARY: Not enlarged. IMPRESSION: No acute intracranial process. RADIATION DOSE DELIVERED: Total DLP DATA REPOSITORY: All CT scans at this facility are submitted to the National Radiology Data Registry (NRDR) Dose Index Registry (DIR) with the [employer] (ACR). RADIATION OPTIMIZATION: All CT scans at this facility use at least one of these dose optimization te chniques: automated exposure control; mA and/or kV adjustment per patient size (includes targeted exa ms where dose is matched to clinical indication); or iterative reconstruction.
--- NOTE | 2024-01-17 13:20 | W.PM.HP.N ---
Date of service: 01/17/24 Time of Service: 13:20 Assessment and Plan Assessment and plan (1) Acute metabolic encephalopathy: Status: Acute Assessment and plan: Most likely due to symptomatic hyponatremia Admit to the medical surgical unit Replete sodium while closely monitoring (2) Acute hyponatremia: Status: Acute (3) Spondylolisthesis at L5-S1 level: Status: Acute (4) Essential hypertension: Status: Acute Assessment and plan: Continue atenolol and monitor (5) Pernicious anemia: Status: Acute Assessment and plan: hemoglobin stable. (6) Gastroesophageal reflux disease with esophagitis: Status: Acute Assessment and plan: Takes omeprazole 40 mg twice daily (7) Sleep apnea: Status: Acute Assessment and plan: Home CPAP at night (8) Hypomagnesemia: Status: Acute Assessment and plan: Likely secondary to long-term omeprazole use Replete and follow History of Present Illness History of Present Illness Chief Complaint: altered mental status Narrative: Patient presents to the emergency department with acute onset of confusion over the last 3 days. No reports of trauma fever or infection. Workup in the emergency department included a head CT which had no acute intracranial findings. Labs showed sodium at 126. Sodium repletion was initiated with normal saline at 100 an hour. No etiology for her hyponatremia obvious. She will be admitted to the hospitalist services for further management and monitoring. Review of Systems All systems reviewed & are unremarkable except as noted in HPI and below PFSH All Active Problems (Updated 01/17/24 @ 14:54 by SENDY Steiner) Hypomagnesemia (Acute) Acute hyponatremia (Acute) Acute metabolic encephalopathy (Acute) Pernicious anemia (Acute 09/26/06) pern Hyperlipidemia (Acute) Headache (Acute 09/26/04) w/vision problems; MRI-demyelination areas vs. sm. vessel disease;MRI 09/01-? 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 [facility] [place] Folic acid deficiency (Acute) Psoriasis (Chronic) steroids topical as needed Sleep apnea (Acute) CPAP since 2019 Skin lesion (Acute) Rhinosinusitis (Acute) Generalized weakness (Acute) Frequent falls (Acute) Polyneuropathy (Acute) Ataxia (Acute) Spinal stenosis of lumbar region (Chronic) Medical History UTI (urinary tract infection) Syncope Alcohol intoxication Lactic acid acidosis UTI (urinary tract infection) HTN (hypertension) Non-toxic uninodular goiter thyroid cyst-removed by Dr. Flores 1999 Surgical History Status post cholecystectomy Cholecystectomy Family History Mother , age 48 Breast cancer Father , age 90 Stomach cancer Sister No problems noted. Brother No problems noted. Brother No problems noted. Brother No problems noted. Maternal Grandmother , in her 80s No problems noted. Paternal Grandmother , in her 80s No problems noted. Other Syncope Social History Smoking/Tobacco Use Status: Never Smoking risk assessment performed?: Yes Alcohol Intake: current Alcohol Intake frequency: 0-2 drinks per day Alcohol type: beer, wine and hard liquor Drug use: Never Caregiver/Support person: No Household members: spouse Housing: house Communication Needs: None Do you need help understanding health information?: Never Pets and animals: No Sexually active: No Do you think of yourself as: straight/heterosexual Current gender identity: female What is your relationship status?: How often do you talk on the phone with friends or family?: three or more times per week How often do you get together with friends or relatives?: once per week How often do you attend restorationist or cheondoism services?: 1-3 times per year Do you belong to any clubs or organized social groups?: yes Panel score (0-1 are the most socially isolated patients): 3 What type of physical activity do you participate in: none Jodee/Christianity: Buddhism Special jodee needs: No Seatbelt use: always Drive intox 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 Do you feel safe at home: Yes Do you feel safe in your relationship?: Yes Meds Allergies and Home Medications Allergies Allergy/AdvReac Type Severity Reaction Status Date / Time oxycodone Allergy Intermediate Anaphylaxis Unverified 01/17/24 11:17 sucralfate Allergy Intermediate Itching Unverified 01/17/24 11:17 furosemide Allergy Mild Anaphylaxis Unverified 01/17/24 11:17 hydrochlorothiazide Allergy Mild Anaphylaxis Unverified 01/17/24 11:17 influenza A (H5N1) virus AdvReac Anaphylaxis Unverified 01/17/24 11:17 vaccine mo Home Medications Medication Instructions Recorded Confirmed Type calcium carbonate 200 mg calcium 4 tab PO DAILY 02/10/13 01/17/24 History (500 mg) chewable tablet (Tums) cholecalciferol (vitamin D3) 10 1 tab PO DAILY 02/10/13 01/17/24 History mcg (400 unit) tablet (Vitamin D3) milk thistle 500 mg capsule 2 cap PO DAILY 02/10/13 01/17/24 History benzonatate 100 mg capsule 100 - 200 mg (1 - 2 x 100 mg) PO 10/12/22 01/17/24 Rx TID PRN cough #30 caps mometasone 0.1 % topical ointment 1 applic topical DAILY PRN skin 01/21/23 01/17/24 Rx irritation #45 grams atenolol 50 mg tablet See Rx Instructions .Route 11/25/23 01/17/24 Rx .COMPLEX #90 tabs folic acid 1 mg tablet See Rx Instructions .Route 11/25/23 01/17/24 Rx .COMPLEX #90 tabs famotidine 20 mg tablet 20 mg PO BID #60 tabs 01/20/24 Rx magnesium gluconate 27 mg 500 mg (18.5185 x 27 mg magnesium 01/20/24 Rx magnesium (500 mg) tablet (500 mg)) PO DAILY #30 tabs Exam Const General: cooperative, comfortable and no acute distress Nutritional Appearance: obese Orientation: alert, awake and confused (poor historian) [facility] Head: normal to inspection, normocephalic and atraumatic Eyes Eyelids: eyelids normal Pupils: PERRL EOM: EOM intact bilaterally Neck Neck: normal visual inspection Resp Effort & Inspection: normal respiratory effort Auscultation: clear to auscultation bilaterally Cardio Jugular venous pressure: no JVD Rhythm: regular rhythm GI Auscultation: normal bowel sounds Skin Lesions: lesion noted (left lower extremity, see wound care notes on description) Rashes: no rashes Neuro General: patient alert and patient awake Speech: speech normal Extrem General: full ROM and edema Psych Mental Status: mental status grossly normal Speech and Movement: speech and movement normal Mood: congruent mood Affect: normal affect Results Labs 01/18/24 07:10 01/20/24 08:50 Labs: Laboratory Results - last 24 hr 01/17/24 01/17/24 11:51 12:05 WBC 3.94 L RBC 3.73 L Hgb 12.2 Hct 35.4 L MCV 95 MCH 32.7 MCHC 34.5 RDW 12.7 Plt Count 105 L MPV 9.2 Immature Gran % 1.3 Neutrophils % 81.7 Lymphocytes % 11.7 Monocytes % 4.3 Eosinophils % 0.5 Basophils % 0.5 Nucleated RBC % 0.0 Absolute Neutrophils 3.22 Absolute Lymphocytes 0.46 L Absolute Monocytes 0.17 Absolute Eosinophils 0.02 Absolute Basophils 0.02 VBG Lactate 1.7 H Sodium 126 L Potassium 4.9 Chloride 90 L Carbon Dioxide 25.4 Anion Gap 10.6 BUN 12 Creatinine 0.8 Est GFR (CKD-EPI 2020) 82.74 Glucose 109 H Calcium 10.3 H Magnesium 1.2 L Total Bilirubin 0.9 AST 32 ALT 24 Alkaline Phosphatase 130 H Ammonia < 10 L Troponin I < 50 Total Protein 8.3 H Albumin 3.4 TSH 3.44 Ethyl Alcohol < 3.0 Last Vital Signs Temp 36.4 C L 01/17/24 11:09 Pulse 65 01/17/24 12:31 Resp 15 01/17/24 12:31 BP 138/85 01/17/24 12:31 Pulse Ox 98 01/17/24 11:09 PAWSS Have you Been Recently Intoxicated or Drunk Within the Last 30 days?: No Have you Ever Experienced Previous Episodes of Alcohol Withdrawal?: No Result: 0 Time Spent Time spent with Patient: 40-54 minutes Time was spent: preparing to see the patient(eg.review tests), obtaining and/or reviewing separately otained hiistory, ordering medications,tests, procedures, indepentently interpreting results and counseling the patient
[2024-01-17] MEDS: MAGNESIUM SULFATE 2 GM/50 ML BAG IVPB ×2 (14:02→18:11)
[2024-01-17 14:07] LABS: Bilirubin Negative (Negative); Blood Trace-intact (Negative); Clarity Cloudy (Clear); Glucose Negative (Negative); Ketones Negative (Negative); Leukocyte Esterase Large (Negative); Nitrite Negative (Negative); Specific Gravity 1.015 (1.005-1.025); Urobilinogen >=8.0 mg/dL (Up to 0.2)
[2024-01-17 14:14] LABS: Sodium, Urine 74 mmol/L
[2024-01-17 14:19] LABS: *AMPHETAMINES SCREEN URINE Negative (Negative); *BARBITURATES SCREEN URINE Negative (Negative); *BENZODIAZEPINES SCREEN URINE Negative (Negative); Bacteria Many HPF (Negative); C & S Indicated? No/Sq. Contamination; Cannabinoids THC Negative (Negative); Casts Negative LPF (Negative); Cocaine Screen,Urine Negative (Negative); Crystals Negative HPF (Negative); Epithelial Cells Many HPF (Negative); METHADONE URINE SCREEN Negative (Negative); Mucus Negative (Negative); OPIATES URINE SCREEN Negative (Negative); RBC 0-2 HPF (0-2); WBC >50 HPF (0-5)
[2024-01-17 14:24] LABS: Tricyclic Antidepressants Negative (Negative)
[2024-01-17 16:18] LABS: Anion Gap 7.8 mmol/L (3-11); BUN 11 mg/dL (7-18); CO2 25.2 mmol/L (21.0-32.0); CREATININE 0.7 mg/dL (0.55-1.02); Calcium 9.4 mg/dL (8.5-10.1); Chloride 88 mmol/L (98-107); Estimated GFR 97.12 (mL/min/1.73m2); Glucose 126 mg/dL (74-106); Potassium 4.2 mmol/L (3.5-5.1)
[2024-01-17 16:23] LABS: Sodium 121 mmol/L (136-145)
[2024-01-17] MEDS: Normal Saline Flush 10 ML SYR IVP ×2 (16:31→21:00)
[2024-01-17] MEDS: Normal Saline 1,000 ML 100 ML IV (16:31)
[2024-01-17 17:33] LABS: Creatinine,Urine 74.54 mg/dL
[2024-01-17] MEDS: Nystatin POWDER 15 GM JAR TP (19:00)
[2024-01-17 21:53] LABS: Osmolality, Urine 318 mOsm/kg (150-1150)
[2024-01-17 21:55] LABS: Anion Gap 8.9 mmol/L (3-11); BUN 12 mg/dL (7-18); CO2 24.1 mmol/L (21.0-32.0); CREATININE 0.9 mg/dL (0.55-1.02); Calcium 9.1 mg/dL (8.5-10.1); Chloride 90 mmol/L (98-107); Estimated GFR 71.83 (mL/min/1.73m2); Glucose 142 mg/dL (74-106); Potassium 4.3 mmol/L (3.5-5.1)
[2024-01-17 22:02] LABS: Sodium 123 mmol/L (136-145)
[2024-01-18 01:25] LABS: Anion Gap 7.3 mmol/L (3-11); BUN 13 mg/dL (7-18); CO2 24.7 mmol/L (21.0-32.0); CREATININE 0.7 mg/dL (0.55-1.02); Calcium 8.8 mg/dL (8.5-10.1); Chloride 92 mmol/L (98-107); Estimated GFR 97.12 (mL/min/1.73m2); Glucose 108 mg/dL (74-106); Potassium 4.3 mmol/L (3.5-5.1)
[2024-01-18 01:30] LABS: Sodium 124 mmol/L (136-145)
[2024-01-18] MEDS: Normal Saline 1,000 ML 100 ML IV ×3 (02:53→23:05)
[2024-01-18 05:52] LABS: Anion Gap 8.1 mmol/L (3-11); BUN 13 mg/dL (7-18); CO2 23.9 mmol/L (21.0-32.0); CREATININE 0.7 mg/dL (0.55-1.02); Calcium 8.5 mg/dL (8.5-10.1); Chloride 94 mmol/L (98-107); Estimated GFR 97.12 (mL/min/1.73m2); Glucose 101 mg/dL (74-106); Potassium 4.2 mmol/L (3.5-5.1); Sodium 126 mmol/L (136-145)
[2024-01-18 05:53] LABS: Abs Immature Grans 0.03 10^3/uL (0.0-0.06); Absolute Basophil Count 0.01 10^3/uL (0.0-0.2); Absolute Eosinophil Count 0.03 10^3/uL (0.0-0.7); Absolute Lymphocyte Count 0.58 10^3/uL (1.2-3.4); Absolute Monocyte Count 0.25 10^3/uL (0.1-0.8); Absolute Neutrophil Count 2.76 10^3/uL (1.2-6.7); Basophils % 0.3; Eosinophils % 0.8; HCT 24.1 % (36.0-46.0); Immature Grans % 0.8; Lymphocytes % 15.8; MCH 32.9 pg (27.0-33.0); MCHC 34.4 % (32.0-36.0); MCV 96 fL (80-95); MPV 8.9 fL (8.0-11.0); Magnesium 1.8 mg/dL (1.8-2.4); Monocytes % 6.8; Neutrophils % 75.5; RBC 2.52 10^6/uL (3.93-5.22); RDW 12.7 % (11.7-14.6); RDW-SD 44.8 fL; WBC 3.66 10^3/uL (4.4-10.8)
[2024-01-18 06:20] LABS: Platelet Count 99 10^3/uL (130-400)
[2024-01-18 06:23] LABS: HGB 8.3 g/dL (11.2-15.7)
[2024-01-18 07:22] LABS: Abs Immature Grans 0.02 10^3/uL (0.0-0.06); Absolute Basophil Count 0.01 10^3/uL (0.0-0.2); Absolute Eosinophil Count 0.04 10^3/uL (0.0-0.7); Absolute Lymphocyte Count 0.51 10^3/uL (1.2-3.4); Absolute Monocyte Count 0.33 10^3/uL (0.1-0.8); Basophils % 0.3; Eosinophils % 1.1; HCT 25.4 % (36.0-46.0); HGB 8.8 g/dL (11.2-15.7); Immature Grans % 0.6; Lymphocytes % 14.5; MCH 33.1 pg (27.0-33.0); MCHC 34.6 % (32.0-36.0); MCV 96 fL (80-95); MPV 9.1 fL (8.0-11.0); Monocytes % 9.4; Neutrophils % 74.1; Platelet Count 100 10^3/uL (130-400); RBC 2.66 10^6/uL (3.93-5.22); RDW 12.7 % (11.7-14.6); RDW-SD 44.4 fL; WBC 3.51 10^3/uL (4.4-10.8)
[2024-01-18 07:27] VITALS: BP 99/71; PULSE 61; RESP 16; TEMP 36.8; O2SAT 94
[2024-01-18] MEDS: Cholecalciferol (Vitamin D3) 400 UNIT TAB PO (08:19)
[2024-01-18] MEDS: Calcium Carbonate *TUMS* 500 MG CHEW 2000 MG PO (08:20)
[2024-01-18] MEDS: Folic Acid 1 MG TAB PO (08:23)
[2024-01-18] MEDS: Normal Saline Flush 10 ML SYR IVP ×2 (08:24→20:22)
[2024-01-18] MEDS: Nystatin POWDER 15 GM JAR TP ×2 (08:25→20:22)
--- NOTE | 2024-01-18 08:49 | PGE_ITS ---
Date of Service Date of service: 01/18/24 Time of Service: 08:49 Assessment and Plan Assessment and plan (1) Acute metabolic encephalopathy: Status: Acute Assessment and plan: -Most likely due to symptomatic hyponatremia as noted below (2) Acute hyponatremia: Status: Acute Assessment and plan: -initial Na level 126 in ED -decreased down to 121 as it was noted the NS that was ordered by ED provider was not initiatd in the ED, nor was it noticed unitl patient was seen by admitting PERIPHERAL EQUIPMENT OPERATOR -since that time, Na has slowly risen, and is up to 126 this AM -will contnue NS and monitor Na levels (3) Spondylolisthesis at L5-S1 level: Status: Acute (4) Essential hypertension: Status: Acute Assessment and plan: -Continue atenolol and monitor (5) Pernicious anemia: Status: Acute Assessment and plan: -hemoglobin decreased down to 8.8 this AM, though this is likely due to hemodilution -f/u AM CBC (6) Gastroesophageal reflux disease with esophagitis: Status: Acute Assessment and plan: -continue home omeprazole 40 mg twice daily (7) Sleep apnea: Status: Acute Assessment and plan: -Home CPAP at night (8) Hypomagnesemia: Status: Acute Assessment and plan: -Likely secondary to long-term omeprazole use -Replete and follow Subjective Subjective Interval history since last seen: Patient states that she feels better today but is still tired. She understands that we are continuing to monitor her sodium level and otherwise has no other complaints concerns at this time Exam Narrative Exam Narrative: Well-appearing older female laying in bed in no acute distress, ANO x 4, heart rate regular rhythm, lungs clear to auscultation bilaterally, abdomen soft, nontender, nondistended Objective Last Vital Signs Temp 98.2 F 01/18/24 07:27 Pulse 61 01/18/24 07:27 Resp 16 01/18/24 07:27 BP 99/71 L 01/18/24 07:27 Pulse Ox 94 01/18/24 07:27 Laboratory Results - last 24 hr 01/17/24 01/17/24 01/17/24 11:51 12:05 13:35 WBC 3.94 L RBC 3.73 L Hgb 12.2 Hct 35.4 L MCV 95 MCH 32.7 MCHC 34.5 RDW 12.7 Plt Count 105 L MPV 9.2 Immature Gran % 1.3 Neutrophils % 81.7 Lymphocytes % 11.7 Monocytes % 4.3 Eosinophils % 0.5 Basophils % 0.5 Nucleated RBC % 0.0 Absolute Neutrophils 3.22 Absolute Lymphocytes 0.46 L Absolute Monocytes 0.17 Absolute Eosinophils 0.02 Absolute Basophils 0.02 VBG Lactate 1.7 H Sodium 126 L Potassium 4.9 Chloride 90 L Carbon Dioxide 25.4 Anion Gap 10.6 BUN 12 Creatinine 0.8 Est GFR (CKD-EPI 2020) 82.74 Glucose 109 H Calcium 10.3 H Magnesium 1.2 L Total Bilirubin 0.9 AST 32 ALT 24 Alkaline Phosphatase 130 H Ammonia < 10 L Troponin I < 50 Total Protein 8.3 H Albumin 3.4 TSH 3.44 Urine Color Yellow Urine Clarity Cloudy Urine pH 7.0 Ur Specific [place] 1.015 Urine Protein Negative Urine Ketones Negative Urine Blood Trace-intact H Urine Nitrite Negative Urine Bilirubin Negative Urine Urobilinogen >=8.0 H Ur Leukocyte Esterase Large H Urine RBC 0-2 Urine WBC >50 H Ur Epithelial Cells Many Urine Crystals Negative Urine Bacteria Many Urine Casts Negative Urine Mucus Negative Ur Culture Indicated? No/Sq. Contamination Ur Random Creatinine Ur Random Sodium 74 Urine Glucose Negative Urine Opiates Screen Negative Urine Methadone Screen Negative Ur Barbiturates Screen Negative Ur Tricyclics Screen Negative Ur Amphetamines Screen Negative U Benzodiazepines Scrn Negative Urine Cocaine Screen Negative Ur THC Screen Negative Ethyl Alcohol < 3.0 01/17/24 01/17/24 01/17/24 15:55 17:12 20:00 WBC RBC Hgb Hct MCV MCH MCHC RDW Plt Count MPV Immature Gran % Neutrophils % Lymphocytes % Monocytes % Eosinophils % Basophils % Nucleated RBC % Absolute Neutrophils Absolute Lymphocytes Absolute Monocytes Absolute Eosinophils Absolute Basophils VBG Lactate Sodium 121 L* Cancelled Potassium 4.2 Chloride 88 L Carbon Dioxide 25.2 Anion Gap 7.8 BUN 11 Creatinine 0.7 Est GFR (CKD-EPI 2020) 97.12 Glucose 126 H Calcium 9.4 Magnesium Total Bilirubin AST ALT Alkaline Phosphatase Ammonia Troponin I Total Protein Albumin TSH Urine Color Urine Clarity Urine pH Ur Specific [place] Urine Protein Urine Ketones Urine Blood Urine Nitrite Urine Bilirubin Urine Urobilinogen Ur Leukocyte Esterase Urine RBC Urine WBC Ur Epithelial Cells Urine Crystals Urine Bacteria Urine Casts Urine Mucus Ur Culture Indicated? Ur Random Creatinine 74.54 Ur Random Sodium Urine Glucose Urine Opiates Screen Urine Methadone Screen Ur Barbiturates Screen Ur Tricyclics Screen Ur Amphetamines Screen U Benzodiazepines Scrn Urine Cocaine Screen Ur THC Screen Ethyl Alcohol 01/17/24 01/18/24 01/18/24 20:18 01:05 05:10 WBC 3.66 L RBC 2.52 L Hgb 8.3 L D Hct 24.1 L MCV 96 H MCH 32.9 MCHC 34.4 RDW 12.7 Plt Count 99 L MPV 8.9 Immature Gran % 0.8 Neutrophils % 75.5 Lymphocytes % 15.8 Monocytes % 6.8 Eosinophils % 0.8 Basophils % 0.3 Nucleated RBC % 0.0 Absolute Neutrophils 2.76 Absolute Lymphocytes 0.58 L Absolute Monocytes 0.25 Absolute Eosinophils 0.03 Absolute Basophils 0.01 VBG Lactate Sodium 123 L* 124 L* 126 L Potassium 4.3 4.3 4.2 Chloride 90 L 92 L 94 L Carbon Dioxide 24.1 24.7 23.9 Anion Gap 8.9 7.3 8.1 BUN 12 13 13 Creatinine 0.9 0.7 0.7 Est GFR (CKD-EPI 2020) 71.83 97.12 97.12 Glucose 142 H 108 H 101 Calcium 9.1 8.8 8.5 Magnesium 1.8 Total Bilirubin AST ALT Alkaline Phosphatase Ammonia Troponin I Total Protein Albumin TSH Urine Color Urine Clarity Urine pH Ur Specific [place] Urine Protein Urine Ketones Urine Blood Urine Nitrite Urine Bilirubin Urine Urobilinogen Ur Leukocyte Esterase Urine RBC Urine WBC Ur Epithelial Cells Urine Crystals Urine Bacteria Urine Casts Urine Mucus Ur Culture Indicated? Ur Random Creatinine Ur Random Sodium Urine Glucose Urine Opiates Screen Urine Methadone Screen Ur Barbiturates Screen Ur Tricyclics Screen Ur Amphetamines Screen U Benzodiazepines Scrn Urine Cocaine Screen Ur THC Screen Ethyl Alcohol 01/18/24 07:10 WBC 3.51 L RBC 2.66 L Hgb 8.8 L Hct 25.4 L MCV 96 H MCH 33.1 H MCHC 34.6 RDW 12.7 Plt Count 100 L MPV 9.1 Immature Gran % 0.6 Neutrophils % 74.1 Lymphocytes % 14.5 Monocytes % 9.4 Eosinophils % 1.1 Basophils % 0.3 Nucleated RBC % 0.0 Absolute Neutrophils 2.60 Absolute Lymphocytes 0.51 L Absolute Monocytes 0.33 Absolute Eosinophils 0.04 Absolute Basophils 0.01 VBG Lactate Sodium Potassium Chloride Carbon Dioxide Anion Gap BUN Creatinine Est GFR (CKD-EPI 2020) Glucose Calcium Magnesium Total Bilirubin AST ALT Alkaline Phosphatase Ammonia Troponin I Total Protein Albumin TSH Urine Color Urine Clarity Urine pH Ur Specific [place] Urine Protein Urine Ketones Urine Blood Urine Nitrite Urine Bilirubin Urine Urobilinogen Ur Leukocyte Esterase Urine RBC Urine WBC Ur Epithelial Cells Urine Crystals Urine Bacteria Urine Casts Urine Mucus Ur Culture Indicated? Ur Random Creatinine Ur Random Sodium Urine Glucose Urine Opiates Screen Urine Methadone Screen Ur Barbiturates Screen Ur Tricyclics Screen Ur Amphetamines Screen U Benzodiazepines Scrn Urine Cocaine Screen Ur THC Screen Ethyl Alcohol PAWSS Have you Been Recently Intoxicated or Drunk Within the Last 30 days?: No Have you Ever Experienced Previous Episodes of Alcohol Withdrawal?: No Result: 0 Time Spent with Patient Time Spent with Patient: >50 minutes Time was spent: preparing to see the patient(eg.review tests), obtaining and/or reviewing separately otained hiistory, ordering medications,tests, procedures, referring, communicating with other health career law clerk, indepentently interpreting results, counseling the patient and care coordination
[2024-01-18 09:38] LABS: Anion Gap 8.1 mmol/L (3-11); BUN 12 mg/dL (7-18); CO2 23.9 mmol/L (21.0-32.0); CREATININE 0.7 mg/dL (0.55-1.02); Calcium 8.6 mg/dL (8.5-10.1); Chloride 94 mmol/L (98-107); Estimated GFR 97.12 (mL/min/1.73m2); Glucose 120 mg/dL (74-106); Potassium 4.2 mmol/L (3.5-5.1); Sodium 126 mmol/L (136-145)
--- NOTE | 2024-01-18 12:08 | INITIAL_ITS ---
Date of service: 01/18/24 Care Management Initial Assmt Initial Assessment REASON FOR HOSPITALIZATION:: Metabolic encephalopathy, hyponatremia PREVIOUS FUNCTIONAL STATUS/SOCIAL/FAMILY SUPPORTS:: Bing lives in [place] with her Karthik, she was born in [place], [place]. They have been for 40+ years. They do have family that lives nearby. Bing requires some assistance at home . She receives services a few days a week. CURRENT FUNCTIONAL STATUS:: Bing was sitting up in bed eating when talking with CM. Bing says her stay at [facility] is due to confusion and muscle weakness that has been happening for awhile. She was pleasant and cheerful in her interaction laughing and asking questions. When attempting to share things, she would pause and not remember what she was saying or be able to complete a full thought. She says Karthik may not come back down today because of the weather conditions but she had talked to him on the phone. CM following. ADVANCE DIRECTIVES:: One file Has patient been provided with info about the portal/API?: Yes Did the patient sign up for the portal?: Yes CODE STATUS:: Full Code INSURANCE COVERAGE / FINANCIAL ISSUES:: [employer] (U IDs Only) CURRENT HOME/COMMUNITY SERVICES/EQUIPMENT:: Home Health PRIMARY CARE PHYSICIAN:: Philip Parker NP PATIENT/FAMILY EDUCATION NEEDS:: Review discharge instructions and limitations, discussion of self care needs including Ask Me Three ANTICIPATED BARRIERS TO DISCHARGE:: None TRANSPORTATION:: Via private vehicle by family. PLAN:: Bing will discharge home when medically cleared via private vehicle. She will follow up with her PCP and discharge plan of care. She will resume [facility]. CM following. PFSH All Active Problems (Updated 01/17/24 @ 14:54 by SENDY Steiner) Hypomagnesemia (Acute) Acute hyponatremia (Acute) Acute metabolic encephalopathy (Acute) Pernicious anemia (Acute 09/26/06) pern Hyperlipidemia (Acute) Headache (Acute 09/26/04) w/vision problems; MRI-demyelination areas vs. sm. vessel disease;MRI 09/01-? 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 [facility] [place] acid deficiency (Acute) Psoriasis (Chronic) steroids topical as needed Sleep apnea (Acute) CPAP since 2018 Skin lesion (Acute) Rhinosinusitis (Acute) Generalized weakness (Acute) Frequent falls (Acute) Polyneuropathy (Acute) Ataxia (Acute) Spinal stenosis of lumbar region (Chronic) Medical History UTI (urinary tract infection) Syncope Alcohol intoxication Lactic acid acidosis UTI (urinary tract infection) HTN (hypertension) Non-toxic uninodular goiter thyroid cyst-removed by Dr. Flores 1999 Surgical History Status post cholecystectomy Cholecystectomy Family History Mother , age 48 Breast cancer Father , age 90 Stomach cancer Sister No problems noted. Brother No problems noted. Brother No problems noted. Brother No problems noted. Maternal Grandmother , in her 80s No problems noted. Paternal Grandmother , in her 80s No problems noted. Other Syncope Social History Smoking/Tobacco Use Status: Never Smoking risk assessment performed?: Yes Alcohol Intake: current Alcohol Intake frequency: 0-2 drinks per day Alcohol type: beer, wine and hard liquor Drug use: Never Caregiver/Support person: No Household members: spouse Housing: house Communication Needs: None Do you need help understanding health information?: Never Pets and animals: No Sexually active: No Do you think of yourself as: straight/heterosexual Current gender identity: female What is your relationship status?: How often do you talk on the phone with friends or family?: three or more times per week How often do you get together with friends or relatives?: once per week How often do you attend yarsani or sabianist services?: 1-3 times per year Do you belong to any clubs or organized social groups?: yes Panel score (0-1 are the most socially isolated patients): 3 What type of physical activity do you participate in: none Jodee/Mosque: Taoism Special jodee needs: No Seatbelt use: always Drive intox 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 distribution driver: No Do you feel safe at home: Yes Do you feel safe in your relationship?: Yes SDOH(Care Management) Screening Will the Patient Participate in the Screening?: Unable to obtain
[2024-01-18 12:52] LABS: Anion Gap 8.5 mmol/L (3-11); BUN 13 mg/dL (7-18); CO2 22.5 mmol/L (21.0-32.0); CREATININE 0.8 mg/dL (0.55-1.02); Calcium 8.5 mg/dL (8.5-10.1); Chloride 94 mmol/L (98-107); Estimated GFR 82.74 (mL/min/1.73m2); Glucose 113 mg/dL (74-106); Potassium 4.2 mmol/L (3.5-5.1); Sodium 125 mmol/L (136-145)
[2024-01-18 15:22] VITALS: BP 93/57; PULSE 116; RESP 18; TEMP 37; O2SAT 92
[2024-01-18 23:01] VITALS: BP 90/63; PULSE 92; RESP 18; TEMP 36.6; O2SAT 97
[2024-01-19 07:41] VITALS: BP 120/81; PULSE 84; RESP 18; TEMP 36.3; O2SAT 95
[2024-01-19 08:01] LABS: BUN 11 mg/dL (7-18); CREATININE 0.6 mg/dL (0.55-1.02); Calcium 8.3 mg/dL (8.5-10.1); Chloride 98 mmol/L (98-107); Glucose 98 mg/dL (74-106); Magnesium 1.3 mg/dL (1.8-2.4); Potassium 4.1 mmol/L (3.5-5.1); Sodium 130 mmol/L (136-145)
[2024-01-19] MEDS: Normal Saline Flush 10 ML SYR IVP ×2 (08:18→21:10)
[2024-01-19] MEDS: Cholecalciferol (Vitamin D3) 400 UNIT TAB PO (08:21)
[2024-01-19] MEDS: Folic Acid 1 MG TAB PO (08:21)
[2024-01-19] MEDS: Atenolol 50 MG TAB PO (08:21)
[2024-01-19] MEDS: Calcium Carbonate *TUMS* 500 MG CHEW 2000 MG PO (08:21)
[2024-01-19] MEDS: Nystatin POWDER 15 GM JAR TP ×2 (08:25→21:10)
[2024-01-19] MEDS: Normal Saline 1,000 ML 100 ML IV ×2 (09:01→19:22)
[2024-01-19 15:50] VITALS: BP 121/87; PULSE 76; RESP 17; TEMP 35.7; O2SAT 95
--- NOTE | 2024-01-19 18:26 | W.PM.PROGNOT ---
Date of Service Date of service: 01/19/24 Time of Service: 18:26 Assessment and Plan Assessment and plan (1) Acute metabolic encephalopathy: Status: Acute Assessment and plan: -Most likely due to symptomatic hyponatremia as noted below -However, it appears patients mental status has improved, her believes she is not back to baseline -Will follow-up UA -Will continue to monitor mental status as patient may also have superimposed delirium (2) Acute hyponatremia: Status: Acute Assessment and plan: -initial Na level 126 in ED -decreased down to 121 as it was noted the NS that was ordered by ED provider was not initiatd in the ED, nor was it noticed unitl patient was seen by admitting POWER SAW OPERATOR -since that time, Na has slowly risen, and is up to 130 this AM -NS discontinued (3) Spondylolisthesis at L5-S1 level: Status: Acute (4) Essential hypertension: Status: Acute Assessment and plan: -Continue atenolol and monitor (5) Pernicious anemia: Status: Acute Assessment and plan: -hemoglobin decreased down to 8.8 this AM, though this is likely due to hemodilution -f/u AM CBC (6) Gastroesophageal reflux disease with esophagitis: Status: Acute Assessment and plan: -continue home omeprazole 40 mg twice daily (7) Sleep apnea: Status: Acute Assessment and plan: -Home CPAP at night (8) Hypomagnesemia: Status: Acute Assessment and plan: -Likely secondary to long-term omeprazole use -Replete and follow Subjective Subjective Interval history since last seen: Patient states that for she feels better today and would like to potentially go home. Otherwise she has no other complaints or concerns at this time. Exam Narrative Exam Narrative: Well-appearing older female laying in bed in no acute distress, ANO x 4, heart rate regular rhythm, lungs clear to auscultation bilaterally, abdomen soft, nontender, nondistended Objective Last Vital Signs Temp 96.3 F L 01/19/24 15:50 Pulse 76 01/19/24 15:50 Resp 17 01/19/24 15:50 BP 121/87 01/19/24 15:50 Pulse Ox 95 01/19/24 15:50 Laboratory Results - last 24 hr 01/19/24 07:40 Sodium 130 L Potassium 4.1 Chloride 98 Carbon Dioxide 24.0 Anion Gap 8.0 BUN 11 Creatinine 0.6 Est GFR (CKD-EPI 2020) 100.80 Glucose 98 Calcium 8.3 L Magnesium 1.3 L PAWSS Have you Been Recently Intoxicated or Drunk Within the Last 30 days?: No Have you Ever Experienced Previous Episodes of Alcohol Withdrawal?: No Result: 0 Time Spent with Patient Time Spent with Patient: >50 minutes Time was spent: preparing to see the patient(eg.review tests), obtaining and/or reviewing separately otained hiistory, ordering medications,tests, procedures, referring, communicating with other health critical care transport nurse, indepentently interpreting results, counseling the patient and care coordination
[2024-01-19 19:04] LABS: Bilirubin Negative (Negative); Blood Moderate (Negative); Clarity Turbid (Clear); Glucose Negative (Negative); Ketones Negative (Negative); Leukocyte Esterase Large (Negative); Nitrite Negative (Negative); Specific Gravity 1.025 (1.005-1.025)
[2024-01-19 19:17] LABS: C & S Indicated? Yes; WBC >50 HPF (0-5)
--- NOTE | 2024-01-19 22:47 | WOUNDCONS_ITS ---
Date of service: 01/19/24 Time of Service: 23:07 Wound Initial Evaluation Narrative Narrative: Patient is a 63 year old female admitted on 01/17/24 for metabolic encephalopathy most likely d/t hyponatremia. Patient is non-ambulatory with a BMI of 37.0. Patient comes from home with personal wheelchair which patient reported to this creative services writer she scraped her leg on. Besides the wound on the left lower extremity the patient has skin excoriations under bilateral breasts, and under the pannus with Nystatin powder scheduled for applications. The patient has redness on the sacrum with a foam border dressing to aid with protection. Due to the encephalopathy the patient may be a poor historian. The patient has a past medical history of pernicious anemia, sleep apnea and other chronic co-morbidities. Their is a Schneider catheter in place. Recent provider notes, labs, VS and allergies were reviewed. A wound photo consent was obtained and positioning assistance was provided from Yadi Nicholson RN. Wound Left Lower Extremity: Wound Type: Other (Stasis Ulcer with possible trauma component) Wound General Appearance: Reddened Wound Bed Greatest Portion: Red (Granulation) Wound Surrounding Tissue Appearance: [place] and Edges Rolled Percent of Wound Bed Granulated/Red: 95 Wound Length: 5.8 cm Wound Width: 3 cm Wound Drainage Amount: Moderate Wound Drainage Description: Bloody Wound Topical Solution/Irrigant: Other (wound wall cleaner) Wound Debridement Method: Gauze Wound Debridement Result: Healthy Tissue Revealed Wound Summary Wound Summary: Left lateral lower extremity with irregular shaped wound with rolled edges similar to a stasis ulcer. Hemosiderin staining surrounds the wound area on the lower leg. Patient reports the leg was scraped on the wheelchair. Considering a trauma component to the stasis ulcer. Educational topics including personal hygiene and frequent repositioning was discussed with the patient. Nystatin powder applied to skin on skin areas has improved redness and excoriations. Patient agreed that frequent repositioning and use of wedges and pillows will assist in preventing pressure injuries. Photo Photo: Treatment/Dressing Change Cleanse With: Other (Wound Embosser Operator) Dressing Types: Foam, Mepilex w/Border and Other (Maxsorb II AG) Dressing Comment: Maxsorb II AG cut to size and placed over wound bed. Medline Optifoam Gentle with foam border(5x5) placed over Maxsorb for securement. Additional Other Comments: Skin prep applied to harpreet wound area Nutrition Education Reviewed Nutrition Education: Yes Note: Patient reports that she tries to eat the protein portion of the Regular/Normal diet. Patient is aware that increased protein is optimal for wound healing. Recomendation Recomendation:: Every 3 Days and as needed Remove dressing, spray wound wall cleaner and allow to dwell for 2 minutes Pat dry with gauze Apply Skin Prep to intact harpreet wound area Cut Maxsorb II AG to cover wound bed (approx. 2x3in.) lay flat on wound bed Cover area with Medline Optifoam Gentle EX foam dressing and date Physcian/Nurse Practioner Notified: Yes Treatment Time Time Total Time Spent with Patient: 90 minutes
[2024-01-19 23:28] VITALS: BP 118/86; PULSE 73; RESP 18; TEMP 36; O2SAT 97
[2024-01-20] MEDS: Normal Saline 1,000 ML 100 ML IV (04:33)
[2024-01-20 07:15] VITALS: BP 126/74; PULSE 74; RESP 18; TEMP 36.2; O2SAT 96
[2024-01-20 07:47] VITALS: BP 132/86; PULSE 71; RESP 19; TEMP 36.4; O2SAT 95
[2024-01-20] MEDS: Calcium Carbonate *TUMS* 500 MG CHEW 2000 MG PO (07:49)
[2024-01-20] MEDS: Cholecalciferol (Vitamin D3) 400 UNIT TAB PO (07:49)
[2024-01-20] MEDS: Folic Acid 1 MG TAB PO (07:50)
[2024-01-20] MEDS: Normal Saline Flush 10 ML SYR IVP (07:50)
[2024-01-20] MEDS: Nystatin POWDER 15 GM JAR TP (07:50)
[2024-01-20] MEDS: Atenolol 50 MG TAB PO (07:50)
--- NOTE | 2024-01-20 08:33 | W.SPSTE ---
Date of service: 01/20/24 Time of Service: 08:00 Subjective Clinical (Bedside) Swallow Evaluation Speech Language Pathology Referred by: Sherrell Manuel Referral Type: Clinical Swallow Evaluation Reason for Referral/HPI: Bing Bernal is a 63 yo female with PMH significant for GERD, sleep apnea, polyneuropathy, ataxia who was admitted to [facility] on 01/17/24 with confusion/altered mental status. She has been diagnosed with acute metabolic encephalopathy, thought to be related to hyponatremia. She was referred for HIGH SCHOOL ASSISTANT PRINCIPAL evaluation secondary to report of 'difficulty swallowing'. HIGH SCHOOL ASSISTANT PRINCIPAL IMPRESSIONS & RECOMMENDATIONS: Bing was seen for a non-instrumental swallow evaluation this date. She denies dysphagia symptoms aside from chronic reflux, she states she manages this with OTC Nexium. Nursing denies current dysphagia concerns, anticipate earlier symptoms have improved with improved mental status. Oral mechanism examination and PO trials during breakfast meal were largely unremarkable for indication of oral pharyngeal dysphagia. Of notice, Bing continues to demonstrate some confusion (see orientation notes below) - and thus standard aspiration precautions are recommended, including upright positioning for all PO and increase in supervision if confusion is increased. If confusion persists despite hyponatremia correction, HIGH SCHOOL ASSISTANT PRINCIPAL cognitive evaluation may be beneficial- please re-consult for HIGH SCHOOL ASSISTANT PRINCIPAL cognitive evaluation if indicated. FURTHER HIGH SCHOOL ASSISTANT PRINCIPAL SERVICES: No further HIGH SCHOOL ASSISTANT PRINCIPAL services indicated for dysphagia If cognitive-communication evaluation is desired, please re-consult for this assessment. SUBJECTIVE: Patient received alert/awake, conversant, agreeable to evaluation. She was able to participate in conversation appropriately, with intermittent confusion noted in relation to reason for admission/how she ended up at [facility] Orientation: + self, general location (hospital), month, day of week, season, town she lives in - year (2021), date (), specific hospital ([facility]?), reason for admission (blood infection) Pain Reported? None Baseline Swallow Function: Patient denies swallowing difficulty prior to admission and eats a regular diet at baseline. History of chronic reflux, manages with OTC medications. PO Trials Assessed: IDDSI 0 Thin Liquids (Juice via cup) IDDSI 7 Regular Solid ([place] with jam) Oral Mechanism Examination: Dentition is WFL. Oral mucosa is moist/WFL. Cranial Nerve Assessment: CN V ? Trigeminal Facial Sensation WNL Jaw Strength/ROM WNL ?WNL CN VII- Facial WNL labial ROM, strength, coordination. WNL lingual sensation WNL CN IX ? Glossopharyngeal WNL palatal elevation with phonation. No evidence of nasal emissions WNL CN X ? Vagus WNL Vocal quality and volume. Strong/sharp volitional cough WNL CX XII ? Hypoglossal WNL lingual ROM, strength, coordination WNL Oral Phase Findings: WFL *Patient with difficulty with holding/manipulating cup due to neuropathy in hands. Prefers larger size cup. Pharyngeal Phase Findings: WFL ? [place] Swallow Protocol Results: PASS ??? ASSESSMENT: Further HIGH SCHOOL ASSISTANT PRINCIPAL Services not indicated. Recommendation at Discharge: Not indicated for dysphagia. Suggested Referrals: N/A Recommended Procedures: N/A Recommendations: ? SOLIDS: 7-Regular Solids LIQUIDS: 0-Thin Liquids MEDICATIONS: Whole with 0-Thin Liquids RISK MANAGEMENT: HOB upright as tolerated; upright for all PO intake. Oral hygiene BID/2x per day Level of Assistance/Supervision: Distant/intermittent supervision for PO meals in light of confusion Posture/Positioning Needs: Maintain upright position at least 30 minutes after meals Avoid meals/snacks 2-3 hours prior to reclining/sleeping Education Provided to: Nursing, patient Topics Addressed: HIGH SCHOOL ASSISTANT PRINCIPAL findings/POC/standard precautions PLAN: Evaluation only. HIGH SCHOOL ASSISTANT PRINCIPAL CPT Code: 11292 Clinical Swallowing Evaluation TOTAL TIME: 20 Minutes (800AM-820AM)
[2024-01-20 09:05] LABS: Anion Gap 8.2 mmol/L (3-11); BUN 9 mg/dL (7-18); CO2 24.8 mmol/L (21.0-32.0); CREATININE 0.7 mg/dL (0.55-1.02); Calcium 8.6 mg/dL (8.5-10.1); Chloride 99 mmol/L (98-107); Estimated GFR 97.12 (mL/min/1.73m2); Glucose 124 mg/dL (74-106); Sodium 132 mmol/L (136-145)
--- NOTE | 2024-01-20 10:08 | PDOC.CMPRO ---
Date of service: 01/20/24 Care Management Progress Note Progress Note Text Progress Note Text: S/O: Bing was sitting up in a chair visiting with her Karthik was talking with CM. Karthik explained that as far as memory Bing is not at baseline. Prior to admisstion, she was functionally well cognitively. Now per Karthik she is unable to recall recent information. Karthik describes being eager to talk to the Hospitalist before discharging and as of right now does not recall there is any follow up appointments. CM let RES COUNSELOR know. CM following. A: Bing is a 63 year old female admitted to [facility] 01/17/24 for metabolic encephaniopathy, hyponatremia. P: Bing will discharge home when medically cleared. She will transport home via private vehicle by family. She will resume PT,OT,RN services. She will follow up with her PCP and dischrage plan instructions as prescribed. CM following. SDOH(Care Management) Screening Will the Patient Participate in the Screening?: Unable to obtain
--- NOTE | 2024-01-20 11:18 | DSE_ITS ---
Date of service: 01/20/24 Time of Service: 11:19 DS: Diagnosis Discharge Diagnosis (1) Acute metabolic encephalopathy: Status: Acute (2) Acute hyponatremia: Status: Acute (3) Spondylolisthesis at L5-S1 level: Status: Acute (4) Essential hypertension: Status: Acute (5) Pernicious anemia: Status: Acute (6) Gastroesophageal reflux disease with esophagitis: Status: Acute (7) Sleep apnea: Status: Acute (8) Hypomagnesemia: Status: Acute Discharge Plan Disposition Patient Disposition: Home W/Home Health Services Condition: Improving Discharge Details Reason For Visit: metabolic encephalopathy, hyponatremia Admit Date/Time: 01/17/24 13:20 Admit Provider: Sekou Nicholas Attending Provider: Sekou Nicholas Primary Care Provider: Philip Romero Hospital Course Hospital Course: This is a 63-year-old female patient brought to the emergency department for 3- day history of increased confusion. Workup in the emergency department did show hyponatremia she was admitted to the hospital with symptomatic metabolic ence phalopathy. She received IV normal saline with resolution of her hyponatremia. Also found to be have low magnesium level this also was repleted thought to be secondary to her chronic omeprazole. This will be switched to famotidine at discharge she will continue to receive oral repletion after discharge. Urine also did grow E. coli she received 1 dose of ceftriaxone and 1 dose of fosfomycin which should clear her UTI. The rest of her medications were left unchanged. Also on this hospitalization noted to have a wound on her left lower extremity thought to be due to injury from [place] lift wound evaluation suspicious for possible stasis ulcer with a trauma component. Will continue having nursing follow for wound care and close monitoring. She is being discharged to home with resumption of home health services. No antibiotics needed she should have close follow-up with her outpatient team. Discharge discussed with Dr. Springer [place] Gue[place]a and New Rx's Prescriptions: New famotidine 20 mg Tablet 20 mg PO BID Qty: 60 0RF magnesium gluconate 27 mg magnesium (500 mg) Tablet 500 mg PO DAILY Qty: 30 0RF Continued benzonatate 100 mg capsule 100 - 200 mg PO TID PRN (Reason: cough) Qty: 30 0RF Hold Instructions: Changed by Provider Rx Instructions: Take 1-2 capsules by mouth three times a day as needed for cough milk thistle 500 MG capsule 2 cap PO DAILY calcium carbonate [Tums] 200 MG tablet,chewable 4 tab PO DAILY cholecalciferol (vitamin D3) [Vitamin D3] 400 UNIT tablet 1 tab PO DAILY mometasone 0.1 % ointment 1 applic TP DAILY PRN (Reason: skin irritation) Qty: 45 5RF atenolol 50 mg tablet See Rx Instructions .ROUTE .COMPLEX Qty: 90 3RF Dose Instruction: TAKE 1 TABLET DAILY Rx Instructions: TAKE 1 TABLET DAILY folic acid 1 mg tablet See Rx Instructions .ROUTE .COMPLEX Qty: 90 3RF Dose Instruction: TAKE 1 TABLET DAILY Rx Instructions: TAKE 1 TABLET DAILY Discontinued omeprazole 40 MG capsule,delayed release(DR/EC) 40 mg PO BID Qty: 180 Discharge Instructions Instructions: Urinary Tract Infection in Women (DC), Hyponatremia (DC), Hypomagnesemia (DC), Encephalopathy (DC) Additional Instructions: wound care instructions: Every 3 Days and as needed Remove dressing, spray wound home restoration service cleaner and allow to dwell for 2 minutes Pat dry with gauze Apply Skin Prep to intact harpreet wound area Cut Maxsorb II AG to cover wound bed (approx. 2x3in.) lay flat on wound bed Cover area with Medline Optifoam Gentle EX foam dressing and date Stand Alone Forms: Nursing Discharge Form Referrals: Philip Romero NP [Primary Care Provider] - 01/23/24 1:00 pm Activity:: Activity as Tolerated Equipment/Supplies:: No Equipment Needed Diet:: As Tolerated Discharge Orders Discharge Orders: Discharge Order (Routine); Ordered 01/20/24 Ordered By: Sherrell Manuel Discharge Data Discharge Date/Time-TO BE ENTERED AT DEPARTURE: 01/20/24 15:23 DS: Summary Time Spent with Patient providing and/or coordinating discharge services: Greater than 30 minutes Status at Discharge Functional status at discharge: wheelchair bound Overall status at discharge: patient is progressing back to baseline Mental Status: mental status grossly normal Speech and Movement: speech and movement normal Mood: congruent mood Affect: normal affect Quality:SDOH Health Related Social Needs: No Data to Display Exam Const General: cooperative, comfortable and no acute distress Nutritional Appearance: obese Orientation: alert, awake and confused (poor historian) HENMT Head: normal to inspection, normocephalic and atraumatic Eyes Eyelids: eyelids normal Pupils: PERRL EOM: EOM intact bilaterally Neck Neck: normal visual inspection Resp Effort & Inspection: normal respiratory effort Auscultation: clear to auscultation bilaterally Cardio Jugular venous pressure: no JVD Rhythm: regular rhythm GI Auscultation: normal bowel sounds Skin Lesions: lesion noted (left lower extremity, see wound care notes on description) Rashes: no rashes Neuro General: patient alert and patient awake Speech: speech normal Extrem General: full ROM and edema Psych Mental Status: mental status grossly normal Speech and Movement: speech and movement normal Mood: congruent mood Affect: normal affect DS: Data Vitals/I&O Vitals and I&O: Vital Signs Temperature 36.4 C L 01/20/24 07:47 Temperature Source Tympanic 01/20/24 07:47 Pulse 71 01/20/24 07:47 Pulse Rhythm Regular 01/20/24 07:55 Pulse 70 01/17/24 12:31 Respiratory Rate 19 01/20/24 07:47 Respiratory Effort Normal, Non-Labored 01/20/24 07:55 Respiratory Depth Normal 01/20/24 07:55 Respiratory Pattern Normal 01/20/24 07:55 Blood Pressure 132/86 01/20/24 07:47 Blood Pressure Mean 104 01/17/24 12:31 Pulse Oximetry 95 01/20/24 07:47 Oxygen Delivery Method Room Air 01/20/24 07:47 Oxygen Flow Rate 0 01/20/24 07:47 Pain Level 0 01/20/24 07:55 Comment RN Notified 01/18/24 23:01 Intake & Output 01/19/24 01/19/24 01/20/24 11:59 23:59 11:59 Intake Total 999 1333.333 / 1333.333 Output Total 550 / 1150 600 / 1150 800 / 800 Balance 450 / 850 400 / 850 533.333 / 533.333 Weight 91.881 kg Intake: IV 999 1313.333 / 1313.333 Oral 0 / 0 20 20 Output: Urine 550 / 1150 600 / 1150 800 / 800 Other: Urine Color Yellow Yellow Yellow Urine Appearance Cloudy Cloudy Cloudy Sediment Sediment Urine Odor Strong Comment Strong odor from urine after emptying escalante catheter bag. Stool Size Smear Smear Stool Characteristics Soft Soft Brown Brown Data Completed and Pending Labs on day of discharge: Labs from last 24 hours 01/20/24 01/19/24 01/18/24 08:50 18:30 09:00 Sodium 132 L Potassium 4.0 Chloride 99 Carbon Dioxide 24.8 Anion Gap 8.2 BUN 9 Creatinine 0.7 Est GFR (CKD-EPI 2020) 97.12 Glucose 124 H Calcium 8.6 Cortisol 18 Urine Color Yellow Urine Clarity Turbid Urine pH 6.0 Ur Specific [place] 1.025 Urine Protein 30 H Urine Ketones Negative Urine Blood Moderate H Urine Nitrite Negative Urine Bilirubin Negative Urine Urobilinogen 4.0 H Ur Leukocyte Esterase Large H Urine RBC Not Applicable Urine WBC >50 H Ur Epithelial Cells Not Applicable Urine Crystals Not Applicable Urine Bacteria Not Applicable Urine Mucus Not Applicable Ur Culture Indicated? Yes Urine Osmolality Urine Glucose Negative 01/17/24 13:35 Sodium Potassium Chloride Carbon Dioxide Anion Gap BUN Creatinine Est GFR (CKD-EPI 2020) Glucose Calcium Cortisol Urine Color Urine Clarity Urine pH Ur Specific Monroe Urine Protein Urine Ketones Urine Blood Urine Nitrite Urine Bilirubin Urine Urobilinogen Ur Leukocyte Esterase Urine RBC Urine WBC Ur Epithelial Cells Urine Crystals Urine Bacteria Urine Mucus Ur Culture Indicated? Urine Osmolality 318 Urine Glucose 01/19/24 18:30 Urine - Reflex from Urine Culture - Pending Preliminary micro results at discharge 01/19/24 18:30 Urine Culture - Pending Urine - Reflex from [facility] All Active Problems (Updated 01/17/24 @ 14:54 by SENDY Steiner) Hypomagnesemia (Acute) Acute hyponatremia (Acute) Acute metabolic encephalopathy (Acute) Pernicious anemia (Acute 09/26/06) pern Hyperlipidemia (Acute) Headache (Acute 09/26/04) w/vision problems; MRI-demyelination areas vs. sm. vessel disease;MRI 09/01-? 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 [facility] Folic acid deficiency (Acute) Psoriasis (Chronic) steroids topical as needed Sleep apnea (Acute) CPAP since 2019 Skin lesion (Acute) Rhinosinusitis (Acute) Generalized weakness (Acute) Frequent falls (Acute) Polyneuropathy (Acute) Ataxia (Acute) Spinal stenosis of lumbar region (Chronic) Medical History UTI (urinary tract infection) Syncope Alcohol intoxication Lactic acid acidosis UTI (urinary tract infection) HTN (hypertension) Non-toxic uninodular goiter thyroid cyst-removed by Dr. Flores 1999 Surgical History Status post cholecystectomy Cholecystectomy Family History Mother , age 48 Breast cancer Father , age 90 Stomach cancer Sister No problems noted. Brother No problems noted. Brother No problems noted. Brother No problems noted. Maternal Grandmother , in her 80s No problems noted. Paternal Grandmother , in her 80s No problems noted. Other Syncope Social History Smoking/Tobacco Use Status: Never Smoking risk assessment performed?: Yes Alcohol Intake: current Alcohol Intake frequency: 0-2 drinks per day Alcohol type: beer, wine and hard liquor Drug use: Never Caregiver/Support person: No Household members: spouse Housing: house Communication Needs: None Do you need help understanding health information?: Never Pets and animals: No Sexually active: No Do you think of yourself as: straight/heterosexual Current gender identity: female What is your relationship status?: How often do you talk on the phone with friends or family?: three or more times per week How often do you get together with friends or relatives?: once per week How often do you attend voodoo or muslim services?: 1-3 times per year Do you belong to any clubs or organized social groups?: yes Panel score (0-1 are the most socially isolated patients): 3 What type of physical activity do you participate in: none 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
[2024-01-20] MEDS: cefTRIAXone 1 GM/50 ML BAG IVPB (11:22)
[2024-01-20] MEDS: MAGNESIUM SULFATE 2 GM/50 ML BAG IVPB (12:15)
[2024-01-20] MEDS: Magnesium Gluconate 500 MG TAB PO (12:16)
[2024-01-20] MEDS: Fosfomycin Tromethamine 3 GM PACKET PO (12:20)
--- NOTE | 2024-01-20 13:54 | PDOC.HHF2F_ITS ---
Home Health Referral Home Health Orders Clinical synopsis of why skilled professionals are needed: wound care, medication oversight, at risk individual Medical diagnosis necessitation home health referral: UTI, confusion, hyponatremia, leg wound Registered Nurse: Check all that apply Instruct on new or changed medication(s)/assess compliance: Ordered Assess for exacerbation of medical condition, instruct patient/caregivers on signs and symptoms to report for early detection: Ordered Assess wound for signs and symptoms of infection, instruct on wound care and/or provide skilled wound care consisting of: Every 3 Days and as needed Remove dressing, spray wound globe cleaner and allow to dwell for 2 minutes Pat dry with gauze Apply Skin Prep to intact harpreet wound area Cut Maxsorb II AG to cover wound bed (approx. 2x3in.) lay flat on wound bed Cover area with Medline Optifoam Gentle EX foam dressing and date Physical Therapist: Check all that apply Increase strength & endurance for safe mobility at home: Ordered To design/establish home maintenance program: Ordered Fall reduction therapy program for patient with history of frequent falls: Ordered Home safety evaluation and teaching/gait training including stair management (if applicable): Ordered Occupational Therapist: Evaluate and treat for patient unable to perform ADL/IADL/self-care: Ordered Automatic Brine Mixer Operator: Assist with community resources: Ordered Assist with prison care planning: Ordered Home Bound Status Requires the aid of supportive device (check all that apply): Wheelchair Describe why leaving home would require a considerable and taxing effort: Con fusion and Requires alternative accommodations: (wheelchair bound, dorita for transfers) Encounter Date and Reason: I certify that a FTF encounter for this patient was performed on January 20, 2024 and that such encounter was related to the primary reason the patient requires home health services. The encounter was conducted in the following manner: * By me as the certifying physician, SERVICE DESK ASSOCIATE, PA or * By an inpatient physician, SERVICE DESK ASSOCIATE or PA during an inpatient stay who communicated findings to me, Certification And Authentication I certify that I composed the above information based on my clinical judgment relating to this patient's medical condition and, if applicable, clinical findings communicated to me by the NPP or inpatient physician who performed the FTF encounter. Name of Provider that will be monitoring home health services: Philip Parker
--- NOTE | 2024-01-20 15:25 | PDOC.CMDIS ---
Date of service: 01/20/24 LACE Index Scoring Tool Questions: Length of Stay (in days): 3 Was the patient admitted via the E.D.?: Yes E.D. Visits: 1 Answers: Total Score: 7 Risk of Readmission: Low Risk Care Management Discharge Plan Reason for Hospitalization: Metabolic encephalopathy, hyponatremia Discharge Plan: Bing will discharge home and transport via private vehicle with Karthik. Bing will resume O/E VNA services. She will follow up with her PCP and primary care instructions as prescribed. Patient/Family Education Needs: Review discharge plan instructions as prescribed. Discussion of plan of care including Ask Me Three Services Needed at Discharge: Home Health Care Services, Occupational Therapy and Physical Therapy SDOH Health Related Social Needs: No Data to Display
[2024-01-20 18:37] LABS: Adrenocorticotropic Hormone, P 23 pg/mL
--- NOTE | 2024-01-29 09:27 | NUR.NOTE ---
Nursing Note: Got into chart to review per nursing electrician supervisor substation. Unable to fix what was in the MAR, unable to see the MAR.
== END 2024-01-20 15:23 | disposition home health service (06) | DRG 640 ==
LOC: ER 13:39 → MS 14:30
PROVIDERS: Internal Medicine; Nurse Practitioner Acute Care; Admitting Provider Family Medicine; Emergency Provider Physician Assistant; PCP Nurse Practitioner Family; Visit Provider Family Medicine
DX: E87.1 Hypo-osmolality and hyponatremia (principal); G93.41 Metabolic encephalopathy; D51.0 Vitamin B12 deficiency anemia due to intrinsic factor deficiency; I10 Essential (primary) hypertension; Z79.899 Other long term (current) drug therapy; E83.42 Hypomagnesemia; M43.17 Spondylolisthesis, lumbosacral region; R40.2412 Glasgow coma scale score 13-15, at arrival to emergency department; K21.00 Gastro-esophageal reflux disease with esophagitis, without bleeding; L40.9 Psoriasis, unspecified; G47.30 Sleep apnea, unspecified; R53.1 Weakness; R29.6 Repeated falls; Z99.3 Dependence on wheelchair; G62.9 Polyneuropathy, unspecified
CPT/HCPCS: 00123; 36415; 51702; 80048; 80053; 80307; 82533; 83935; 87077; 92610; 93005; 99291; 70450; 71046; 80320; 81003; 81015; 82024; 82140; 82565; 83605; 83735; 84295; 84300; 84443; 84484; 85025; 87086; 87186; 93010; 99222; 99233; 99239; J0696; J3475; J3490

== ENCOUNTER 2024-01-28 16:05 | Outpatient (REF) | payer OTHER, SELFPAY ==
[2024-01-28 21:17] LABS: Anion Gap 8.6 mmol/L (3-11); BUN 13 mg/dL (7-18); CO2 29.4 mmol/L (21.0-32.0); CREATININE 0.9 mg/dL (0.55-1.02); Calcium 11.2 mg/dL (8.5-10.1); Chloride 99 mmol/L (98-107); Estimated GFR 71.83 (mL/min/1.73m2); Glucose 96 mg/dL (74-106); Magnesium 0.9 mg/dL (1.8-2.4); Potassium 4.2 mmol/L (3.5-5.1); Sodium 137 mmol/L (136-145); TSH (W/Ref FT4) 3.75 uIU/mL (0.36-3.74); Vitamin B12 744 pg/mL (193-986)
[2024-01-28 21:37] LABS: FREE T4 1.47 ng/dL (0.76-1.46)
[2024-01-29 09:57] LABS: Lab Add On Test DONE
[2024-01-29 18:20] LABS: Parathyroid Hormone,Intact <6 pg/mL (19-88)
[2024-01-30 09:56] LABS: Syphilis Serology (RPR) Negative (Negative)
[2024-01-31 08:45] LABS: Lab Add On Test DONE
== END 2024-01-28 16:06 | disposition home or self-care (01) ==
LOC: LBN 16:05
PROVIDERS: PCP Nurse Practitioner Family; Visit Provider Nurse Practitioner Family
DX: E87.1 Hypo-osmolality and hyponatremia (principal); R41.3 Other amnesia; E83.42 Hypomagnesemia; E20.9 Hypoparathyroidism, unspecified
CPT/HCPCS: 80048; 82306; 82607; 83735; 83970; 84439; 84443; 86592

== ENCOUNTER 2024-02-04 12:37 | Emergency (ER) | payer OTHER, SELFPAY ==
[2024-02-04] VITALS (12 sets, daily range): BP systolic 103–144; BP diastolic 76–99; PULSE 74–85; RESP 14–18; TEMP 36.9; O2SAT 94–100
--- NOTE | 2024-02-04 12:39 | ED.GENADUL_ITS ---
Discharge Plan Discharge Details Chief Complaint: AMS/LOC Clinical Impression: Memory change Primary Care Provider: Philip Romero ED Provider: Vic Salcedo Home Meds and New Rx's Prescriptions: Continued milk thistle 500 MG capsule 2 cap PO DAILY calcium carbonate [Tums] 200 MG tablet,chewable 4 tab PO DAILY cholecalciferol (vitamin D3) [Vitamin D3] 400 UNIT tablet 1 tab PO DAILY mometasone 0.1 % ointment 1 applic TP DAILY PRN (Reason: skin irritation) Qty: 45 5RF atenolol 50 mg tablet See Rx Instructions .ROUTE .COMPLEX Qty: 90 3RF Dose Instruction: TAKE 1 TABLET DAILY Rx Instructions: TAKE 1 TABLET DAILY folic acid 1 mg tablet See Rx Instructions .ROUTE .COMPLEX Qty: 90 3RF Dose Instruction: TAKE 1 TABLET DAILY Rx Instructions: TAKE 1 TABLET DAILY magnesium gluconate 27 mg magnesium (500 mg) tablet 500 mg PO BID Qty: 30 0RF Rx Instructions: Increased from 500mg daily to BID by Philip on 01/31/24. mg famotidine 20 mg Tablet 20 mg PO BID Qty: 60 0RF HPI General Date/Time Provider Initiated Documentation: 02/04/24 12:39 . HPI Narrative: MDM This is a normothermic and not tachycardic 63-year-old female with memory changes and worsening acute encephalopathy concerning for multiple etiologies. No focal neurological deficits to suggest CVA so I did not feel that the patient would be a tPA candidate nor would she require an MRI. No fevers nor nuchal rigidity to suggest meningitis I do not feel that the patient requires a lumbar puncture. No shortness of breath to suggest PE. Will assess electrolytes to ensure patient is not markedly hyponatremic. No clonus to suggest serotonin syndrome. No rigidity to suggest neuroleptic malignant syndrome. Will also obtain ethanol and ammonia level to ensure patient is not intoxicated nor hyperammonemic. Will obtain CT head to ensure patient does not have any acute intercranial abnormalities. No pain out of proportion to suggest necrotizing soft tissue infection. I considered sepsis however in the absence of fevers based on the patient's reassuring vital signs I do not feel that sepsis is likely so I did not order a lactate blood cultures nor treat empirically with antibiotics.Patient does have home help involved. Patient's reports that he can no longer take care of her at home. Will touch base with care management. Patient is having no behavioral disturbances so I do not feel that she requires haloperidol. Per chart review from hospitalization last month there was question of superimposed delirium. Certainly the patient's ethanol abuse could have led to her garden chlorine. I considered Warnicke Korsakoff syndrome however patient has no ophthalmoplegia nor nystagmus and is not a chronic alcoholic. As result I did not give thiamine nor folate. 1:42 PM Mary Kay Alexander from care management is down to see the patient. 2:20 PM Negative ammonia. Negative salicylates. On my preliminary read of the patient's CT head no acute bleed. Negative ethanol level. Negative acetaminophen level. Basic metabolic panel with mild hyponatremia. No VERN. No acute electrolyte abnormalities. Mildly elevated TSH. Free T4 pending. CBC shows mild macrocytic anemia improved compared to prior. No thrombocytopenia. No leukocytosis. Urinalysis showing trace ketonuria. Nitrite negative??not consistent with UTI. 2:[address] head with no acute intercranial process. Free T4 mildly elevated. I spoke with Mary Kay again from care management. She was going to place referrals for home health and referrals for acute rehab. Patient's reportedly has a niece and nephew nearby who can help. 4:05 PM Physical therapy at bedside. I signed patient out to Dr. Conrad pending final conversation with care management and physical therapy. Chronic conditions affecting the care of the patient: Neuromuscular disorder hypertension wheelchair dependent History obtained from an outside historian: Patient's External record review: [facility] [place] EMR Medications: N/A Preliminary interpretation of chest x-ray: No acute cardiopulmonary process. Social determinants of health affecting disposition: N/A Management discussed with: Care management, physical therapyDr. Conrad Treatment/interventions considered: Hospitalization Response to therapies provided: N/A HPI This is a 63-year-old female with history of ataxia and pernicious anemia arrived to the emergency department with her in the setting of confusion that has been worsening for the past 3 weeks. Patient is wheelchair-bound. notes that she has recently been hallucinating. She has had visual hallucinations of people in their home. reports that he is no longer able to take care of the patient. Patient occasionally drinks ethanol but has not had it in 3 days. She drinks 1-2 drinks per day and has no history of withdrawal. No routine tobacco no illicits. No recent falls. No fevers nausea nor vomiting. Patient reportedly feels more tired. No headache. Exam General: Chronically ill-appearing in no acute distress speaking in complete sentences. Sitting in a wheelchair with Júnior lift in place. Head: Normocephalic, atraumatic. Eye: Extraocular eye movements intact. No conjunctival injection. No scleral icterus. Ear, nose, mouth, throat: Grossly normal inspection. Normal voice, handling secretions normally. Neck: Trachea midline. Cardiovascular: Well-perfused distal extremities. Regular rate and rhythm. Respiratory: Nonlabored respiration. Clear lungs bilaterally. Gastrointestinal: Nondistended abdomen. Soft nontender. Back: Stage I sacral decubitus ulcer. No midline thoracic nor lumbar spinal tenderness. No step-offs no deformities. Musculoskeletal: No edema. Moving all 4 extremities spontaneously. Left lower extremity with healing ulcer no signs of superinfection distal aspect of left lower extremity lateral side, just superior to the left lateral malleolus. Ulcer dressed under Mepilex. Skin: Normal for age and race, grossly normal temperature and turgor. No acute rash. Neurologic: Alert to person and place but not time. GCS 14: E4, V4, M6. Does not participate in neurological assessment. No dysphagia nor dysarthria.Normal muscle bulk and tone. Would not participate in pronator drift testing. Related Data Home Medications Medication Instructions Recorded Confirmed calcium carbonate 200 mg calcium 4 tab PO DAILY 02/10/13 02/04/24 (500 mg) chewable tablet (Tums) cholecalciferol (vitamin D3) 10 1 tab PO DAILY 02/10/13 02/04/24 mcg (400 unit) tablet (Vitamin D3) milk thistle 500 mg capsule 2 cap PO DAILY 02/10/13 02/04/24 mometasone 0.1 % topical ointment 1 applic topical DAILY PRN skin 01/21/23 02/04/24 irritation #45 grams atenolol 50 mg tablet See Rx Instructions .Route 11/25/23 02/04/24 .COMPLEX #90 tabs folic acid 1 mg tablet See Rx Instructions .Route 11/25/23 02/04/24 .COMPLEX #90 tabs famotidine 20 mg tablet 20 mg PO BID #60 tabs 01/20/24 02/04/24 magnesium gluconate 27 mg 500 mg (18.5185 x 27 mg magnesium 01/31/24 02/04/24 magnesium (500 mg) tablet (500 mg)) PO BID #30 tabs Previous Rx's Medication Instructions Recorded mometasone 0.1 % topical ointment 1 applic topical DAILY PRN skin 01/21/23 irritation #45 grams atenolol 50 mg tablet See Rx Instructions .Route 11/25/23 .COMPLEX #90 tabs folic acid 1 mg tablet See Rx Instructions .Route 11/25/23 .COMPLEX #90 tabs famotidine 20 mg tablet 20 mg PO BID #60 tabs 01/20/24 magnesium gluconate 27 mg 500 mg (18.5185 x 27 mg magnesium 01/31/24 magnesium (500 mg) tablet (500 mg)) PO BID #30 tabs Allergies Allergy/AdvReac Type Severity Reaction Status Date / Time oxycodone Allergy Intermediate Anaphylaxis Unverified 02/04/24 13:48 sucralfate Allergy Intermediate Itching Unverified 02/04/24 13:48 furosemide Allergy Mild Anaphylaxis Unverified 02/04/24 13:48 hydrochlorothiazide Allergy Mild Anaphylaxis Unverified 02/04/24 13:48 influenza A (H5N1) virus AdvReac Anaphylaxis Unverified 02/04/24 13:48 vaccine mo General MAURICIO: 3 Medical Decision Making Quality:SDOH Health Related Social Needs: No Data to Display PFSH All Active Problems (Updated 02/04/24 @ 16:20 by Vic Salcedo MD) Memory change (Acute) Hypoparathyroidism (Acute) Memory changes (Acute) Hypomagnesemia (Acute) Acute hyponatremia (Acute) Pernicious anemia (Acute 09/26/06) pern Hyperlipidemia (Acute) Headache (Acute 09/26/04) w/vision problems; MRI-demyelination areas vs. sm. vessel disease;MRI 09/01-? of small aneurysm @L clinoids and L ICA 2020- optical migraines- Dr Adams ([facility]) Gastroesophageal reflux disease with esophagitis (Acute) Essential hypertension (Acute) Pedal edema (Acute) 12/2020 Echo- EF 60%, Mildly dilated ascending aorta measuring 3.34 cm Spondylolisthesis at L5-S1 level (Acute) xray 2002-thoracic DJD; L5 spondylo w/Grade II;spondylolisthesis L5 on S1 Surgery 05/16- spinal fusion? [facility] [place] Folic acid deficiency (Acute) Psoriasis (Chronic) steroids topical as needed Sleep apnea (Acute) CPAP since 2019 Skin lesion (Acute) Rhinosinusitis (Acute) Generalized weakness (Acute) Frequent falls (Acute) Polyneuropathy (Acute) Ataxia (Acute) Spinal stenosis of lumbar region (Chronic) Medical History (Updated 02/04/24 @ 16:20 by Vic Salcedo MD) Acute metabolic encephalopathy UTI (urinary tract infection) Syncope Alcohol intoxication Lactic acid acidosis UTI (urinary tract infection) HTN (hypertension) Non-toxic uninodular goiter thyroid cyst-removed by Dr. Flores 1999 Surgical History Status post cholecystectomy Cholecystectomy Family History Mother , age 48 Breast cancer Father , age 90 Stomach cancer Sister No problems noted. Brother No problems noted. Brother No problems noted. Brother No problems noted. Maternal Grandmother , in her 80s No problems noted. Paternal Grandmother , in her 80s No problems noted. Other Syncope Social History Smoking/Tobacco Use Status: Never Smoking risk assessment performed?: Yes Alcohol Intake: current Alcohol Intake frequency: 0-2 drinks per day Alcohol type: beer, wine and hard liquor Drug use: Never Caregiver/Support person: No Household members: spouse Housing: house Communication Needs: None Do you need help understanding health information?: Never Pets and animals: No Sexually active: No Do you think of yourself as: straight/heterosexual Current gender identity: female What is your relationship status?: How often do you talk on the phone with friends or family?: three or more times per week How often do you get together with friends or relatives?: once per week How often do you attend zoroastrian or jehovah's witness services?: 1-3 times per year Do you belong to any clubs or organized social groups?: yes Panel score (0-1 are the most socially isolated patients): 3 What type of physical activity do you participate in: none Jodee/Adventism: Holiness Special jodee needs: No Seatbelt use: always Drive intox 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 driver service technician: No Do you feel safe at home: Yes Do you feel safe in your relationship?: Yes
--- NOTE | 2024-02-04 12:59 | DI.RAD_ITS ---
Exam(s) XR CHEST 1V IN DI DEPT EXAM: XR CHEST 1V IN DI DEPT CLINICAL HISTORY: Confusion TECHNIQUE: 2D digital imaging was performed. COMPARISON: CR XR CHEST 2V PA LATERAL from 01/17/2024 FINDINGS: LUNGS: Clear. No pleural abnormality seen. HEART: Enlarged. AORTA: Normal diameter. BONES: Unremarkable for age. Soft tissues: Unremarkable. IMPRESSION: No acute findings. DATA REPOSITORY: RADIATION DOSE DELIVERED:
[2024-02-04 13:42] LABS: Abs Immature Grans 0.05 10^3/uL (0.0-0.06); Absolute Basophil Count 0.04 10^3/uL (0.0-0.2); Absolute Lymphocyte Count 1.26 10^3/uL (1.2-3.4); Absolute Monocyte Count 0.43 10^3/uL (0.1-0.8); Absolute Neutrophil Count 5.25 10^3/uL (1.2-6.7); Basophils % 0.6; Eosinophils % 2.8; HCT 31.1 % (36.0-46.0); HGB 10.3 g/dL (11.2-15.7); Immature Grans % 0.7; Lymphocytes % 17.4; MCHC 33.1 % (32.0-36.0); MCV 100 fL (80-95); Monocytes % 5.9; Neutrophils % 72.6; Platelet Count 245 10^3/uL (130-400); RBC 3.12 10^6/uL (3.93-5.22); RDW 14.6 % (11.7-14.6); RDW-SD 53.1 fL; WBC 7.23 10^3/uL (4.4-10.8)
[2024-02-04 13:44] LABS: Bilirubin Moderate (Negative); Blood Negative (Negative); Clarity Clear (Clear); Glucose Negative (Negative); Ketones Trace mg/dL (Negative); Leukocyte Esterase Negative (Negative); Nitrite Negative (Negative); Specific Gravity 1.025 (1.005-1.025); pH 6.5 (5-8)
[2024-02-04 14:00] LABS: Ammonia < 10 umol/L (11-32)
[2024-02-04 14:05] LABS: Salicylate < 2.8 mg/dL (<2.8)
[2024-02-04 14:06] LABS: Acetaminophen < 2 ug/mL (10-30)
[2024-02-04 14:10] LABS: Anion Gap 9.3 mmol/L (3-11); BUN 13 mg/dL (7-18); CO2 26.7 mmol/L (21.0-32.0); CREATININE 0.9 mg/dL (0.55-1.02); Calcium 9.5 mg/dL (8.5-10.1); Chloride 95 mmol/L (98-107); Estimated GFR 71.83 (mL/min/1.73m2); Glucose 94 mg/dL (74-106); Potassium 3.9 mmol/L (3.5-5.1); Sodium 131 mmol/L (136-145); TSH (W/Ref FT4) 4.17 uIU/mL (0.36-3.74)
[2024-02-04 14:14] LABS: ETHANOL BLOOD < 3.0 mg/dL (<10)
--- NOTE | 2024-02-04 14:24 | DI.CT_ITS ---
Exam(s) CT HEAD WO EXAM: CT HEAD WO CLINICAL HISTORY: Confusion. TECHNIQUE: Imaging Protocol: Axial computed tomography images with coronal and sagittal reformatted images were created and reviewed COMPARISON: CT CT HEAD WO from 01/17/2024 FINDINGS: Ventricles and Extra axial spaces: Normal in size and morphology for the patient's age. Hemorrhage: None. Cerebral parenchyma: No evidence of acute infarct or mass. Stable white matter changes. Mild atrophy . Midline shift: None. Brainstem/Cerebellum: Normal. Calvarium: Normal. Visualized Paranasal sinuses:Clear. Mastoids: Clear. Soft Tissues: Unremarkable. ORBITS: Unremarkable. PITUITARY: Not enlarged. IMPRESSION: No acute intracranial process. RADIATION DOSE DELIVERED: Total DLP DATA REPOSITORY: All CT scans at this facility are submitted to the National Radiology Data Registry (NRDR) Dose Index Registry (DIR) with the [employer] (ACR). RADIATION OPTIMIZATION: All CT scans at this facility use at least one of these dose optimization te chniques: automated exposure control; mA and/or kV adjustment per patient size (includes targeted exa ms where dose is matched to clinical indication); or iterative reconstruction.
[2024-02-04 14:30] LABS: FREE T4 1.66 ng/dL (0.76-1.46)
--- NOTE | 2024-02-04 15:59 | PT.INIE ---
PT Notes Visit Reasons: Confusion/loss of memory Physical Therapy Inpatient Initial Evaluation Date: 02/04/2024 Referring Doctor: Vic Salcedo MD PT Orders: PT CONSULT: Please evaluate for need for acute rehab Precautions: Fall. Standard. Activity as tolerated. Wheelchair-bound. Patient Profile/Admitting Diagnosis: Bing is a 63-year-old R-hand dominant wheelchair-bound female who presented to the ED due to generalized weakness, inability to walk, and increased confusion with referral to PT to determine need for acute rehab. PMHx: All Active Problems (Updated 02/04/24 @ 16:20 by Vic Salcedo MD) Memory change (Acute) Hypoparathyroidism (Acute) Memory changes (Acute) Hypomagnesemia (Acute) Acute hyponatremia (Acute) Pernicious anemia (Acute 09/26/06) pernHyperlipidemia (Acute) Headache (Acute 09/26/04) w/vision problems; MRI-demyelination areas vs. sm. vessel disease;MRI 09/01-? of small aneurysm @L clinoids and L ICA 2020- optical migraines- Dr Adams ([facility]) Gastroesophageal reflux disease with esophagitis (Acute) Essential hypertension (Acute) Pedal edema (Acute) 12/2020 Echo- EF 60%, Mildly dilated ascending aorta measuring 3.34 cm Spondylolisthesis at L5-S1 level (Acute) xray 2002-thoracic DJD; L5 spondylo w/Grade II;spondylolisthesis L5 on S1 Surgery 05/16- spinal fusion? [facility] ([facility]) Psoriasis (Chronic) steroids topical as needed Sleep apnea (Acute) CPAP since 2018Skin lesion (Acute) Rhinosinusitis (Acute) Generalized weakness (Acute) Frequent falls (Acute) Polyneuropathy (Acute) Ataxia (Acute) Spinal stenosis of lumbar region (Chronic) Medical History (Updated 02/04/24 @ 16:20 by Vic Salcedo MD) Acute metabolic encephalopathy UTI (urinary tract infection) Syncope Alcohol intoxication Lactic acid acidosis UTI (urinary tract infection) HTN (hypertension) Non-toxic uninodular goiter thyroid cyst-removed by Dr. Flores 1999 Surgical History Status post cholecystectomy Cholecystectomy Social History/Home Situation: Lives with in a private home with 2 steps to enter with rails on B sides. retired since last month. Patient has been wheelchair-bound and has a mechanical lift at home for all transfers. She receives services twice a week for bathing and self-care. provides assistance with operating mechanical lift as well as perineal care should patient need to use toilet for voiding urine and stools. 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 Equipment Owned/DME: Hospital bed, motorized wheelchair, mechanical lift Subjective: Patient had some not-so-nice verbalizations about during the early part of evaluation that patient requested to go out to allow for patient to concentrate on the assessment. She was unaware of where she was, thinks that she could stand up and and transfer no problem from bed to bedside commode. Per , there is no mobility decline in the patient in the past several weeks, she has required total assist with all transfers using the mechanical lift. It is her confusion, hallucination, and paranoia which have gone out of control and have been making it difficult to provide care for that prompted this hospitalization. Objective: General Observation: Resting on stretcher, high BMI. Bruise noted on the L merino area. Decubitus noted on L DIP of 5th toe. Mental Status: Alert only to person. Needed repetition of instrctions for clarity. No insight to functional deficits. Very paranoid towards . Pain: Moderate cramping pain on the back of R thigh with passive R knee flexion Vital Signs: Closely monitored by ED staff ROM: Right Upper Extremity: Shoulder Flexion allows only up to about 80 degrees. Shoulder abduction allows only up to about 80 degrees. Elbow flexion WFL. Wrist flexion WFL. Functional opening and closing of hand WFL. Left Upper Extremity: Shoulder Flexion allows only up to about 80 degrees. Shoulder abduction allows only up to about 80 degrees. Elbow flexion WFL. Wrist flexion WFL. Functional opening and closing of hand WFL. Right Lower Extremity: Hip flexion unable. Hip abduction about 10 degrees while in supine. Knee flexion unable. Ankle dorsiflexion unable. Ankle plantarflexion about 10 degrees. Left Lower Extremity: Hip flexion unable. Hip abduction about 10 degrees while in supine. Knee flexion unable. Ankle dorsiflexion unable. Ankle plantarflexion about 10 degrees. Strength: Right Upper Extremity: Shoulder flexors 2-/5. Shoulder abductors 2-/5. Elbow flexors 3/5. Elbow extensors 3/5. 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 Left Upper Extremity: Shoulder flexors 4-/5. Shoulder abductors 4-/5. Elbow flexors 4-/5. Elbow extensors 4-/5. 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 Right Lower Extremity: Hip flexors 1/5. Hip abductors 1/5. Knee flexors 1/5. Knee extensors 2-/5. Ankle dorsiflexors 1/5. Ankle plantarflexors 2-/5. Left Lower Extremity: Hip flexors 1/5. Hip abductors 1/5. Knee flexors 1/5. Knee extensors 2-/5. Ankle dorsiflexors 1/5. Ankle plantarflexors 2-/5. Bed Mobility/Transfers: Unable to sit up from a reclined positioned with HOB at 30 degrees even with B hands pulling from B bed rails Sit to stand deferred due to lack of trunk strength/core strength, patient has been wheechair-bound Stand to sit deferred due to lack of trunk strength/core strength, patient has been wheelchair-bound Bed to bedside commode due to lack of trunk strength/core strength, patient has been wheelchair-bound Gait: Deferred, unsafe at this time. Patient has been wheelchair-bound. Balance: Static Sitting: Poor Dynamic Sitting: Unable Static Standing: Unable Dynamic Standing: Unable Special Tests: Mobility Limitations Standardized Measure [facility] 6 clicks Basic Mobility Inpatient Short Form: Raw Score: 6 CMS Score: 100% deficit Informed Consent/Education: Patient was instructed in purpose of PT consult. Assessment: Patient at baseline mobility level and remains in need of total assistance for all mobility ADLs using mechanical lift. Ability to follow instructions now more impaired due to decline in cognition and increased paranoia, increasing risk for falls. Patient may benefit from neurologic/psychologic/psychiatric follow up to assess for reason for cognitive decline/increased confusion. No skilled intervention needed as of right now. Continue with use of mechanical lift for all transfers. Unsafe with operation of motorized wheelchair, spoke with about ensuring 24/7 supervision and turning wheelchair battery off for safety, consider use of seat belt as positioner for safety. Patient presents with clinical signs and symptoms consistent with current/admitting diagnoses that have resulted to mobility limitations, gait instability, generalized weakness, and overall ADL decline as demonstrated by the following impairment level findings: 1. Wheelchair-bound 2. Increased confusion and ability to follow instruction 3. Increased paranoia Impairments are contributing to the following functional limitations: 1. Dependent transfers 2. Dependent bed mobility 3. Inability to safely operate motorized chair 4. Increased risk for skin breakdown 5. Increased risk for falls Patient is assessed as a 78274 moderate complexity based on the following: History: 63-year-old female with past medical history as indicated above Examination: Demonstrable impairment in strength, balance, and mobility level with underlying impairments and functional limitations as exhibited above as well as deficit score of 100% utilizing the [facility] Mobility Inpatient Short Form Presentation: Evolving Decision Makin high complexity Goals: N/A. PT evaluation only. Plan of Care/Treatment Plan: N/A. PT evaluation only. DISCHARGE RECOMMENDATIONS: [] Home with no services [] [X] Home with services. Patient will benefit from home health PT services for wheelchair re-assessment, home safety evaluation, and positioning reassessment. [] Home with outpatient PT [] [] SNF for continued rehabilitation [] [] Forensic Toxicologist Care [] [] SNF versus LTC based on ability to participate and progress [] TREATMENT CODE/TIME: 48054 x 33 minutes for 1 unit (15:59-16:32). Thank you for the opportunity to participate in the care of this patient. Chelsie Crews PT, DPT, CLT [facility] [place], [place]
--- NOTE | 2024-02-04 16:35 | W.EDPROG ---
Date of service: 02/04/24 Time of Service: 16:35 Medical Decision Making Care management team and physical therapy has evaluated patient. At this juncture patient is not a candidate for rehab placement however resources are in place to explore insurance options for potential long-term care facility down the line. Referrals being placed for palliative care evaluation as well as other resources on an outpatient basis. Patient and family are comfortable going home. Quality:SDOH Health Related Social Needs: No Data to Display Sign Out Sign Out Data: Sign Out Comment: Please follow-up with physical therapy and care management concerning plan for outpatient follow-up versus acute rehab placement versus hospitalization. Last updated by Vic Salcedo MD at 02/04/24 16:22 Discharge Plan Disposition Patient Disposition: Home Condition: Stable Discharge Details Chief Complaint: AMS/LOC Clinical Impression: Memory change Primary Care Provider: Philip Romero ED Provider: Luis Styles Home Meds and New Rx's Prescriptions: Continued milk thistle 500 MG capsule 2 cap PO DAILY calcium carbonate [Tums] 200 MG tablet,chewable 4 tab PO DAILY cholecalciferol (vitamin D3) [Vitamin D3] 400 UNIT tablet 1 tab PO DAILY mometasone 0.1 % ointment 1 applic TP DAILY PRN (Reason: skin irritation) Qty: 45 5RF atenolol 50 mg tablet See Rx Instructions .ROUTE .COMPLEX Qty: 90 3RF Dose Instruction: TAKE 1 TABLET DAILY Rx Instructions: TAKE 1 TABLET DAILY folic acid 1 mg tablet See Rx Instructions .ROUTE .COMPLEX Qty: 90 3RF Dose Instruction: TAKE 1 TABLET DAILY Rx Instructions: TAKE 1 TABLET DAILY magnesium gluconate 27 mg magnesium (500 mg) tablet 500 mg PO BID Qty: 30 0RF Rx Instructions: Increased from 500mg daily to BID by Philip on 01/31/24. mg famotidine 20 mg Tablet 20 mg PO BID Qty: 60 0RF Discharge Instructions Instructions: Dementia (ED) Additional Instructions: Please follow-up with care management team referrals. Please return to the emergency department for any worsening symptoms
--- NOTE | 2024-02-04 17:54 | NUR.NOTE ---
Referral faxed to PCP for memory loss later this week. Nursing Note:
--- NOTE | 2024-02-05 09:32 | PDOC.CMPRO ---
Date of service: 02/04/24 Time of Service: 13:30 Care Management Progress Note Progress Note Text Progress Note Text: CM was consulted to meet with Bing and her , Karthik. Per ED provider/consult, cannot take care for patient at home. Bing was lying on a stretcher with her , Karthik by her side, when CM met with them both in the emergency department room. Bing attempted to move around in bed during the visit, and was unable to reposition herself without assistance, which she was resistant to, as she feels that she can do it herself. She displayed little ability to use her arms and no ability to move her legs while CM was in the room. CM requested a PT consult; per report, Bing requires total assistance for all mobility ADLs using a mechanical lift. CM asked about how things have been going at home. Bing stated that she needs more help around the house. When CM asked what would help her she stated having another me, and went on to state that she has to do all of the cooking and cleaning, and her is not helpful with these things. Karthik stated that Bing is mostly bed bound, and he is her primary caregiver, completing all of the surveying crew stake runner, as well as caring for Bing, but she does not remember that she cannot walk. Bing stated that's news to me. Karthik expressed his concern about caring for Bing, as he is feeling that he doesn't know how much longer he can do it. CM discussed options including SNF and caregivers. Bing appeared resistant to SNF, stating that she had a bad experience at [facility], which her agreed with. Per PT, Bing does not qualify for short term rehab, as she is at her baseline functioning, and would not likely have the ability to progress. CM discussed dressmaker garment fitter MARY ANN, which would pay for additional caregivers at home vs mcfp care at a facility. Karthik stated that he has the application and has been filling it out and gathering documents requested, but it is very overwhelming. CM discussed [facility], and they agreed to CM sending a referral for support with paperwork, as well as resources for caregivers at home. Karthik stated that they have a hospital bed, a manual w/c, power w/c, and a dorita lift at home. He has a nephew who lives close by who will come over when needed, but is not there often. Bing has HH services through [facility], nursing once a week and an aide twice a week. Karthik stated that he wants to keep Bing home as long as possible, but is feeling overwhelmed and burned out. CM discussed the costs associated with dressmaker garment fitter care, and he stated that he cannot afford that at this time. CM encouraged him to complete and send in the dressmaker garment fitter MARY ANN application, and offered support with uploading it to [facility] if needed. Bing and Karthik returned home with a resumption of HH services, and a referral to [facility] for additional support with resources in the community. SDOH(Care Management) Screening Will the Patient Participate in the Screening?: Unable to obtain
== END 2024-02-04 16:57 | disposition home or self-care (01) ==
PROVIDERS: Emergency Medicine; Emergency Provider Emergency Medicine; PCP Nurse Practitioner Family
DX: R41.0 Disorientation, unspecified (principal); I10 Essential (primary) hypertension; R27.0 Ataxia, unspecified; Z99.3 Dependence on wheelchair
CPT/HCPCS: 00123; 80048; 97162; 99284; 70450; 71045; 80320; 80329; 81003; 82140; 84439; 84443; 85025

== ENCOUNTER → 2024-02-12 02:49 | Outpatient (CLI) | payer OTHER, SELFPAY ==
--- NOTE | 2024-02-12 11:20 | DI.MRI_ITS ---
Exam(s) MR BRAIN WO EXAM: MR BRAIN WO CLINICAL HISTORY: worsening memory >1 month,HEADACHE,MEMORY CHANGES,R51,R41.3 TECHNIQUE: Multiplanar multisequence MRI of the brain was performed. COMPARISON: MR MR BRAIN WO from 01/01/[address] HEAD WO from 02/04/2024 FINDINGS: Exam is limited by motion. VENTRICLES AND EXTRA AXIAL SPACES: Normal in size and morphology for the patient's age. MIDLINE SHIFT: None. CEREBRAL PARENCHYMA: No focus of restricted diffusion to suggest acute infarct. No space-occupying le alysha identified. Moderate atrophy. Moderate bilateral abnormal high signal in the white matter consi stent with sequela of chronic microvascular disease. HEMORRHAGE: None. BRAINSTEM/CEREBELLUM: Normal. VISUALIZED PARANASAL SINUSES/MASTOIDS:Clear. Vasculature: Normal flow void. PITUITARY GLAND: Unremarkable. ORBITS: Unremarkable. IMPRESSION: Moderate atrophy and white matter changes likely reflecting sequela chronic small vessel disease. Fi ndings are somewhat disproportionate for the patient's age. DATA REPOSITORY:
== END ==
PROVIDERS: PCP Nurse Practitioner Family; Visit Provider Nurse Practitioner Family
DX: R51.9 Headache, unspecified (principal); R41.3 Other amnesia
CPT/HCPCS: 70551

== ENCOUNTER 2024-02-27 11:59 | Outpatient (CLI) | payer OTHER, SELFPAY ==
[2024-02-27 12:26] LABS: ESR 67 mm/hr (0-30)
[2024-02-27 12:31] LABS: Anion Gap 7.8 mmol/L (3-11); BUN 20 mg/dL (7-18); C-Reactive Protein 0.61 mg/dL (<or=0.5); CO2 28.2 mmol/L (21.0-32.0); CREATININE 0.9 mg/dL (0.55-1.02); Calcium 10.6 mg/dL (8.5-10.1); Chloride 110 mmol/L (98-107); Estimated GFR 71.83 (mL/min/1.73m2); Glucose 106 mg/dL (74-106); Magnesium 1.3 mg/dL (1.8-2.4); Potassium 3.9 mmol/L (3.5-5.1); Sodium 146 mmol/L (136-145)
[2024-02-27 12:39] LABS: ALT 16 U/L (14-59); AST 21 U/L (15-37); Albumin 2.8 g/dL (3.4-5.0); Alkaline Phosphatase 90 U/L (46-116); Anion Gap 8.8 mmol/L (3-11); BUN 20 mg/dL (7-18); Bilirubin, Total 0.6 mg/dL (0.2-1.0); CO2 28.2 mmol/L (21.0-32.0); CREATININE 1.1 mg/dL (0.55-1.02); Calcium 10.8 mg/dL (8.5-10.1); Chloride 109 mmol/L (98-107); Estimated GFR 56.46 (mL/min/1.73m2); Glucose 106 mg/dL (74-106); Potassium 3.7 mmol/L (3.5-5.1); Sodium 146 mmol/L (136-145); Total Protein 7.2 g/dL (6.4-8.2)
[2024-02-28 11:15] LABS: Lyme Ab w Rflx to Lyme Confirm Negative (Negative)
[2024-03-01 00:08] LABS: Anaplasma phagocytophilum Negative (Negative); B. miyamotoi PCR Negative (Negative); Babesia divergens/MO-1 Negative (Negative); Babesia duncani Negative (Negative); Babesia microti Negative (Negative); Ehrlichia chaffeensis Negative (Negative); Ehrlichia ewingii/canis Negative (Negative); Ehrlichia muris eauclairensis Negative (Negative)
[2024-03-03 11:55] LABS: Thiamine (Vitamin B1), WB 65 nmol/L (70-180)
[2024-03-11 16:10] LABS: AGNA-1, S Negative (Negative); AMPA-R Ab CBA, S Negative (Negative); ANNA-1, S Negative (Negative); Amphipysin Ab, S Negative titer (Negative)
[2024-03-11 16:11] LABS: ANNA-2, S Negative (Negative); ANNA-3, S Negative (Negative); CASPR2-IgG CBA, S Negative (Negative); CRMP-5-IgG, S Negative (Negative); DPPX Ab IFA, S Negative (Negative); GABA-B-R Ab CBA, S Negative (Negative); GAD65 Ab Assay, S 0.01 nmol/L (<=0.02); GFAP IFA, S Negative (Negative); LGI1-IgG CBA, S Negative (Negative); NMDA-R Ab CBA, S Negative (Negative); PCA-1, S Negative (Negative); PCA-2, S Negative (Negative); mGluR1 Ab IFA, S Negative (Negative)
[2024-03-11 16:18] LABS: PCA-Tr, S Negative (Negative)
[2024-03-11 16:19] LABS: Encephalopathy Interpretation See Comments
== END 2024-02-27 12:00 | disposition home or self-care (01) ==
LOC: LBO 11:59
PROVIDERS: PCP Nurse Practitioner Family; Visit Provider Psychiatry & Neurology Neurology
DX: E87.1 Hypo-osmolality and hyponatremia (principal); E83.42 Hypomagnesemia; R41.3 Other amnesia; R27.0 Ataxia, unspecified
CPT/HCPCS: 36415; 80048; 80053; 83519; 85652; 86255; 86341; 87798; 83735; 84425; 86140; 86618

== ENCOUNTER → 2024-03-13 00:10 | Outpatient (CLI) | payer OTHER, SELFPAY ==
--- NOTE | 2024-03-13 07:45 | DI.MRI_ITS ---
Exam(s) MR BRAIN W EXAM: MR BRAIN W CLINICAL HISTORY: progressive cognitive and physical decline in 4mo,MEMORY CHANGES,R41.3 TECHNIQUE: Multiplanar multisequence MRI of the brain was performed. CONTRAST MATERIAL: IV Contrast: 14 mL of Dotarem contrast administered. COMPARISON: MR MR BRAIN WO from 01/01/2023 MR MR BRAIN WO from 02/12/2024 FINDINGS: The examination is limited due to patient motion artifact. Examination was performed with contrast o nly. The patient had an MRI of the brain without contrast dated 02/12/2024. VENTRICLES AND EXTRA AXIAL SPACES: Ventricular size and extra-axial spaces are stable compared to the examination from 02/12/2024. CEREBRAL PARENCHYMA: Following contrast administration, no enhancing masses are seen. No space-occup adri lesion identified. MIDLINE SHIFT: None. BRAINSTEM/CEREBELLUM: Normal. CALVARIUM: Normal. ENHANCEMENT: No suspicious enhancement identified. VISUALIZED PARANASAL SINUSES/MASTOIDS: Clear. [place]: Normal flow void. PITUITARY GLAND: Unremarkable. OTHER FINDINGS: IMPRESSION: 1. There is patient motion artifact which does limit the examination. 2. This is a limited postcontrast MRI of the brain. Only T1 weighted images were obtained. 3. No intracranial masses or enhancing lesions. DATA REPOSITORY:
[2024-03-13] MEDS: Normal Saline Flush 10 ML SYR IVP (14:00)
[2024-03-13] MEDS: Gadoterate meglumine 20 ML SYRINGE 14 ML IVP (14:01)
== END ==
PROVIDERS: PCP Nurse Practitioner Family; Visit Provider Psychiatry & Neurology Neurology
DX: R41.3 Other amnesia (principal)
CPT/HCPCS: 70552

== ENCOUNTER 2024-03-18 19:50 | Emergency (ER) | payer OTHER, SELFPAY ==
[2024-03-18 19:57] VITALS: BP 101/68; PULSE 82; RESP 16; O2SAT 98
[2024-03-18 20:01] VITALS: BP 114/78; PULSE 68; RESP 16; TEMP 37.1; O2SAT 97
[2024-03-18] MEDS: LORazepam 0.5 MG TAB PO (20:24)
[2024-03-18] MEDS: QUEtiapine 25 MG TAB PO (20:25)
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
[2024-03-18 20:44] VITALS: BP 107/85; PULSE 68; O2SAT 99
--- NOTE | 2024-03-19 00:59 | NUR.NOTE ---
Referral faxed to [facility] to f/u pcp for behavioral occurrence with dementia. This week if possible.Nursing Note:
--- NOTE | 2024-03-19 09:05 | NUR.NOTE ---
Nursing Note: [facility] pharmacy called about a new prescription for haloperidol for the patient due to her already being on seroquel. According to the discharge note, the patient is to start the haloperidol and seroquel is now under the discontinued medication. The pharmacists is going to make sure to [place] the patient to not take the seroquel anymore and to start the haloperidol when she gets there to pick it up. She also stated that she was going to update her list on her end as well to show that seroquel is now discontinued.
== END 2024-03-18 20:45 | disposition home or self-care (01) ==
PROVIDERS: Emergency Provider Emergency Medicine; PCP Nurse Practitioner Family
DX: F03.911 Unspecified dementia, unspecified severity, with agitation
CPT/HCPCS: 99283; 99285

== ENCOUNTER 2025-03-03 16:25 | Emergency (ER) | payer MEDICARE, OTHER, SELFPAY ==
[2025-03-03 16:35] VITALS: BP 137/99; PULSE 64; RESP 20; TEMP 36.9; O2SAT 98
--- NOTE | 2025-03-03 16:44 | ED.GENADUL_ITS ---
Discharge Plan Disposition Patient Disposition: Home Condition: Stable Discharge Details Clinical Impression: Laceration of ankle, right Primary Care Provider: Philip Romero ED Provider: Kala Elliott Home Meds and New Rx's Prescriptions: Continued folic acid 1 mg tablet See Rx Instructions .ROUTE .COMPLEX Qty: 90 3RF Dose Instruction: TAKE 1 TABLET DAILY Rx Instructions: TAKE 1 TABLET DAILY morphine concentrate 100 mg/5 mL (20 mg/mL) solution 5 mg PO Q4H MDD 30 mg PRN (Reason: pain) Qty: 30 0RF Rx Instructions: Palliative care patient. lorazepam 0.5 mg tablet 0.5 mg PO BID PRN (Reason: anxiety) Qty: 60 0RF epinephrine [EpiPen] 0.3 mg/0.3 mL auto-injector 0.3 mg IM Q5-15M PRN (Reason: hypersensitivity reaction) Qty: 2 0RF Rx Instructions: do not exceed 3 doses per episode doxepin 50 mg capsule 25 mg PO QHS gabapentin 300 mg capsule 300 mg PO BID quetiapine [Seroquel] 25 mg tablet 25 mg PO BID CBD gummies 1 ea PO HS PRN thiamine HCl (vitamin B1) 100 mg capsule 100 mg PO BID donepezil 10 mg tablet 10 mg PO DAILY Qty: 90 3RF calcium carbonate [Tums] 200 MG tablet,chewable 4 tab PO DAILY mometasone 0.1 % ointment 1 applic TP DAILY PRN (Reason: skin irritation) Qty: 45 5RF nystatin 100,000 unit/gram powder 1 applic topical QID PRN (Reason: yeast) Qty: 60 0RF atenolol 50 mg tablet See Rx Instructions .ROUTE .COMPLEX Qty: 90 3RF Dose Instruction: TAKE 1 TABLET DAILY Rx Instructions: TAKE 1 TABLET DAILY magnesium gluconate 27 mg magnesium (500 mg) tablet 500 mg PO BID Qty: 30 0RF Rx Instructions: Increased from 500mg daily to BID by Philip on 01/31/24. mg ondansetron 4 mg tablet,disintegrating 4 mg PO Q6H PRN (Reason: nausea and vomiting) Qty: 30 0RF valacyclovir 1 gram tablet 1,000 mg PO TID Qty: 30 0RF Rx Instructions: Take 1 tablet by mouth three times a day for 10 days Discharge Instructions Instructions: Laceration Repair With Stitches ED Additional Instructions: Keep clean and dry. Keep covered for the next 12 to 24 hours. You may then wash under running soap and water. No soaking. Keep pressure bandage on for the first 12 to 24 hours. Have sutures removed in approximately 7 to 10 days. Allow wound to air dry at least 2 hours a day. Return sooner for any signs of infection including increased red streaks, drainage swelling or increased pain. Follow up with primary care provider in 3-5 days. Return to ED sooner if any worsening or concerns. You may have the sutures removed here in the emergency department or for home health as desired. The numbing medicine will wear off in approximately 2 to 3 hours. Referrals: Philip Romero NP [Primary Care Provider] - 1 week HPI General Mode of arrival: wheelchair . Date/Time Provider Initiated Documentation: 03/03/25 16:39 . Limitations to Documentation: no limitations . Information obtained by: patient, RN notes reviewed and old records reviewed . HPI Narrative: 64-year-old female presents to the ER with a right medial ankle laceration which occurred prior to arrival. She is wheelchair-bound she went to move from her lift chair and slid down and caught her ankle on the walker. No hitting head no other injury she does have distal CMS intact to her foot. She has approximately 3 to 4 cm laceration which is linear to the medial aspect of her right ankle. Bleeding controlled with pressure gauze. She is up-to-date on her tetanus vaccination last tetanus was in 2023. She is not on any blood thinners. Does have a history of encephalopathy, polyneuropathy Related Data Home Medications ?Medication ?Instructions ?Recorded ?Confirmed calcium carbonate (Tums) 4 tab PO DAILY 02/10/13 03/03/25 mometasone 0.1 % topical ointment 1 applic topical DAILY PRN skin 01/21/23 03/03/25 irritation #45 grams lorazepam 0.5 mg tablet 0.5 mg PO BID PRN anxiety #60 tabs 03/13/24 03/03/25 nystatin 100,000 unit/gram topical 1 applic topical QID PRN yeast #60 04/01/24 03/03/25 powder grams epinephrine 0.3 mg/0.3 mL 0.3 mg (0.3 mL) IM Q5-15M PRN 08/04/24 03/03/25 injection, auto-injector (EpiPen) hypersensitivity reaction #2 ea atenolol 50 mg tablet See Rx Instructions .Route 08/18/24 03/03/25 .COMPLEX #90 tabs magnesium gluconate 27 mg 500 mg (18.5185 x 27 mg magnesium 08/18/24 03/03/25 magnesium (500 mg) tablet (500 mg)) PO BID #30 tabs folic acid 1 mg tablet See Rx Instructions .Route 08/27/24 03/03/25 .COMPLEX #90 tabs morphine concentrate 100 mg/5 mL 5 mg (0.25 mL) PO Q4H PRN pain #30 11/26/24 03/03/25 (20 mg/mL) oral solution mL ondansetron 4 mg disintegrating 4 mg PO Q6H PRN nausea and 11/30/24 12/09/24 tablet vomiting #30 tabs CBD gummies 1 ea PO HS PRN 12/09/24 03/03/25 donepezil 10 mg tablet 10 mg PO DAILY #90 tabs 12/09/24 03/03/25 doxepin 50 mg capsule 25 mg PO QHS itching 12/09/24 03/03/25 gabapentin 300 mg capsule 300 mg PO BID 12/09/24 03/03/25 quetiapine 25 mg tablet (Seroquel) 25 mg PO BID 12/09/24 03/03/25 thiamine HCl (vitamin B1) 100 mg 100 mg PO BID 12/09/24 03/03/25 capsule valacyclovir 1 gram tablet 1,000 mg PO TID #30 tabs 01/13/25 03/03/25 Previous Rx's ?Medication ?Instructions ?Recorded mometasone 0.1 % topical ointment 1 applic topical DAILY PRN skin 01/21/23 irritation #45 grams lorazepam 0.5 mg tablet 0.5 mg PO BID PRN anxiety #60 tabs 03/13/24 nystatin 100,000 unit/gram topical 1 applic topical QID PRN yeast #60 04/01/24 powder grams epinephrine 0.3 mg/0.3 mL 0.3 mg (0.3 mL) IM Q5-15M PRN 08/04/24 injection, auto-injector (EpiPen) hypersensitivity reaction #2 ea atenolol 50 mg tablet See Rx Instructions .Route 08/18/24 .COMPLEX #90 tabs magnesium gluconate 27 mg 500 mg (18.5185 x 27 mg magnesium 08/18/24 magnesium (500 mg) tablet (500 mg)) PO BID #30 tabs folic acid 1 mg tablet See Rx Instructions .Route 08/27/24 .COMPLEX #90 tabs morphine concentrate 100 mg/5 mL 5 mg (0.25 mL) PO Q4H PRN pain #30 11/26/24 (20 mg/mL) oral solution mL ondansetron 4 mg disintegrating 4 mg PO Q6H PRN nausea and 11/30/24 tablet vomiting #30 tabs donepezil 10 mg tablet 10 mg PO DAILY #90 tabs 12/09/24 valacyclovir 1 gram tablet 1,000 mg PO TID #30 tabs 01/13/25 Allergies Allergy/AdvReac Type Severity Reaction Status Date / Time oxycodone Allergy Intermediate Anaphylaxis Verified 03/03/25 16:33 sucralfate Allergy Intermediate Itching Verified 03/03/25 16:33 furosemide Allergy Mild Anaphylaxis Verified 03/03/25 16:33 hydrochlorothiazide Allergy Mild Anaphylaxis Verified 03/03/25 16:33 influenza A (H5N1) virus AdvReac Anaphylaxis Verified 03/03/25 16:33 vaccine mo General Stated Complaint: Laceration MAURICIO: 4 Review of Systems Integumentary/Breasts Skin/Breast: Reports as per HPI and Reports wounds (Laceration right medial ankle) Exam Extrem Right lower extremity: ankle Details: laceration medial Details: linear, actively bleeding, with motor nerve function intact, with sensation intact, with distal motor nerve function intact, with distal sensation intact and with distal tendon function intact Ankle/foot/toe images: 2 1. Approximately 3 cm laceration with slow venous ooze Course Vital Signs Vital signs: Vital Signs Temperature 36.9 C 03/03/25 16:35 Pulse 64 03/03/25 16:35 Respiratory Rate 20 03/03/25 16:35 Blood Pressure 137/99 H 03/03/25 16:35 Pulse Oximetry 98 03/03/25 16:35 Temperature 36.9 C 03/03/25 16:35 Temperature Source Oral 03/03/25 16:35 Pulse 64 03/03/25 16:35 Respiratory Rate 20 03/03/25 16:35 Blood Pressure 137/99 H 03/03/25 16:35 Blood Pressure Position Sitting 03/03/25 16:35 Pulse Oximetry 98 03/03/25 16:35 Oxygen Delivery Method Room Air 03/03/25 16:35 Oxygen Flow Rate 0 03/03/25 16:35 Procedure Laceration Laceration 1: Date of Procedure: 03/03/25 Time of procedure: 17:31 Provider that performed the procedure: Kala Morrissey Time Out Performed: Yes Patient Consented: Verbally Site: lower extremity (Right medial ankle) Side (If applicable): right Description: irregular Depth: simple, single layer Local anesthetic: Lidocaine 2%, with Epi and LET(lidocaine epinephrine tetracaine) Amount of anesthesia used (mL): 4 Pre-repair:: wound explored, irrigated extensively and deep structures intact Skin layer closed with: nylon Suture size: 4-0 Number of sutures:: 5 Technique: simple, interrupted Procedure Description/Note: Area and incised with 2% lidocaine with epi, and topical let was applied prior. 5 simple interrupted sutures placed, wound well-approximated. Continue with small venous ooze. Will place a pressure dressing on to ankle. Medical Decision Making 64-year-old female presents to the ER with a right medial ankle laceration which occurred prior to arrival. She is wheelchair-bound she went to move from her lift chair and slid down and caught her ankle on the walker. No hitting head no other injury she does have distal CMS intact to her foot. She has approximately 3 to 4 cm laceration which is linear to the medial aspect of her right ankle. Bleeding controlled with pressure gauze. She is up-to-date on her tetanus vaccination last tetanus was in 2023. She is not on any blood thinners. Does have a history of encephalopathy, polyneuropathy Will do some wound care with chlorhexidine, applied topical let anesthetized with 2% lidocaine with epinephrine and repaired with sutures. Laceration repaired with number five 4.0 Prolene simple interrupted sutures. Discussed home care and strict return instructions and signs of infection. Instructed to have sutures removed in 7 to 10 days. This text was generated using [employer] Videoation system, please disregard any oddities of phrase or misspellings. Medical Records Medical records reviewed: Yes I reviewed the patient's medical records. Quality:SDOH Health Related Social Needs: 2 No Data to Display PFSH All Active Problems (Updated 03/03/25 @ 17:33 by Kala Elliott NP) Laceration of ankle, right (Acute) Peripheral neuropathy (Acute) Pruritus (Acute) Palliative care patient (Acute) Ambulatory dysfunction (Acute) Rapidly progressive dementia (Acute) Hypoparathyroidism (Acute) Memory changes (Acute) Hypomagnesemia (Acute) Acute hyponatremia (Acute) Pernicious anemia (Acute 09/26/06) pern Hyperlipidemia (Acute) Headache (Acute 09/26/04) w/vision problems; MRI-demyelination areas vs. sm. vessel disease;MRI 09/01-? 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 [facility] [place] Folic acid deficiency (Acute) Psoriasis (Chronic) steroids topical as needed Sleep apnea (Acute) CPAP since 2018 Skin lesion (Acute) Rhinosinusitis (Acute) Generalized weakness (Acute) Frequent falls (Acute) Polyneuropathy (Acute) Ataxia (Acute) Spinal stenosis of lumbar region (Chronic) Medical History Acute metabolic encephalopathy UTI (urinary tract infection) Syncope Alcohol intoxication Lactic acid acidosis UTI (urinary tract infection) HTN (hypertension) Non-toxic uninodular goiter thyroid cyst-removed by Dr. Flores 1999 Surgical History Status post cholecystectomy Cholecystectomy Family History Mother , age 48 Breast cancer Father , age 90 Stomach cancer Sister No problems noted. Brother No problems noted. Brother No problems noted. Brother No problems noted. Maternal Grandmother , in her 80s No problems noted. Paternal Grandmother , in her 80s No problems noted. Other Syncope Social History Smoking/Tobacco Use Status: Never Smoking risk assessment performed?: Yes Alcohol Intake: current Alcohol Intake frequency: 0-2 drinks per day Alcohol type: beer, wine and hard liquor Drug use: Never Details: Per states in the last month zero Caregiver/Support person: No Household members: spouse Housing: house Communication Needs: None Do you need help understanding health information?: Never Pets and animals: No Sexually active: No Do you think of yourself as: straight/heterosexual Current gender identity: female What is your relationship status?: How often do you talk on the phone with friends or family?: three or more times per week How often do you get together with friends or relatives?: once per week How often do you attend mu-ism or rastafarian services?: 1-3 times per year Do you belong to any clubs or organized social groups?: yes Panel score (0-1 are the most socially isolated patients): 3 What type of physical activity do you participate in: none Jodee/Yazdanism: Amish Special jodee needs: No Seatbelt use: always Drive intox 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
[2025-03-03] MEDS: Lidocaine/Epinephri/Tetracaine Topical Gel 3 ML TP (16:56)
[2025-03-03 18:01] VITALS: BP 122/80; PULSE 66; RESP 15; O2SAT 96
== END 2025-03-03 18:01 | disposition home or self-care (01) ==
LOC: ER 18:04
PROVIDERS: Emergency Provider Registered Nurse Emergency; PCP Nurse Practitioner Family
DX: S91.011A Laceration without foreign body, right ankle, initial encounter (principal); X58.XXXA Exposure to other specified factors, initial encounter
CPT/HCPCS: 12002; 12001

== ENCOUNTER 2025-04-29 13:36 | Emergency (ER) | payer MEDICARE, OTHER, SELFPAY ==
[2025-04-29 13:40] VITALS: BP 124/82; PULSE 58; RESP 16; TEMP 36.3; O2SAT 98
[2025-04-29 14:34] LABS: COVID-19 PCR Negative (Negative); RSV PCR Negative (Negative)
[2025-04-29] MEDS: Albuterol/Ipratropium 3 ML UPD VIAL UPD (14:34)
[2025-04-29] MEDS: Dexamethasone 10 MG/ML VIAL IVP (14:34)
[2025-04-29 14:42] VITALS: BP 124/82; PULSE 58; RESP 16; TEMP 36.3; O2SAT 98
--- NOTE | 2025-04-29 15:28 | DI.RAD_ITS ---
Exam(s) XR CHEST 2V PA LATERAL EXAM: XR CHEST 2V PA LATERAL CLINICAL HISTORY: shortness of breath, wheezing TECHNIQUE: 2D digital imaging was performed. Two views. COMPARISON: CR XR CHEST 2V PA LATERAL from 01/17/2024 CR XR CHEST 1V IN DI DEPT from 02/04/2024 FINDINGS: The exam is limited by patient body habitus. There is under penetration at the lung bases. HEART: Enlarged, unchanged. Aorta: Not dilated. PULMONARY VASCULATURE: Normal. MEDIASTINUM: Unremarkable. LUNGS: Clear. PLEURAL SPACE: No pleural effusion or pneumothorax. BONE:Unremarkable for age. SOFT TISSUES: Unremarkable. IMPRESSION: No acute abnormality. DATA REPOSITORY: RADIATION DOSE DELIVERED:
--- NOTE | 2025-04-29 15:59 | W.ED.GENAD ---
Discharge Plan Disposition Patient Disposition: Home Condition: Stable Discharge Details Clinical Impression: Bronchitis Primary Care Provider: Philip Romero ED Provider: Aster Abad Home Meds and New Rx's Prescriptions: New prednisone 20 mg tablet 40 mg PO ONCE Qty: 8 0RF albuterol sulfate [Ventolin HFA] 90 mcg/actuation HFA aerosol inhaler 2 puff inhalation Q6H PRNQty: 6.7 0RF doxycycline hyclate 100 mg capsule 100 mg PO BID Qty: 10 0RF Continued folic acid 1 mg tablet See Rx Instructions .ROUTE .COMPLEX Qty: 90 3RF Dose Instruction: TAKE 1 TABLET DAILY Rx Instructions: TAKE 1 TABLET DAILY morphine concentrate 100 mg/5 mL (20 mg/mL) solution 5 mg PO Q4H MDD 30 mg PRN (Reason: pain) Qty: 30 0RF Rx Instructions: Palliative care patient. lidocaine 5 % adhesive patch,medicated 1 patch topical DAILY Qty: 15 4RF Rx Instructions: leave on most painful area (R hip) for up to 12 hrs lorazepam 0.5 mg tablet 0.5 mg PO BID PRN (Reason: anxiety) Qty: 60 0RF epinephrine [EpiPen] 0.3 mg/0.3 mL auto-injector 0.3 mg IM Q5-15M PRN (Reason: hypersensitivity reaction) Qty: 2 0RF Rx Instructions: do not exceed 3 doses per episode doxepin 50 mg capsule 25 mg PO QHS gabapentin 300 mg capsule 300 mg PO BID quetiapine [Seroquel] 25 mg tablet 25 mg PO BID CBD gummies 1 ea PO HS PRN thiamine HCl (vitamin B1) 100 mg capsule 100 mg PO BID donepezil 10 mg tablet 10 mg PO DAILY Qty: 90 3RF calcium carbonate [Tums] 200 MG tablet,chewable 4 tab PO DAILY mometasone 0.1 % ointment 1 applic TP DAILY PRN (Reason: skin irritation) Qty: 45 5RF nystatin 100,000 unit/gram powder 1 applic topical QID PRN (Reason: yeast) Qty: 60 0RF atenolol 50 mg tablet See Rx Instructions .ROUTE .COMPLEX Qty: 90 3RF Dose Instruction: TAKE 1 TABLET DAILY Rx Instructions: TAKE 1 TABLET DAILY magnesium gluconate 27 mg magnesium (500 mg) tablet 500 mg PO BID Qty: 30 0RF Rx Instructions: Increased from 500mg daily to BID by Philip on 01/31/24. mg ondansetron 4 mg tablet,disintegrating 4 mg PO Q6H PRN (Reason: nausea and vomiting) Qty: 30 0RF valacyclovir 1 gram tablet 1,000 mg PO TID Qty: 30 0RF Rx Instructions: Take 1 tablet by mouth three times a day for 10 days Discharge Instructions Instructions: Acute bronchitis Additional Instructions: Take the doxycycline as prescribed, at this this evening Take the prednisone as prescribed, next dose of steroid will be tomorrow Use the albuterol 2 puffs every 4-6 hours as needed for cough, wheeze, shortness of breath Some [id number] Mucinex Hot tea with honey and lemon Please be reevaluated in 24 to 48 hours with your primary care physician Fever, chills, worsening shortness of breath please present for assessment Referrals: Philip Romero, [employer] [Primary Care Provider, Medicine] - 2 days HPI General Date/Time Provider Initiated Documentation: 04/29/25 13:52. HPI Narrative: 65-year-old female with muscular neuropathy/polyneuropathy, wheelchair-bound, hyperlipidemia, hypertension, and dementia. Presents with upper respiratory symptoms progressing to lower respiratory symptoms over the past month. Experiencing wheezing and bothersome mucus accumulation for several days. No shortness of breath, chest pain, COPD, asthma, sick contacts, peripheral edema, calf swelling, tenderness, or history of PE. Related Data Home Medications ?Medication ?Instructions ?Recorded ?Confirmed calcium carbonate (Tums) 4 tab PO DAILY 02/10/13 04/29/25 mometasone 0.1 % topical ointment 1 applic topical DAILY PRN skin 01/21/23 04/29/25 irritation #45 grams lorazepam 0.5 mg tablet 0.5 mg PO BID PRN anxiety #60 tabs 03/13/24 04/29/25 nystatin 100,000 unit/gram topical 1 applic topical QID PRN yeast #60 04/01/24 04/29/25 powder grams epinephrine 0.3 mg/0.3 mL 0.3 mg (0.3 mL) IM Q5-15M PRN 08/04/24 04/29/25 injection, auto-injector (EpiPen) hypersensitivity reaction #2 ea atenolol 50 mg tablet See Rx Instructions .Route 08/18/24 04/29/25 .COMPLEX #90 tabs magnesium gluconate 27 mg 500 mg (18.5185 x 27 mg magnesium 08/18/24 04/29/25 magnesium (500 mg) tablet (500 mg)) PO BID #30 tabs folic acid 1 mg tablet See Rx Instructions .Route 08/27/24 04/29/25 .COMPLEX #90 tabs morphine concentrate 100 mg/5 mL 5 mg (0.25 mL) PO Q4H PRN pain #30 11/26/24 04/29/25 (20 mg/mL) oral solution mL ondansetron 4 mg disintegrating 4 mg PO Q6H PRN nausea and 11/30/24 04/29/25 tablet vomiting #30 tabs CBD gummies 1 ea PO HS PRN 12/09/24 04/29/25 donepezil 10 mg tablet 10 mg PO DAILY #90 tabs 12/09/24 04/29/25 doxepin 50 mg capsule 25 mg PO QHS itching 12/09/24 04/29/25 gabapentin 300 mg capsule 300 mg PO BID 12/09/24 04/29/25 quetiapine 25 mg tablet (Seroquel) 25 mg PO BID 12/09/24 04/29/25 thiamine HCl (vitamin B1) 100 mg 100 mg PO BID 12/09/24 04/29/25 capsule valacyclovir 1 gram tablet 1,000 mg PO TID #30 tabs 01/13/25 04/29/25 lidocaine 5 % topical patch 1 patch topical DAILY #15 ea 03/04/25 04/29/25 albuterol sulfate 90 mcg/actuation 2 puff inhalation Q6H PRN #6.7 04/29/25 aerosol inhaler (Ventolin HFA) grams doxycycline hyclate 100 mg capsule 100 mg PO BID #10 caps 04/29/25 prednisone 20 mg tablet 40 mg (2 x 20 mg) PO ONCE #8 tabs 04/29/25 Previous Rx's ?Medication ?Instructions ?Recorded mometasone 0.1 % topical ointment 1 applic topical DAILY PRN skin 01/21/23 irritation #45 grams lorazepam 0.5 mg tablet 0.5 mg PO BID PRN anxiety #60 tabs 03/13/24 nystatin 100,000 unit/gram topical 1 applic topical QID PRN yeast #60 04/01/24 powder grams epinephrine 0.3 mg/0.3 mL 0.3 mg (0.3 mL) IM Q5-15M PRN 08/04/24 injection, auto-injector (EpiPen) hypersensitivity reaction #2 ea atenolol 50 mg tablet See Rx Instructions .Route 08/18/24 .COMPLEX #90 tabs magnesium gluconate 27 mg 500 mg (18.5185 x 27 mg magnesium 08/18/24 magnesium (500 mg) tablet (500 mg)) PO BID #30 tabs folic acid 1 mg tablet See Rx Instructions .Route 08/27/24 .COMPLEX #90 tabs morphine concentrate 100 mg/5 mL 5 mg (0.25 mL) PO Q4H PRN pain #30 11/26/24 (20 mg/mL) oral solution mL ondansetron 4 mg disintegrating 4 mg PO Q6H PRN nausea and 11/30/24 tablet vomiting #30 tabs donepezil 10 mg tablet 10 mg PO DAILY #90 tabs 12/09/24 valacyclovir 1 gram tablet 1,000 mg PO TID #30 tabs 01/13/25 lidocaine 5 % topical patch 1 patch topical DAILY #15 ea 03/04/25 albuterol sulfate 90 mcg/actuation 2 puff inhalation Q6H PRN #6.7 04/29/25 aerosol inhaler (Ventolin HFA) grams doxycycline hyclate 100 mg capsule 100 mg PO BID #10 caps 04/29/25 prednisone 20 mg tablet 40 mg (2 x 20 mg) PO ONCE #8 tabs 04/29/25 Allergies Allergy/AdvReac Type Severity Reaction Status Date / Time oxycodone Allergy Intermediate Anaphylaxis Verified 04/29/25 13:38 sucralfate Allergy Intermediate Itching Verified 04/29/25 13:38 furosemide Allergy Mild Anaphylaxis Verified 04/29/25 13:38 hydrochlorothiazide Allergy Mild Anaphylaxis Verified 04/29/25 13:38 influenza A (H5N1) virus AdvReac Anaphylaxis Verified 04/29/25 13:38 vaccine mo General Stated Complaint: RespSymp MAURICIO: 3 Exam Narrative Exam Narrative: General Appearance: Alert, oriented, wheelchair-bound, no acute distress. Vital signs: Oxygenation on room air: 98%. HEENT: Within normal limits. Respiratory: Scant, scattered wheezes throughout lungs, good aeration, no respiratory distress. Cardiovascular: Regular heart rate and rhythm. Extremities: No significant peripheral edema in bilateral lower extremities. Skin: Warm and dry, no rash. Neurological: Normal. Course Vital Signs Vital signs: Vital Signs Temperature 36.3 C L 04/29/25 13:40 Pulse 58 L 04/29/25 13:40 Respiratory Rate 16 04/29/25 13:40 Blood Pressure 124/82 04/29/25 13:40 Pulse Oximetry 98 04/29/25 13:40 Temperature 36.3 C L 04/29/25 14:42 Temperature Source Oral 04/29/25 13:40 Pulse 58 L 04/29/25 14:42 Respiratory Rate 16 04/29/25 14:42 Respiratory Effort Normal 04/29/25 14:43 Respiratory Depth Normal 04/29/25 14:43 Blood Pressure 124/82 04/29/25 14:42 Blood Pressure Position Sitting 04/29/25 13:40 Pulse Oximetry 98 04/29/25 14:42 Oxygen Delivery Method Room Air 04/29/25 13:40 Oxygen Flow Rate 0 04/29/25 13:40 Pain Level 92 04/29/25 13:40 Lab/Test Results Lab/Test Results: Laboratory Tests Range/Units 04/29/25 13:41 COVID-19 Source Nasopharynx SARS-CoV-2 (PCR) (Negative) Negative Influenza Type A (PCR) (Negative) Negative Influenza Type B (PCR) (Negative) Negative RSV (PCR) (Negative) Negative Medical Decision Making Initial Assessment: 65-year-old female with history of muscular neuropathy/polyneuropathy, hyperlipidemia, hypertension, dementia, presents with upper respiratory symptoms progressing to lower respiratory symptoms over the past month. Wheezing and mucus accumulation reported. No history of COPD or asthma. No peripheral edema or signs of PE. Oxygenation on room air: 98%. Patient is alert and oriented, wheelchair-bound, in no acute distress, with scant and scattered wheezes throughout lungs but good aeration, no respiratory distress, cardiac rate and rhythm regular. ED Course: - Administered DuoNeb, resulting in symptomatic improvement and diminished wheezing. - Chest x-ray per radiology interpretation. My review does not show evidence of acute abnormality - Oxygenation on room air: 98%. Final Assessment: Patient presented with upper respiratory symptoms progressing to lower respiratory symptoms over the past month, with wheezing and mucus accumulation. Administered DuoNeb, resulting in symptomatic improvement and diminished wheezing. Chest x-ray interpreted by radiology. Oxygenation on room air: 98%. Clinical Impression: - Upper respiratory infection. Disposition: - Follow-Up: Close outpatient reassessment necessary. [facility] Evaluation: - Number of Differential Diagnoses or Management Options: Upper respiratory infection. - Amount and Complexity of Data Reviewed: Chest x-ray interpreted by radiology. - Risk of Complication and Morbidity or Mortality: Low risk based on current symptoms and treatment plan. PFSH All Active Problems (Updated 04/29/25 @ 15:48 by SENDY Steiner) Bronchitis (Acute) Peripheral neuropathy (Acute) Pruritus (Acute) Palliative care patient (Acute) Ambulatory dysfunction (Acute) Rapidly progressive dementia (Acute) Hypoparathyroidism (Acute) Memory changes (Acute) Hypomagnesemia (Acute) Acute hyponatremia (Acute) Pernicious anemia (Acute 09/26/06) pern Hyperlipidemia (Acute) Headache (Acute 09/26/04) w/vision problems; MRI-demyelination areas vs. sm. vessel disease;MRI 09/01-? of small aneurysm @L clinoids and L ICA 2020- optical migraines- Dr Adams ([facility]) Gastroesophageal reflux disease with esophagitis (Acute) Essential hypertension (Acute) Pedal edema (Acute) 12/2020 Echo- EF 60%, Mildly dilated ascending aorta measuring 3.34 cm Spondylolisthesis at L5-S1 level (Acute) xray 2002-thoracic DJD; L5 spondylo w/Grade II;spondylolisthesis L5 on S1 Surgery 05[place]16- [place] [facility] [place]olic acid deficiency (Acute) Psoriasis (Chronic) steroids topical as needed Sleep apnea (Acute) CPAP since 2019 Skin lesion (Acute) Rhinosinusitis (Acute) Generalized weakness (Acute) Frequent falls (Acute) Polyneuropathy (Acute) Ataxia (Acute) Spinal stenosis of lumbar region (Chronic) Medical History Acute metabolic encephalopathy UTI (urinary tract infection) Syncope Alcohol intoxication Lactic acid acidosis UTI (urinary tract infection) HTN (hypertension) Non-toxic uninodular goiter thyroid cyst-removed by Dr. Flores 1999 Surgical History Status post cholecystectomy Cholecystectomy Family History Mother , age 48 Breast cancer Father , age 90 Stomach cancer Sister No problems noted. Brother No problems noted. Brother No problems noted. Brother No problems noted. Maternal Grandmother , in her 80s No problems noted. Paternal Grandmother , in her 80s No problems noted. Other Syncope Social History Smoking/Tobacco Use Status: Never Smoking risk assessment performed?: Yes Alcohol Intake: current Alcohol Intake frequency: 0-2 drinks per day Alcohol type: beer, wine and hard liquor Drug use: Never Details: Per states in the last month zero Caregiver/Support person: No Household members: spouse Housing: house Communication Needs: None Do you need help understanding health information?: Never Pets and animals: No Sexually active: No Do you think of yourself as: straight/heterosexual Current gender identity: female What is your relationship status?: How often do you talk on the phone with friends or family?: three or more times per week How often do you get together with friends or relatives?: once per week How often do you attend baptism or taoist services?: 1-3 times per year Do you belong to any clubs or organized social groups?: yes Panel score (0-1 are the most socially isolated patients): 3 What type of physical activity do you participate in: none Jodee/Temple: Worship Special jodee needs: No Seatbelt use: always Drive intox 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 vibratory pile driver: No Do you feel safe at home: Yes Do you feel safe in your relationship?: Yes Additional Social history: [employer] PAWSS Have you Been Recently Intoxicated or Drunk Within the Last 30 days?: No Have you Ever Experienced Previous Episodes of Alcohol Withdrawal?: No Have you ever Experienced Withdrawal Seizures?: No Have you ever Experienced Delirium Tremens(DT)s?: No Have you ever undergone Alcohol Rehabilitation Treatment (i.e, inpt ot outpatient treatment programs)?: No Have you ever Experienced Blackouts?: No Have you ever Combined Alcohol with other Downers within the last 90 days?: No Have you ever Combined Alcohol with any other Substance of Abuse during the last 90 days?: No Positive Blood Alcohol level on Presentation? [PCS.BAL]: No Evidence of Increased Autonomic Activity (i.e. HR>120, tremor, sweating, agitation, nausea)?: No Result: 0
== END 2025-04-29 16:05 | disposition home or self-care (01) ==
LOC: ER 16:21
PROVIDERS: Student in an Organized Health Care Education/Training Program; Emergency Provider Physician Assistant; PCP Nurse Practitioner Family
DX: J40 Bronchitis, not specified as acute or chronic (principal)
CPT/HCPCS: 99283; 99284; 96374; 94640; 87637; 71046; J1100; J7620

== ENCOUNTER → 2025-05-12 09:10 | Outpatient (BNVA) | payer MEDICARE, OTHER, SELFPAY | PROVIDERS: PCP Nurse Practitioner Family; Referring Provider Nurse Practitioner Family; Visit Provider Psychiatry & Neurology Neurology | DX: R53.1 Weakness (principal); R29.6 Repeated falls; G62.9 Polyneuropathy, unspecified; M48.061 Spinal stenosis, lumbar region without neurogenic claudication; R41.3 Other amnesia; R27.0 Ataxia, unspecified; F03.90 Unspecified dementia, unspecified severity, without behavioral disturbance, psychotic disturbance, mood disturbance, and anxiety; I12.9 Hypertensive chronic kidney disease with stage 1 through stage 4 chronic kidney disease, or unspecified chronic kidney disease; N18.9 Chronic kidney disease, unspecified | CPT/HCPCS: 99214 ==